=== PATIENT | female | born 1950 | race Caucasian/White ===

== ENCOUNTER → 2021-07-30 | Outpatient (CLI) | payer MEDICARE, SELFPAY ==
[2021-07-30 10:48] LABS: International Normalized Ratio 2.3; Prothrombin Time (Protime)PT. 24.9 SECONDS (11.7-14.9)
== END | disposition home or self-care (01) ==
LOC: LABSPEC 10:16
PROVIDERS: PCP Family Medicine; Referring Provider Family Medicine; Visit Provider Family Medicine
DX: I48.0 Paroxysmal atrial fibrillation (principal); Z79.01 Long term (current) use of anticoagulants; Z86.73 Personal history of transient ischemic attack (TIA), and cerebral infarction without residual deficits
CPT/HCPCS: 85610

== ENCOUNTER 2022-02-28 09:38 | Inpatient (IN) | payer MEDICARE, SELFPAY ==
[2022-02-28] VITALS (17 sets, daily range): BP systolic 92–132; BP diastolic 41–81; PULSE 84–108; RESP 13–20; TEMP 35.6–37.5; O2SAT 95–100; BMI 30.2; BMI 30.6
--- NOTE | 2022-02-28 09:56 | EDS_ITS ---
HPI History of Present Illness Chief Complaint: Weakness Narrative Narrative: 71-year-old female presenting with generalized weakness. She was sent to the emergency room specifically because her hemoglobin is low. Patient has a history of bleeding internal and external hemorrhoids. She is on Coumadin due to history of A. fib. She states last time she was in the hospital a couple of years ago she had upper and lower endoscopy and notes that she had internal and external hemorrhoids but also states that they could not find a source of bleeding. Patient has been transfused several times. Patient's hemoglobin from 09/27/2021 was 12.5 and this was rechecked again on 02/26/2022 and is now 8.6. The patient does note that she does have dark stool but states its not black. She states she has noted that her external hemorrhoids have not been bleeding and she wears a pad. She feels generally fatigued and does have difficulty walking across the room. At times she feels short of breath. She does note that she is more pale than usual. [facility] Medical History Acute blood loss anemia Aspiration pneumonia Bleeding hemorrhoids Essential (primary) hypertension History of CVA (cerebrovascular accident) (2009) History of idiopathic hypertrophic subaortic stenosis History of lower GI bleeding (10/26/15) Hyperlipidemia Hypertrophic cardiomyopathy Hypotension Iron deficiency anemia Left bundle branch block Nonrheumatic mitral (valve) insufficiency Nonrheumatic tricuspid (valve) insufficiency Paroxysmal atrial fibrillation Secondary pulmonary hypertension Tobacco use Troponin I above reference range Vitamin B 12 deficiency Home Medications pravastatin 40 mg tablet 40 mg PO DAILY 02/03/13 [History Last Taken 02/27/22] polysaccharide iron complex 150 mg iron capsule (Ferrex) 150 mg PO DAILY 10/01/18 [History Last Taken Unknown] metoprolol tartrate 50 mg tablet 50 mg PO BID #180 tabs 11/02/18 [Rx Last Taken 02/27/22] omeprazole 20 mg capsule,delayed release 20 mg PO DAILY GERD 02/28/22 [History Last Taken 02/27/22] warfarin 4 mg tablet 4 mg PO DAILY 02/28/22 [History Last Taken 02/27/22] Allergy/AdvReac Type Severity Reaction Status Date / Time verapamil Allergy Unknown Verified 02/28/22 09:39 Family History Mother Diabetes Heart disease Father Cancer Surgical History History of right and left heart catheterization (04/04/16) 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) Social History Smoking Status: Former smoker quit date: 01/09/17 pack-years: 24 ROS ROS ED Constitutional Constitutional ED: Denies chills or fever(s) Eyes Eyes: Denies change in vision or diplopia ENT ENT ED: Denies rhinorrhea or sore throat Cardiovascular Cardiovascular: Denies chest pain or palpitations Respiratory/Chest Respiratory/Chest: Reports dyspnea on exertion Gastrointestinal Gastrointestinal: Reports melena; Denies abdominal pain, nausea or vomiting Genitourinary Genitourinary ED: Denies dysuria or hematuria Musculoskeletal Musculoskeletal: Denies arthralgias Integumentary Reports other Details: Pallor ; Denies abscess Neurologic Neurologic: Denies headache(s) or paresthesias Psychiatric Psychiatric: Denies anxiety or depression EXAM Physical Exam Const Vital Signs: 02/28/22 09:39 02/28/22 10:45 02/28/22 10:58 Temperature 96.0 F L Temperature Source Temporal Pulse Rate 94 Pulse Rate [Lying] 90 Pulse Rate [Sitting (for 1 minute prior to obtaining)] 100 Pulse Rate [Standing (for 1 minute prior to obtaining)] 108 H Respiratory Rate 17 Respiratory Effort Normal Non-Labored Respiratory Pattern Normal Blood Pressure 125/81 H Blood Pressure [Lying] 113/56 L Blood Pressure [Sitting (for 1 minute prior to obtaining)] 122/72 H Blood Pressure [Standing (for 1 minute prior to obtaining)] 94/41 L Blood Pressure Mean 95 Blood Pressure Mean [Lying] 75 Blood Pressure Mean [Sitting (for 1 minute prior to obtaining)] 88 Blood Pressure Mean [Standing (for 1 minute prior to obtaining)] 58 Blood Pressure Source Blood Pressure Position Blood Pressure Location Pulse Ox 100 Oxygen Delivery Method Room Air 02/28/22 11:31 02/28/22 11:46 02/28/22 11:50 Temperature 98.0 F 98.4 F Temperature Source Oral Oral Pulse Rate 87 88 88 Pulse Rate [Lying] Pulse Rate [Sitting (for 1 minute prior to obtaining)] Pulse Rate [Standing (for 1 minute prior to obtaining)] Respiratory Rate 13 13 20 H Respiratory Effort Respiratory Pattern Blood Pressure 108/67 112/58 L 112/58 L Blood Pressure [Lying] Blood Pressure [Sitting (for 1 minute prior to obtaining)] Blood Pressure [Standing (for 1 minute prior to obtaining)] Blood Pressure Mean 80 76 76 Blood Pressure Mean [Lying] Blood Pressure Mean [Sitting (for 1 minute prior to obtaining)] Blood Pressure Mean [Standing (for 1 minute prior to obtaining)] Blood Pressure Source Monitor Monitor Blood Pressure Position Semi-Fowlers Semi-Fowlers Blood Pressure Location Left Arm Left Arm Pulse Ox 98 98 97 Oxygen Delivery Method Room Air Room Air Room Air 02/28/22 12:27 02/28/22 12:43 02/28/22 13:26 Temperature 98.4 F 98.6 F 97.7 F L Temperature Source Oral Oral Oral Pulse Rate 87 86 85 Pulse Rate [Lying] Pulse Rate [Sitting (for 1 minute prior to obtaining)] Pulse Rate [Standing (for 1 minute prior to obtaining)] Respiratory Rate 14 20 H 16 Respiratory Effort Respiratory Pattern Blood Pressure 106/60 103/56 L 92/71 Blood Pressure [Lying] Blood Pressure [Sitting (for 1 minute prior to obtaining)] Blood Pressure [Standing (for 1 minute prior to obtaining)] Blood Pressure Mean 75 71 78 Blood Pressure Mean [Lying] Blood Pressure Mean [Sitting (for 1 minute prior to obtaining)] Blood Pressure Mean [Standing (for 1 minute prior to obtaining)] Blood Pressure Source Monitor Monitor Blood Pressure Position Semi-Fowlers Semi-Fowlers Blood Pressure Location Left Arm Pulse Ox 97 97 97 Oxygen Delivery Method Room Air Room Air Room Air Positive well nourished General Appearance ED: NAD HEENT Reports moist mucous membranes Eyes PERRL and EOMs intact bilaterally General Eye ED: Yes pale conjunctiva Neck no lymphadenopathy Resp normal respiratory effort and clear to auscultation bilaterally Auscultation: Negative for rales or rhonchi Cardio regular rate and regular rhythm GI normal to inspection, nondistended, normoactive bowel sounds GI Narrative: Multiple external hemorrhoids which appear to be nonthrombosed, nonbleeding, minimally tender Neuro oriented x3 and CN's II-XII intact bilaterally Sensorium / Orientation: alert Motor Exam: general weakness Psych mental status grossly normal MDM MDM MDM Narrative Medical decision making narrative: Patient presenting with anemia and generalized fatigue. She does have a history of anemia. She states she has been transfused about 5 times. Patient's hemoglobin has dropped from 12.5-8.6. Her last hemoglobin was 2 days ago. We will obtain a CBC to assess for worsening anemia. Liver function and electrolytes will also be assessed given her weakness. For this reason a urinalysis will also be obtained. Since likely the source is acute blood loss anemia I will have her typed and screened. CBC shows a white blood cell count of 6.6 which is normal. Hemoglobin is dropped to 6.8. Platelets are normal at 194. Patient was typed, screened, crossmatched for 2 units. Orthostatics were positive. INR is therapeutic at 3.1. Renal function and electrolytes within normal limits. Glucose is elevated at 189 without anion gap. Liver function testing is normal. High-sensitivity troponin is 26. EKG was obtained and this shows normal sinus rhythm at a ventricular rate of 83 bpm with a left bundle branch block. Chest x-ray was a obtained due to dyspnea with exertion and this shows no acute cardiopulmonary process. Urinalysis was obtained due to generalized weakness and this shows positive nitrites, 500 leukocyte esterase, 25-50 white blood cells with 2+ bacteria. There are 5 to 10 seconds epithelial cells but given her weakness I did give her a gram of Rocephin and sent her urine for culture. I spoke with Dr. Blank from GI who recommended holding her Coumadin and giving her a bowel prep and he would perform upper and lower endoscopy tomorrow. This was discussed with the patient as well and she is amenable to this. She would not let me do an occult stool and refused a digital rectal exam. She did let me externally examine her rectum and there are again hemorrhoids here that are not actively bleeding and do not look thrombosed or infected. There is no blood visualized. Patient was discussed with hospitalist for admission. Impression: 1. Generalized weakness 2. Acute blood loss anemia 3. UTI 4. Dyspnea Lab Data Attestation: I reviewed the patient's lab results. Labs: Laboratory Results - last 24 hr 02/28/22 02/28/22 02/28/22 09:55 09:55 09:55 WBC 6.6 RBC 2.19 L Hgb 6.8 L Hct 20.9 L MCV 95.4 MCH 31.1 MCHC 32.5 RDW Std Deviation 47.8 H RDW Coeff of Aubree 16.0 H Plt Count 194 MPV 9.6 Immature Gran % (Auto) 0.600 Neut % (Auto) 61.4 Lymph % (Auto) 28.5 [place] % (Auto) 7.3 Eos % (Auto) 1.4 Baso % (Auto) 0.8 Absolute Neuts (auto) 4.1 Absolute Lymphs (auto) 1.88 Nucleated RBC % 0 PT 31.4 H INR 3.1 Sodium 141 Potassium 3.6 Chloride 110 H Carbon Dioxide 22.0 Anion Gap 9 BUN 17 Creatinine 0.88 Estim Creat Clear Calc 61.16 Est GFR (MDRD) Af Amer 81 Est GFR (MDRD) Non-Af 67 BUN/Creatinine Ratio 19.4 Glucose 189 H Calcium 8.3 L Phosphorus Magnesium Total Bilirubin 0.40 AST 17 ALT 17 Alkaline Phosphatase 58 Troponin I High Sens 26 Total Protein 6.2 L Albumin 3.1 L Globulin 3.1 Albumin/Globulin Ratio 1.0 Urine Color Urine Clarity Urine pH Ur Specific [place] Urine Protein Urine Glucose (UA) Urine Ketones Urine Occult Blood Urine Nitrite Urine Bilirubin Urine Urobilinogen Ur Leukocyte Esterase Urine RBC Urine WBC Ur Squamous Epith Cells Urine Bacteria Urine Mucus Blood Type Antibody Screen Crossmatch 02/28/22 02/28/22 02/28/22 09:55 09:55 09:55 WBC RBC Hgb Hct MCV MCH MCHC RDW Std Deviation RDW Coeff of [place] Plt Count MPV Immature Gran % (Auto) Neut % (Auto) Lymph % (Auto) [place] % (Auto) Eos % (Auto) Baso % (Auto) Absolute Neuts (auto) Absolute Lymphs (auto) Nucleated RBC % PT INR Sodium Potassium Chloride Carbon Dioxide Anion Gap BUN Creatinine Estim Creat Clear Calc Est GFR (MDRD) Af Amer Est GFR (MDRD) Non-Af BUN/Creatinine Ratio Glucose Calcium Phosphorus 2.2 L Magnesium 1.7 Total Bilirubin AST ALT Alkaline Phosphatase Troponin I High Sens Total Protein Albumin Globulin Albumin/Globulin Ratio Urine Color Urine Clarity Urine pH Ur Specific [place] Urine Protein Urine Glucose (UA) Urine Ketones Urine Occult Blood Urine Nitrite Urine Bilirubin Urine Urobilinogen Ur Leukocyte Esterase Urine RBC Urine WBC Ur Squamous Epith Cells Urine Bacteria Urine Mucus Blood Type A POSITIVE Antibody Screen NEGATIVE Crossmatch See Detail 02/28/22 11:15 WBC RBC Hgb Hct MCV MCH MCHC RDW Std Deviation RDW Coeff of [place]ree Plt Count MPV Immature Gran % (Auto) Neut % (Auto) Lymph % (Auto) [place] % (Auto) Eos % (Auto) Baso % (Auto) Absolute Neuts (auto) Absolute Lymphs (auto) Nucleated RBC % PT INR Sodium Potassium Chloride Carbon Dioxide Anion Gap BUN Creatinine Estim Creat Clear Calc Est GFR (MDRD) Af Amer Est GFR (MDRD) Non-Af BUN/Creatinine Ratio Glucose Calcium Phosphorus Magnesium Total Bilirubin AST ALT Alkaline Phosphatase Troponin I High Sens Total Protein Albumin Globulin Albumin/Globulin Ratio Urine Color Yellow Urine Clarity Sl. Cloudy Urine pH 5.0 Ur Specific [place] 1.020 Urine Protein 15 H Urine Glucose (UA) Normal Urine Ketones 5 H Urine Occult Blood 10 H Urine Nitrite Positive H Urine Bilirubin 1 H Urine Urobilinogen 1 H Ur Leukocyte Esterase 500 H Urine RBC 0-5 SEEN Urine WBC 25-50 SEEN Ur Squamous Epith Cells 5-10 SEEN Urine Bacteria 2+ Urine Mucus 0 SEEN Blood Type Antibody Screen Crossmatch Radiography Diagnostic Testing: Clinical Impression(s) from Imaging Studies Chest X-Ray 02/28/22 10:30 IMPRESSION: Minimal increased linear markings in the left midlung suggestive of either linear atelectasis and/or scarring. Hiatal hernia. Electronically Signed: Dany Frye MD at 10:47 EST , Discharge Plan Triage Chief Complaint: Weakness ED Provider: Alphonso Mei Dx/Rx/DC Orders Primary Care Provider: Guille Zarate
[2022-02-28 10:14] LABS: Absolute Lymphocyte Count 1.88 X10^3/uL (0.83-4.51); Absolute Neutrophil Count 4.1 X10^3/uL (2.0-7.7); Basophil# 0.05 X10^3/uL; Basophil% 0.8 % (0-1); Eosinophil# 0.09 X10^3/uL; Eosinophils% 1.4 % (0-5); Hematocrit 20.9 % (37-47); Hemoglobin 6.8 g/dL (12.0-15.0); Lymphocyte # 1.88 X10^3/ul (0.83-4.51); Lymphocyte % 28.5 % (19-41); Mean Corp Hgb Conc 32.5 g/dL (32-36); Mean Corpuscular Hgb 31.1 pg (27.0-32.0); Mean Corpuscular Volume 95.4 fL (81-99); Mean Platelet Vol. 9.6 fl (6.2-12.0); Monocyte# 0.48 X10^3/uL; Monocyte% 7.3 % (0-10); NRBC Flagged by Analyzer 0 % (0-5); Neutrophil # 4.05 X10^3/uL (2.7-7.7); Neutrophil % 61.4 % (47-70); Platelet Count 194 K/mm3 (150-450); RBC Distribution Width SD 47.8 fl (35.1-43.9); Red Blood Count 2.19 M/mm3 (4.2-5.4); White Blood Count 6.6 K/mm3 (4.4-11.0)
[2022-02-28 10:23] LABS: International Normalized Ratio 3.1; Prothrombin Time (Protime)PT. 31.4 SECONDS (11.7-14.9)
--- NOTE | 2022-02-28 10:30 | RAD_ITS ---
STUDY: X-RAY CHEST REASON FOR EXAM: Female, 71 years old. Weakness, dyspnea TECHNIQUE: Single AP portable view of the chest. COMPARISON: None. FINDINGS: EKG electrodes are seen. Hyperinflation. Mild increased linear markings in the left midlung suggestive of either linear atelectasis and/or scarring. There is no demonstrated pleural abnormality. Sternal cerclage wires and vascular clips are present from a prior sternotomy and coronary artery bypass graft procedure (CABG). Normal mediastinum and jennie. Normal visualized pulmonary arteries. There is atherosclerotic calcification of the aortic arch with tortuosity. Normal visualized thoracic spine. Normal visualized ribs, clavicles, and shoulders. Hiatal hernia. RAD/Chest 1 View (Portable) IMPRESSION: Minimal increased linear markings in the left midlung suggestive of either linear atelectasis and/or scarring. Hiatal hernia. Electronically Signed: Dany Frye MD at 10:47 EST ,
[2022-02-28 10:35] LABS: AST(SGOT) 17 U/L (15-37); Alanine Aminotransfer ALT/SGPT 17 U/L (13-56); Albumin, Serum 3.1 g/dL (3.2-5.0); Alkaline Phosphatase 58 U/L (45-117); Anion Gap 9 (5-15); BUN 17 mg/dL (7-18); BUN/Creat Ratio 19.4 RATIO (10-20); Calcium,Total 8.3 mg/dL (8.5-10.1); Chloride 110 mmol/L (98-107); Creatinine, Serum 0.88 mg/dL (0.55-1.02); EST Glomerular Filtration Rate 67 mL/min (>60); Est Glom Filt Rate - Afr Amer 81 mL/min (>60); Estimated Creatinine Clearance 61.16 ml/min; Globulin 3.1 g/dL (2.2-4.2); Glucose 189 mg/dL (74-106); Potassium 3.6 mmol/L (3.5-5.1); Protein, Total 6.2 g/dL (6.4-8.2); Sodium Level 141 mmol/L (136-145); Troponin-I HS 26 pg/mL (3.0-54.0)
[2022-02-28 11:20] LABS: Mucous, Urine 0 SEEN /hpf (<or=2+)
[2022-02-28 11:24] LABS: Color, Urine Yellow (Yellow); Glucose, Dipstick Normal (Normal); Ketone-Dipstick 5 mg/dl (Negative); Leukocyte Esterase-Dipstick 500 /ul (Negative); Nitrite-Dipstick Positive (Negative); Occult Blood-Urine 10 /ul (Negative); Protein-Dipstick 15 mg/dl (Negative); Urine Bilirubin Dipstick 1 mg/dL (Negative); Urine Clarity Sl. Cloudy (Clear); Urine Urobilinogen 1 mg/dl (Normal)
[2022-02-28 11:33] LABS: Red Blood Cells-Urine 0-5 SEEN /hpf (0-5); White Blood Cells 25-50 SEEN /hpf (0-5)
[2022-02-28 11:34] LABS: Bacteria 2+ /hpf (None Seen); Squamous Epithelial Cells - UA 5-10 SEEN /hpf (5-10)
[2022-02-28] MEDS: Ceftriaxone 1 GM/50 ML BAG IV (12:40)
--- NOTE | 2022-02-28 13:26 | EKG12_ITS ---
Test Reason : ADMISSION Blood Pressure : / mmHG Vent. Rate : 083 BPM Atrial Rate : 083 BPM P-R Int : 140 ms QRS Dur : 156 ms QT Int : 440 ms P-R-T Axes : 061 014 164 degrees QTc Int : 517 ms Normal sinus rhythm Left bundle branch block Abnormal ECG Confirmed by MAYRA HARDEN, SHIRA ([id number]), telegraph editor KRIS STEWART ([id number]) on 03/03/2022 11:46:11 AM Referred By: Confirmed By:SHIRA NUNEZ MD
--- NOTE | 2022-02-28 13:37 | PCM.HP.STD ---
HPI - General General Date of Admission: 02/28/22 Date of Service: 02/28/22 Chief Complaint: Intermittent rectal bleed for 3 years HPI Narrative RICHARD ROSA, is a 71 F with multiple comorbidities came to ED for intermittent rectal bleed for last 3 years. She has sometimes increased rectal bleeding with straining, bright red in color which has worsened recently. She had multiple colonoscopies last one about 2 to [address] Raphael and says she has internal and external hemorrhoids. Dr. James also did colonoscopy on her. She denies hematemesis or melena. Denies abdominal pain. She does not have burning micturition increased frequency or urgency but he states he feels sometimes warm sensation. In ED, Her blood pressure normal 125/81 but dropped down to 92/71. Patient is not tachycardic heart rate in 55. No tachypnea or hypoxia. Hemoglobin was found 6.8 g%. Platelet count normal 1 94,000. INR 3.1, patient is on warfarin for idiopathic hypertrophic subaortic stenosis and history of multiple strokes. 1 unit of PRBC transfusion running. UA positive of nitrite, LE 500, WBC 25?50 cells, RBC 0-5 cells and patient started on IV ceftriaxone. [facility] Medical History Acute blood loss anemia Aspiration pneumonia Bleeding hemorrhoids Essential (primary) hypertension History of CVA (cerebrovascular accident) (2009) History of idiopathic hypertrophic subaortic stenosis History of lower GI bleeding (10/26/15) Hyperlipidemia Hypertrophic cardiomyopathy Hypotension Iron deficiency anemia Left bundle branch block Nonrheumatic mitral (valve) insufficiency Nonrheumatic tricuspid (valve) insufficiency Paroxysmal atrial fibrillation Secondary pulmonary hypertension Tobacco use Troponin I above reference range Vitamin B 12 deficiency Home Medications pravastatin 40 mg tablet 40 mg PO DAILY 02/03/13 [History Last Taken 02/27/22] polysaccharide iron complex 150 mg iron capsule (Ferrex) 150 mg PO DAILY 10/01/18 [History Last Taken Unknown] metoprolol tartrate 50 mg tablet 50 mg PO BID #180 tabs 11/02/18 [Rx Last Taken 02/27/22] omeprazole 20 mg capsule,delayed release 20 mg PO DAILY GERD 02/28/22 [History Last Taken 02/27/22] warfarin 4 mg tablet 4 mg PO DAILY 02/28/22 [History Last Taken 02/27/22] Allergy/AdvReac Type Severity Reaction Status Date / Time verapamil Allergy Unknown Verified 02/28/22 09:39 Family History Mother Diabetes Heart disease Father Cancer Surgical History History of right and left heart catheterization (04/04/16) 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) Social History Smoking Status: Former smoker quit date: 01/09/17 pack-years: 24 ROS ROS Narrative Constitutional: Physical debility. Shortness of breath, increased fatigue and weakness even within home. Cannot climb stairs. HEENT: Reports systems reviewed and no addt'l complaints, except as documented Respiratory/Chest: Denies chest pain, shortness of breath at rest. Shortness of breath on exertion. Gastrointestinal: As described in HPI. No abdominal pain Genitourinary: Denies burning urination or new urinary tract symptoms Musculoskeletal: Reports joint pain and limited range of motion. Bilateral knee and hip joints arthritis Neurologic: Denies seizure-like activity. No acute weakness or sensory change.. skin: No ulcer. No rash Endocrinology: Reports systems reviewed and no addt'l complaints, except as documented Hematologic/Lymphatic: Reports systems reviewed and no addt'l complaints, except as documented Rest 14 ROS are negative except as mentioned in HPI Vital Signs Vital Signs Vital Signs: 02/28/22 09:39 02/28/22 10:45 02/28/22 10:58 Temperature 96.0 F L Temperature Source Temporal Pulse Rate 94 Pulse Rate [Lying] 90 Pulse Rate [Sitting (for 1 minute prior to obtaining)] 100 Pulse Rate [Standing (for 1 minute prior to obtaining)] 108 H Respiratory Rate 17 Respiratory Effort Normal Non-Labored Respiratory Pattern Normal Blood Pressure 125/81 H Blood Pressure [Lying] 113/56 L Blood Pressure [Sitting (for 1 minute prior to obtaining)] 122/72 H Blood Pressure [Standing (for 1 minute prior to obtaining)] 94/41 L Blood Pressure Mean 95 Blood Pressure Mean [Lying] 75 Blood Pressure Mean [Sitting (for 1 minute prior to obtaining)] 88 Blood Pressure Mean [Standing (for 1 minute prior to obtaining)] 58 Blood Pressure Source Blood Pressure Position Blood Pressure Location Pulse Ox 100 Oxygen Delivery Method Room Air 02/28/22 11:31 02/28/22 11:46 02/28/22 11:50 Temperature 98.0 F 98.4 F Temperature Source Oral Oral Pulse Rate 87 88 88 Pulse Rate [Lying] Pulse Rate [Sitting (for 1 minute prior to obtaining)] Pulse Rate [Standing (for 1 minute prior to obtaining)] Respiratory Rate 13 13 20 H Respiratory Effort Respiratory Pattern Blood Pressure 108/67 112/58 L 112/58 L Blood Pressure [Lying] Blood Pressure [Sitting (for 1 minute prior to obtaining)] Blood Pressure [Standing (for 1 minute prior to obtaining)] Blood Pressure Mean 80 76 76 Blood Pressure Mean [Lying] Blood Pressure Mean [Sitting (for 1 minute prior to obtaining)] Blood Pressure Mean [Standing (for 1 minute prior to obtaining)] Blood Pressure Source Monitor Monitor Blood Pressure Position Semi-Fowlers Semi-Fowlers Blood Pressure Location Left Arm Left Arm Pulse Ox 98 98 97 Oxygen Delivery Method Room Air Room Air Room Air 02/28/22 12:27 02/28/22 12:43 02/28/22 13:26 Temperature 98.4 F 98.6 F 97.7 F L Temperature Source Oral Oral Oral Pulse Rate 87 86 85 Pulse Rate [Lying] Pulse Rate [Sitting (for 1 minute prior to obtaining)] Pulse Rate [Standing (for 1 minute prior to obtaining)] Respiratory Rate 14 20 H 16 Respiratory Effort Respiratory Pattern Blood Pressure 106/60 103/56 L 92/71 Blood Pressure [Lying] Blood Pressure [Sitting (for 1 minute prior to obtaining)] Blood Pressure [Standing (for 1 minute prior to obtaining)] Blood Pressure Mean 75 71 78 Blood Pressure Mean [Lying] Blood Pressure Mean [Sitting (for 1 minute prior to obtaining)] Blood Pressure Mean [Standing (for 1 minute prior to obtaining)] Blood Pressure Source Monitor Monitor Blood Pressure Position Semi-Fowlers Semi-Fowlers Blood Pressure Location Left Arm Pulse Ox 97 97 97 Oxygen Delivery Method Room Air Room Air Room Air Weight Weight: 150 lb Body Mass Index (BMI) 30.2 Physical Exam Narrative Physical exam General: Alert, Oriented x3, Cooperative, looks fatigued HEENT: Atraumatic, PERRLA, EOMI, Normocephalic Oral: Oral mucosa dry. No Gingival or Mucosal Lesions/ Ulcerations Neck: Supple, No JVD, Negative Carotid Bruits Lungs: Air entry diminished in bilateral lung bases. No crepitation/rhonchi Cardiovascular:Midline sternal cardiac surgical scar. Regular rate, Regular Rhythm, Normal S1, Normal S2, grade 4/6 systolic murmur over LLSB and cardiac apex. Abdomen: Bowel Sounds Present, Soft, Non Tender, Non-Distended : No renal angle tenderness. No suprapubic tenderness. Extremities: Mild bilateral pitting ankle edema, Capillary Refill Less than 3 Seconds Skin: No rashes, No breakdown Musculoskeletal: No Tenderness to Palpation of Joints or Extremities. Bilateral knee and hip joints arthritis. Neurological: Cranial nerves II-XII grossly intact, DTR 2+/4, no focal acute deficit Psych/Mental Status: Flat affect. Results Lab / Micro Data Result Diagrams: 02/28/22 09:55 02/28/22 09:55 Labs: Laboratory Results - last 24 hr 02/28/22 09:55: WBC 6.6, RBC 2.19 L, Hgb 6.8 L, Hct 20.9 L, MCV 95.4, MCH 31.1, MCHC 32.5, RDW Std Deviation 47.8 H, RDW Coeff of Aubree 16.0 H, Plt Count 194, MPV 9.6, Immature Gran % (Auto) 0.600, Neut % (Auto) 61.4, Lymph % (Auto) 28.5, [place] % (Auto) 7.3, Eos % (Auto) 1.4, Baso % (Auto) 0.8, Absolute Neuts (auto) 4.1, Absolute Lymphs (auto) 1.88, Nucleated RBC % 0 02/28/22 09:55: PT 31.4 H, INR 3.1 02/28/22 09:55: Sodium 141, Potassium 3.6, Chloride 110 H, Carbon Dioxide 22.0, Anion Gap 9, BUN 17, Creatinine 0.88, Estim Creat Clear Calc 61.16, Est GFR (MDRD) Af Amer 81, Est GFR (MDRD) Non-Af 67, BUN/Creatinine Ratio 19.4, Glucose 189 H, Calcium 8.3 L, Total Bilirubin 0.40, AST 17, ALT 17, Alkaline Phosphatase 58, Troponin I High Sens 26, Total Protein 6.2 L, Albumin 3.1 L, Globulin 3.1, Albumin/Globulin Ratio 1.0 02/28/22 09:55: Blood Type A POSITIVE, Antibody Screen NEGATIVE 02/28/22 09:55: Crossmatch See Detail 02/28/22 11:15: Urine Color Yellow, Urine Clarity Sl. Cloudy, Urine pH 5.0, Ur Specific [place] 1.020, Urine Protein 15 H, Urine Glucose (UA) Normal, Urine Ketones 5 H, Urine Occult Blood 10 H, Urine Nitrite Positive H, Urine Bilirubin 1 H, Urine Urobilinogen 1 H, Ur Leukocyte Esterase 500 H, Urine RBC 0-5 SEEN, Urine WBC 25-50 SEEN, Ur Squamous Epith Cells 5-10 SEEN, Urine Bacteria 2+, Urine Mucus 0 SEEN Radiology Impression Chest X-Ray 02/28/22 10:30 IMPRESSION: Minimal increased linear markings in the left midlung suggestive of either linear atelectasis and/or scarring. Hiatal hernia. Electronically Signed: Dany Frye MD at 10:47 EST , Assessment & Plan Assessment/Plan (1) Acute lower GI bleeding: PLAN: Plan This is 70-year-old female is being admitted for acute worsening of chronic lower GI bleed for last 3 years along with increase in fatigue, dyspnea on exertion and generalized weakness. 1. Acute on recurrent chronic lower GI bleed: Patient is being admitted in PCU. Most recent BP is low 92/71, heart rate 85. Patient having 1 unit of PRBC transfusion. Ringer lactate 1 L ordered. IV PPI every 12 hourly as patient might have upper GI bleed with rapid transit although less likely. 2. Chronic severe blood loss anemia: Patient last hemoglobin 13.4 g in March 2016. In ED, H&H 6.8/21%. Platelet count normal. Clear liquid diet. Try to keep hemoglobin between 8 to 9 g%. Continue iron when oral is alone along with ascorbic acid. 3. Idiopathic hypertrophic obstructive subaortic stenosis, MR, paroxysmal A. fib and left bundle branch block: Patient used to follow [facility] dress[facility] and one-time Dr. Nava cardiology visit in about 2018. She had history of ventricular septal myomectomy in July 2016. Patient on warfarin, warfarin held. INR 3.0. Twelve-lead EKG ordered. Heart rate is controlled. Home metoprolol 50 mg decreased to 25 mg twice daily. Continue pravastatin. Last echo in our system in May 2018 reported LV size is small with severe LVH, systolic function normal. EF 70%. Moderate 3+ MR related to HOCM with MARIAN, status post myectomy. LVOT gradient at rest 74 mmHg with S.A.M. 4. Asymptomatic bacteriuria with low suspicion of UTI: UA is positive of nitrite and LE 500, WBC 25 200 cells. Empirically on IV ceftriaxone will continue with 4. Other comorbidities include hypertension, dyslipidemia, history of stroke/TIA: Home medication reconciliation done. 5. DVT prophylaxis: Bilateral SCDs. Pharmacological prophylaxis contraindicated. Living will/advanced directive/end of life care: Patient does not have living will or advanced directive. After discussion of benefits/risks procedures involved with full code, DNR CC arrest and DNR CC, the patient and her daughter near the bedside. They opted for DNRCC arrest with no intubation. Patient doesn't want artificial life support including intubation, tube feed, ventilator and/chest compression, central venous catheter, vasopressor and DC shock if needed Total time spent in [id number] encounter in discussion of advanced directive 16 minutes. Charges/Coding Visit Charges Inpatient E&M: 58672 Init Hosp L3 Procedures Hospitalists Procedures: 19293 Advncd Care Plan 30 Min
[2022-02-28 14:14] LABS: Magnesium 1.7 mg/dL (1.6-2.6); Phosphorus 2.2 mg/dL (2.5-4.9)
[2022-02-28] MEDS: Lactated Ringers 1,000 ML 100 ML IV (16:13)
[2022-02-28] MEDS: Ascorbic Acid 500 MG Tablet PO (16:14)
[2022-02-28 18:29] LABS: Hematocrit 27.4 % (37-47); Hemoglobin 8.8 g/dL (12.0-15.0)
--- NOTE | 2022-02-28 19:09 | EX.PCM.CON.G ---
HPI Consult Data Date of Consult: 02/28/22 HPI Narrative Reason for Consultation: Anemia HPI Narrative: RICHARD ROSA, is a 71 F who presents She has an extensive past medical history including previous lower GI bleeding, which was suspected to be hemorrhoidal bleeding, iron deficiency anemia likely secondary to that, chronic tobacco use, hypertension, hyperlipidemia, previous TIA. In the past, the patient has noted bright red blood per rectum. She has had endoscopy performed by Dr. Carrillo James.? Her last endoscopy was, I believe, 2012.? Upper endoscopy demonstrated no abnormalities.? Lower endoscopy could not be completed due to tortuosity.? It was expected at that time that the bleeding site was hemorrhoids or lower GI bleeding.? A barium enema was performed to visualize the colon.? The patient had dense diverticulosis on imaging.? The patient refused hemorrhoidectomy and still would refuse hemorrhoidectomy.? She notes occasional episodes of bright red blood per rectum.? At this time with today's episode of bright red blood per rectum, which she noted and tried to set up, she did feel dizzy and weak.? She nearly passed out and proceeded to the Emergency Department with these complaints.? [facility] Medical History Acute blood loss anemia Aspiration pneumonia Bleeding hemorrhoids Essential (primary) hypertension History of CVA (cerebrovascular accident) (2009) History of idiopathic hypertrophic subaortic stenosis History of lower GI bleeding (10/26/15) Hyperlipidemia Hypertrophic cardiomyopathy Hypotension Iron deficiency anemia Left bundle branch block Nonrheumatic mitral (valve) insufficiency Nonrheumatic tricuspid (valve) insufficiency Paroxysmal atrial fibrillation Secondary pulmonary hypertension Tobacco use Troponin I above reference range Vitamin B 12 deficiency Home Medications pravastatin 40 mg tablet 40 mg PO DAILY 02/03/13 [History Last Taken 02/27/22] polysaccharide iron complex 150 mg iron capsule (Ferrex) 150 mg PO DAILY 10/01/18 [History Last Taken Unknown] metoprolol tartrate 50 mg tablet 50 mg PO BID #180 tabs 11/02/18 [Rx Last Taken 02/27/22] omeprazole 20 mg capsule,delayed release 20 mg PO DAILY GERD 02/28/22 [History Last Taken 02/27/22] warfarin 4 mg tablet 4 mg PO DAILY 02/28/22 [History Last Taken 02/27/22] Allergy/AdvReac Type Severity Reaction Status Date / Time verapamil Allergy Unknown Verified 02/28/22 09:39 Family History Mother Diabetes Heart disease Father Cancer Surgical History History of right and left heart catheterization (04/04/16) 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) Social History Smoking Status: Former smoker quit date: 01/09/17 pack-years: 24 ROS ROS Narrative Constitutional: Physical debility. Shortness of breath, increased fatigue and weakness even within home. Cannot climb stairs. HEENT: Reports systems reviewed and no addt'l complaints, except as documented Respiratory/Chest: Denies chest pain, shortness of breath at rest. Shortness of breath on exertion. Gastrointestinal: As described in HPI. No abdominal pain Genitourinary: Denies burning urination or new urinary tract symptoms Musculoskeletal: Reports joint pain and limited range of motion. Bilateral knee and hip joints arthritis Neurologic: Denies seizure-like activity. No acute weakness or sensory change.. skin: No ulcer. No rash Endocrinology: Reports systems reviewed and no addt'l complaints, except as documented Hematologic/Lymphatic: Reports systems reviewed and no addt'l complaints, except as documented Rest 14 ROS are negative except as mentioned in HPI Physical Exam Narrative Physical exam General: Alert, Oriented x3, Cooperative, looks fatigued HEENT: Atraumatic, PERRLA, EOMI, Normocephalic Oral: Oral mucosa dry. No Gingival or Mucosal Lesions/ Ulcerations Neck: Supple, No JVD, Negative Carotid Bruits Lungs: Air entry diminished in bilateral lung bases. No crepitation/rhonchi Cardiovascular:Midline sternal cardiac surgical scar. Regular rate, Regular Rhythm, Normal S1, Normal S2, grade 4/6 systolic murmur over LLSB and cardiac apex. Abdomen: Bowel Sounds Present, Soft, Non Tender, Non-Distended : No renal angle tenderness. No suprapubic tenderness. Extremities: Mild bilateral pitting ankle edema, Capillary Refill Less than 3 Seconds Skin: No rashes, No breakdown Musculoskeletal: No Tenderness to Palpation of Joints or Extremities. Bilateral knee and hip joints arthritis. Neurological: Cranial nerves II-XII grossly intact, DTR 2+/4, no focal acute deficit Psych/Mental Status: Flat affect. Lab / Micro Data Result Diagrams: 02/28/22 17:40 02/28/22 09:55 Labs: Laboratory Results - last 24 hr 02/28/22 09:55: WBC 6.6, RBC 2.19 L, Hgb 6.8 L, Hct 20.9 L, MCV 95.4, MCH 31.1, MCHC 32.5, RDW Std Deviation 47.8 H, RDW Coeff of Aubree 16.0 H, Plt Count 194, MPV 9.6, Immature Gran % (Auto) 0.600, Neut % (Auto) 61.4, Lymph % (Auto) 28.5, [place] % (Auto) 7.3, Eos % (Auto) 1.4, Baso % (Auto) 0.8, Absolute Neuts (auto) 4.1, Absolute Lymphs (auto) 1.88, Nucleated RBC % 0 02/28/22 09:55: PT 31.4 H, INR 3.1 02/28/22 09:55: Sodium 141, Potassium 3.6, Chloride 110 H, Carbon Dioxide 22.0, Anion Gap 9, BUN 17, Creatinine 0.88, Estim Creat Clear Calc 61.16, Est GFR (MDRD) Af Amer 81, Est GFR (MDRD) Non-Af 67, BUN/Creatinine Ratio 19.4, Glucose 189 H, Calcium 8.3 L, Total Bilirubin 0.40, AST 17, ALT 17, Alkaline Phosphatase 58, Troponin I High Sens 26, Total Protein 6.2 L, Albumin 3.1 L, Globulin 3.1, Albumin/Globulin Ratio 1.0 02/28/22 09:55: Blood Type A POSITIVE, Antibody Screen NEGATIVE 02/28/22 09:55: Crossmatch See Detail 02/28/22 09:55: Phosphorus 2.2 L, Magnesium 1.7 02/28/22 11:15: Urine Color Yellow, Urine Clarity Sl. Cloudy, Urine pH 5.0, Ur Specific [place] 1.020, Urine Protein 15 H, Urine Glucose (UA) Normal, Urine Ketones 5 H, Urine Occult Blood 10 H, Urine Nitrite Positive H, Urine Bilirubin 1 H, Urine Urobilinogen 1 H, Ur Leukocyte Esterase 500 H, Urine RBC 0-5 SEEN, Urine WBC 25-50 SEEN, Ur Squamous Epith Cells 5-10 SEEN, Urine Bacteria 2+, Urine Mucus 0 SEEN 02/28/22 17:40: Hgb 8.8 L, Hct 27.4 L Radiology Impression Chest X-Ray 02/28/22 10:30 IMPRESSION: Minimal increased linear markings in the left midlung suggestive of either linear atelectasis and/or scarring. Hiatal hernia. Electronically Signed: Dany Frye MD at 10:47 EST , Assessment & Plan Assessment/Plan (1) Acute lower GI bleeding: PLAN: The differential diagnosis for lower GI bleeding would be hemorrhoidal, diverticular, angiodysplasia, neoplasm, upper GI bleed with rapid transit. She does agree to undergoing upper endoscopy but not a colonoscopy at this time because she did not want to take the prep. She will undergo an upper endoscopy tomorrow. Recommend n.p.o. past midnight. Charges/Coding Visit Charges Inpatient E&M: 36790 Init Hosp L2
[2022-02-28] MEDS: Metoprolol Tartrate 50 MG Tablet 25 MG PO (20:54)
[2022-03-01] VITALS (11 sets, daily range): BP systolic 91–129; BP diastolic 45–73; PULSE 77–89; RESP 14–16; TEMP 36.1–36.8; O2SAT 93–96
--- NOTE | 2022-03-01 | ESO_PTH ---
PATIENT: RICHARD ROSA LOC: [facility] U#:[id number] AGE/SX: 71/F ROOM: [facility] RE02/28/[address]: Dr. Nicholas Polanco MD : 1950 BED: 1 DIS: 03/01/2022 SPEC #: [id number] RECD: 03/01/22 16:35 STATUS: [place] REQ #: [id number] [place]: 03/01/22 00:[address]: Jorje Blank DEPT: SURGICAL PATHOLOGY RECD BY: Robbie Ervin ENTERED: 03/03/22 11:25 SP TYPE: ESOPH BX OTHR DR: MD Dr. Nicholas Milian MD Tissues: Esophagus, NOS Procedures: Special Stain Group I Surgery Specimen Level IV GMS Stain (control) Comments: @ Specimen number changed from [id number] to [id number] @ on 03/03/22 at 1520 by CinemagramSTEPHEN. @ Ordering doctor for SUIV edited from to @ by COREY at 03/03/22 1521 @ Submitting doctor edited from to @ by COREY at 03/03/22 1521 HEADER OPERATION[place] [place] DIAGNOSIS: Acute lower GI bleeding TISSUE SUBMITTED: Random esophagus MICROSCOPIC DIAGNOSIS Esophagus, random biopsy: Fragments of benign squamous mucosa. Fungal organisms consistent with vero species. See comment. AM:dangelo 03/04/2022 COMMENT GMS stain with matched control was used in the evaluation of this case. MICROSCOPIC DESCRIPTION Slides are reviewed. GROSS DESCRIPTION Received in fixative is one container labeled with the patient's name and designated random esophagus. The specimen consists of multiple irregular fragments of light wong soft tissue that in aggregate measure 1 x 0.2 x 0.1 cm. The specimen is totally submitted in one cassette. / SJ:dangelo 03/03/2022 TC:5 CPT: 42912, 21416
[2022-03-01] MEDS: Potassium Chloride Oral Tablet 20 MEQ 40 MEQ PO (00:19)
--- NOTE | 2022-03-01 08:30 | OP.EGD_ITS ---
Patient Name: Catrina Wang Procedure Date: 03/01/2022 7:29 AM Date of : 1950 Age: 71 Procedure: Upper GI endoscopy Indications: Iron deficiency anemia Providers: Jorje Blank DO Medicines: Monitored Anesthesia Care Patient Profile: This is a 71 year old female. Refer to note in patient chart for documentation of history and physical. Patient has symptoms of chronic chest pain. Complications: No immediate complications. Procedure: Pre-Anesthesia Assessment: - Prior to the procedure, a History and Physical was performed, and patient medications and allergies were reviewed. The risks and benefits of the procedure and the sedation options and risks were discussed with the patient. All questions were answered and informed consent was obtained. Patient identification and proposed procedure were verified by the physician. Mental Status Examination: normal. CV Examination: normal. Prophylactic Antibiotics: The patient does not require prophylactic antibiotics. Prior Anticoagulants: The patient has taken no previous anticoagulant or antiplatelet agents. ASA Grade Assessment: II - A patient with mild systemic disease. After reviewing the risks and benefits, the patient was deemed in satisfactory condition to undergo the procedure. The anesthesia plan was to use monitored anesthesia care (MAC). Immediately prior to administration of medications, the patient was re-assessed for adequacy to receive sedatives. The heart rate, respiratory rate, oxygen saturations, blood pressure, adequacy of pulmonary ventilation, and response to care were monitored throughout the procedure. The physical status of the patient was re-assessed after the procedure. After obtaining informed consent, the endoscope was passed under direct vision. Throughout the procedure, the patient's blood pressure, pulse, and oxygen saturations were monitored continuously. The Endoscope was introduced through the mouth, and advanced to the second part of duodenum. The upper GI endoscopy was accomplished without difficulty. The patient tolerated the procedure well. Scope In: 8:19:14 AM Scope Out: 8:22:44 AM Total Procedure Duration Time 0 hours 3 minutes 30 seconds Findings: Patchy, white plaques were found in the lower third of the esophagus. Biopsies were taken with a cold forceps for histology. Verification of patient identification for the specimen was done. Estimated blood loss was minimal. A large hiatal hernia was present. No other significant abnormalities were identified in a careful examination of the stomach. The second portion of the duodenum was normal. Impression: - Esophageal plaques were found, consistent with candidiasis. Biopsied. - Large hiatal hernia. - Normal second portion of the duodenum. Recommendation: - Return patient to [facility] for ongoing care. - Resume previous diet. - Nystatin suspension 100,000 units PO QID for 5 weeks. - Continue present medications. Procedure Code(s): --- Professional --- 68601, Esophagogastroduodenoscopy, flexible, transoral; with biopsy, single or multiple CPT copyright 2017 [employer]. All rights reserved. The codes documented in this report are preliminary and upon associate brand manager review may be revised to meet current compliance requirements. Jorje Blank DO 03/01/2022 8:28:56 AM This report has been signed electronically. Number of Addenda: 0 Note Initiated On: 03/01/2022 7:29 AM
--- NOTE | 2022-03-01 08:30 | OP.CCLET_ITS ---
03/01/2022 Guille Zarate [address] [place] [address] Re : Upper GI endoscopy procedure for Catrina Wang Dear Dr. Zarate This procedure was performed on Tuesday, March 01, 2022. My impressions and recommendations are as follows: Impressions : - Esophageal plaques were found, consistent with candidiasis. Biopsied. - Large hiatal hernia. - Normal second portion of the duodenum. Recommendations : - Return patient to [facility] for [facility] care. - Resume previous diet. - Nystatin suspension 100,000 units PO QID for 5 weeks. - Continue present medications. My findings are described in the full procedure note, which is enclosed. If I can be of further assistance, please feel free to contact me at . Sincerely, Jorje Blank, 03/01/2022 8:28:56 AM This report has been signed electronically.
--- NOTE | 2022-03-01 10:07 | DCINST_ITS ---
Discharge Instructions Diet Discharge Diet: Light diet - advance as tolerated (Advised soft diet for 5 days and then advance as per tolerated) Activity Discharge Activity: Return to Normal Activity and May Not Drive Weight Bearing Status: Weight bearing as tolerated Dressing / Incision Call your doctor if you observe: Fever of 101 or Higher, Coldness, Increased Pain, Numbness or Tingling, Change in Color, Inability to urinate, Inability to have a bowel movement, Using more than 1 pad per hour, Shortness of breath, Dizziness, Fainting spells, Swelling in the ankles, Chest pain, Prolonged hiccupping, Increased palpitations (irregular heartbeat) and Calf discomfort Follow Up Care When: IN 2 WEEKS Test Results: Test results from this visit will be discussed in further detail at your follow- up appointment, if applicable. Discharge Plan Admission Admit Date/Time: 02/28/22 13:32 Primary Reason for Your Visit: Lower GI bleed. Attending Provider: Nicholas Polanco Primary Care Provider: Guille Zarate Discharge Orders/Prescriptions Prescriptions: New nystatin 100,000 unit/mL Suspension 500,000 unit PO 4X/DAY 35 Days Qty: 700 0RF sennosides-docusate sodium [Stool Softener-Stimulant Laxat] 8.6-50 mg Tablet 2 tab PO BID PRN PRN (Reason: Constipation) Qty: 0 0RF ascorbic acid (vitamin C) 500 mg Tablet 500 mg PO BIDCM 30 Days Qty: 60 0RF ferrous sulfate [FeroSul] 325 mg (65 mg iron) tablet 325 mg PO QODAY Qty: 30 1RF Continued pravastatin 40 MG tablet 40 mg PO DAILY Label Comments: CHOLESTEROL warfarin 4 mg tablet 4 mg PO DAILY Rx Instructions: PT STATES SHE IS TO TAKE 4 MG QD EXCEPT ON FRIDAYS SHE IS TO TAKE 2 MG. metoprolol tartrate 50 mg tablet 50 mg PO BID Qty: 180 3RF Changed omeprazole 20 mg capsule,delayed release(DR/EC) 40 mg PO DAILY Qty: 30 0RF Discontinued polysaccharide iron complex [Ferrex 150] 150 mg iron capsule 150 mg PO DAILY Referrals / Follow Up: Guille Zarate MD [Primary Care Provider] - Within 2 Weeks FriendJorje DO [Med Staff - Active Staff] - Within 1 Month (For hemorrhoids) Disposition Disposition (needs filled in before D/C Order can be placed): Home, Self Care
[2022-03-01] MEDS: Ascorbic Acid 500 MG Tablet PO (10:10)
[2022-03-01] MEDS: Metoprolol Tartrate 50 MG Tablet 25 MG PO (10:10)
[2022-03-01] MEDS: Pravastatin 40 MG Tablet PO (10:11)
--- NOTE | 2022-03-01 11:03 | DS.PCM_ITS ---
Providers Date of Admission: 02/28/22 Date of Discharge: 03/01/22 Primary Care Physician: Dr. Guille Zarate MD Consultations 02/28/22 17:14 Consult: Gastroenterology Routine Consulting Provider: [facility] Reason for Consult: lower GI Bleed EMERGENT Consult: No MD Notified: Yes Date Notified: 02/28/22 Time Notified: 12:45 Method of Notification: ED Physician Initiated Reason For Visit: GI BLEED, UTI, Diagnosis Discharge Diagnosis (1) Acute lower GI bleeding: Status: Acute Code(s): K92.2 - Gastrointestinal hemorrhage, unspecified Plan This is 70-year-old female is being admitted for acute worsening of chronic lower GI bleed for last 3 years along with increase in fatigue, dyspnea on exertion and generalized weakness. 1.? Acute on recurrent chronic lower GI bleed: Patient is being admitted in PCU.? Most recent BP is low 92/71, heart rate 85.? Patient having 1 unit of PRBC transfusion.? Ringer lactate 1 L ordered.? IV PPI every 12 hourly as patient might have upper GI bleed with rapid transit although less likely. 2.? Chronic severe blood loss anemia: Patient last hemoglobin 13.4 g in March 2016.? In ED, H&H 6.8/21%.? Platelet count normal.? Clear liquid diet.? Try to keep hemoglobin between 8 to 9 g%.? Continue iron when oral is alone along with ascorbic acid. 03/01: Patient had 2 units of PRBC transfusion. Posttransfusion hemoglobin 8.8/27.4%. Patient was seen by GI Dr. Blank. Patient had EGD which shows large hiatus hernia, esophageal plaques consistent with candidiasis biopsied. Patient was prescribed nystatin for 5 weeks as per GI recommendation. Continue PPI for 3.? Idiopathic hypertrophic obstructive subaortic stenosis, MR, paroxysmal A. 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 Nava cardiology visit in about 2018.? She had history of ventricular septal myomectomy in July 2016.? Patient on warfarin, warfarin held.? INR 3.0.? Twelve-lead EKG ordered.? Heart rate is controlled.? Home metoprolol 50 mg decreased to 25 mg twice daily.? Continue pravastatin.? Last echo in our system in May 2018 reported LV size is small with severe LVH, systolic function normal.? EF 70%.? 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 LVOT gradient at rest 74 mmHg with S.A.M.? 03/01: INR is 3.1. Advised to hold warfarin today and resume 3 mg on odd days; , , and Thursday. 2 mg on even days, Thursday, and Thursday. Follow- up INR on Wednesday 03/01: Patient had mild hypophosphatemia prescription for Neutra-Phos given. 4.? Partially treated UTI : UA is positive of nitrite and LE 500, WBC 25 200 cells.? Empirically on IV ceftriaxone and continued. 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 Patient prescribed Bactrim DS 1 tablet twice daily for 3 days. Complete urine culture pending. 4.? Other comorbidities include hypertension, dyslipidemia, history of str daniela/TIA: Home medication reconciliation done. 5.? DVT prophylaxis: Bilateral SCDs.? Pharmacological prophylaxis contraindicated. Living will/advanced directive/end of life care: Patient does not have living will or advanced directive.? After discussion of benefits/risks procedures involved with? full code, DNR CC arrest and DNR CC, the patient and her daughter near the bedside.? They opted for DNRCC arrest with no intubation. Patient? doesn't want artificial life support including intubation, tube feed, ventilator and/chest compression, central venous catheter, vasopressor and DC shock if needed ?? Discharge medication reconciliation done. Discharge follow-up instructions completed. Discharge process discussed with the patient and all questions were answered to patient's satisfaction. Total time spent, exact 35 minutes on discharge meds reconciliation, examination, coordination of care with nurses and ancillary staff, review of imaging and blood test and discussion with the patient on follow-up instructions. Medications at Discharge Home Medications pravastatin 40 mg tablet 40 mg PO DAILY 02/03/13 metoprolol tartrate 50 mg tablet 50 mg PO BID #180 tabs 11/02/18 warfarin 4 mg tablet 4 mg PO DAILY 02/28/22 ascorbic acid (vitamin C) 500 mg tablet 500 mg PO BIDCM 30 days #60 tabs 03/01/22 ferrous sulfate 325 mg (65 mg iron) tablet (FeroSul) 325 mg PO QODAY #30 tabs 03/01/22 nystatin 100,000 unit/mL oral suspension 500,000 unit (5 mL) PO 4X/DAY 35 days #700 mL 03/01/22 omeprazole 20 mg capsule,delayed release 40 mg PO DAILY GERD #30 caps 03/01/22 sennosides 8.6 mg-docusate sodium 50 mg tablet (Stool Softener-Stimulant Laxative) 2 tab PO BID PRN PRN Constipation #0 tabs 03/01/22 sulfamethoxazole 800 mg-trimethoprim 160 mg tablet (Bactrim DS) 1 tab PO BID 3 days #6 tabs 03/01/22 Physical Exam Narrative Seen and examined on the day of discharge. Patient does not want to do colon prep therefore colonoscopy could not be done. Patient wants to go home. Discussed the sitz bath and hemorrhoidal cream. Patient has been on hemorrhoidal cream at home. General: Alert, Oriented x3, Cooperative, looks fatigued HEENT: Atraumatic, PERRLA, EOMI, Normocephalic Oral: Oral mucosa dry.? No Gingival or Mucosal Lesions/ Ulcerations Neck: Supple, No JVD, Negative Carotid Bruits Lungs:? Air entry diminished in bilateral lung bases.? No crepitation/rhonchi Cardiovascular:Midline sternal cardiac surgical scar.? Regular rate, Regular Rh ythm, S1-S2 normal, grade 4/6 systolic murmur over LLSB and cardiac apex. Abdomen: Bowel Sounds Present, Soft, Non Tender, Non-Distended no palpable mass : No renal angle tenderness.? No suprapubic tenderness. Extremities: Mild bilateral pitting ankle edema, Capillary Refill Less than 3 Seconds Skin: No rashes, No breakdown Musculoskeletal: No Tenderness to Palpation of Joints or Extremities.? Bilateral knee and hip joints arthritis. Neurological: Cranial nerves II-XII grossly intact, DTR? 2+/4, no focal acute deficit Psych/Mental Status: normal affect Weight / BMI Weight Weight: 154 lb 1.65 oz Body Mass Index (BMI) 30.6 ABG / Lab / Microbiology Data Result Diagrams: 02/28/22 17:40 02/28/22 09:55 Laboratory: Laboratory Results - last 24 hr 02/28/22 09:55: Blood Type A POSITIVE, Antibody Screen NEGATIVE 02/28/22 09:55: Crossmatch See Detail 02/28/22 09:55: Phosphorus 2.2 L, Magnesium 1.7 02/28/22 11:15: Urine Color Yellow, Urine Clarity Sl. Cloudy, Urine pH 5.0, Ur Specific [place] 1.020, Urine Protein 15 H, Urine Glucose (UA) Normal, Urine Ketones 5 H, Urine Occult Blood 10 H, Urine Nitrite Positive H, Urine Bilirubin 1 H, Urine Urobilinogen 1 H, Ur Leukocyte Esterase 500 H, Urine RBC 0-5 SEEN, Urine WBC 25-50 SEEN, Ur Squamous Epith Cells 5-10 SEEN, Urine Bacteria 2+, Urine Mucus 0 SEEN 02/28/22 17:40: Hgb 8.8 L, Hct 27.4 L Microbiology: Microbiology 02/28/22 11:22 Stool Stool Occult Blood (AGGIE) - Final Occult Blood Positive D/C Instructions Discharge Diet: Light diet - advance as tolerated (Advised soft diet for 5 days and then advance as per tolerated) Weight Bearing Status: Weight bearing as tolerated Call your doctor if you observe: Fever of 101 or Higher, Coldness, Increased Pain, Numbness or Tingling, Change in Color, Inability to urinate, Inability to have a bowel movement, Using more than 1 pad per hour, Shortness of breath, Dizziness, Fainting spells, Swelling in the ankles, Chest pain, Prolonged hiccupping, Increased palpitations (irregular heartbeat) and Calf discomfort When: IN 2 WEEKS Meaningful Use Info Meaningful Use Diagnoses (Choose all that apply): None applicable Discharge Plan Admission Admit Date/Time: 02/28/22 13:32 Primary Reason for Your Visit: Lower GI bleed. Attending Provider: Nicholas Polanco Primary Care Provider: Guille Zarate Instructions Additional Instructions / Restrictions: Follow-up INR in 2 days on 03/03/2022 Advised to hold warfarin today and resume 3 mg on odd days; , , and Thursday. 2 mg on even days, Thursday, and Thursday Discharge Orders/Prescriptions Prescriptions: New nystatin 100,000 unit/mL Suspension 500,000 unit PO 4X/DAY 35 Days Qty: 700 0RF sennosides-docusate sodium [Stool Softener-Stimulant Laxat] 8.6-50 mg Tablet 2 tab PO BID PRN PRN (Reason: Constipation) Qty: 0 0RF ascorbic acid (vitamin C) 500 mg Tablet 500 mg PO BIDCM 30 Days Qty: 60 0RF ferrous sulfate [FeroSul] 325 mg (65 mg iron) tablet 325 mg PO QODAY Qty: 30 1RF sulfamethoxazole-trimethoprim [Bactrim DS] 800-160 mg tablet 1 tab PO BID 3 Days Qty: 6 0RF Continued pravastatin 40 MG tablet 40 mg PO DAILY Label Comments: CHOLESTEROL metoprolol tartrate 50 mg tablet 50 mg PO BID Qty: 180 3RF Changed omeprazole 20 mg capsule,delayed release(DR/EC) 40 mg PO DAILY Qty: 30 0RF Held warfarin 4 mg tablet 4 mg PO DAILY Hold Instructions: Hold warfarin today and resume 3 mg on odd days and 2 mg on even days Rx Instructions: PT STATES SHE IS TO TAKE 4 MG QD EXCEPT ON FRIDAYS SHE IS TO TAKE 2 MG. Discontinued polysaccharide iron complex [Ferrex 150] 150 mg iron capsule 150 mg PO DAILY Referrals / Follow Up: Guille Zarate MD [Primary Care Provider] - Within 2 Weeks Jorje Blank DO [Med Staff - Active Staff] - Within 1 Month (For hemorrhoids) Disposition Disposition (needs filled in before D/C Order can be placed): Home, Self Care Charges/Coding Visit Charges Inpatient E&M: 08835 Disch Hosp >30min
[2022-03-01 11:31] LABS: Absolute Lymphocyte Count 1.29 X10^3/uL (0.83-4.51); Absolute Neutrophil Count 1.9 X10^3/uL (2.0-7.7); Basophil# 0.02 X10^3/uL; Basophil% 0.5 % (0-1); Eosinophil# 0.14 X10^3/uL; Eosinophils% 3.8 % (0-5); Hematocrit 25.4 % (37-47); Hemoglobin 8.2 g/dL (12.0-15.0); Lymphocyte # 1.29 X10^3/ul (0.83-4.51); Lymphocyte % 35.4 % (19-41); Mean Corp Hgb Conc 32.3 g/dL (32-36); Mean Corpuscular Hgb 29.2 pg (27.0-32.0); Mean Corpuscular Volume 90.4 fL (81-99); Mean Platelet Vol. 9.6 fl (6.2-12.0); Monocyte# 0.29 X10^3/uL; NRBC Flagged by Analyzer 0 % (0-5); Neutrophil # 1.89 X10^3/uL (2.7-7.7); Platelet Count 158 K/mm3 (150-450); RBC Distribution Width CV 17.9 % (11.6-14.6); RBC Distribution Width SD 54.6 fl (35.1-43.9); Red Blood Count 2.81 M/mm3 (4.2-5.4); White Blood Count 3.6 K/mm3 (4.4-11.0)
[2022-03-01 11:48] LABS: Prothrombin Time (Protime)PT. 30.8 SECONDS (11.7-14.9)
[2022-03-01 11:55] LABS: Anion Gap 2 (5-15); BUN 11 mg/dL (7-18); BUN/Creat Ratio 18.6 RATIO (10-20); Calcium,Total 8.2 mg/dL (8.5-10.1); Chloride 112 mmol/L (98-107); Creatinine, Serum 0.59 mg/dL (0.55-1.02); EST Glomerular Filtration Rate 106 mL/min (>60); Est Glom Filt Rate - Afr Amer 128 mL/min (>60); Estimated Creatinine Clearance 55.29 ml/min; Glucose 104 mg/dL (74-106); Potassium 4.2 mmol/L (3.5-5.1); Sodium Level 142 mmol/L (136-145)
== END 2022-03-01 12:23 | disposition home or self-care (01) | DRG 378 ==
LOC: ED 10:54 → PCU 14:25
PROVIDERS: Internal Medicine Gastroenterology; Admitting Provider Internal Medicine; Emergency Provider Student in an Organized Health Care Education/Training Program; PCP Family Medicine; Visit Provider Internal Medicine
PROC: 0DJ08ZZ Inspection of Upper Intestinal Tract, Via Natural or Artificial Opening Endoscopic (ICD-10-PCS; CPT 43235; principal; 2022-03-01 08:00)
DX: K62.5 Hemorrhage of anus and rectum (principal); N39.0 Urinary tract infection, site not specified; B37.81 Candidal esophagitis; I42.1 Obstructive hypertrophic cardiomyopathy; D62 Acute posthemorrhagic anemia; I48.0 Paroxysmal atrial fibrillation; E83.39 Other disorders of phosphorus metabolism; E78.5 Hyperlipidemia, unspecified; K44.9 Diaphragmatic hernia without obstruction or gangrene; I10 Essential (primary) hypertension; I44.7 Left bundle-branch block, unspecified; B96.1 Klebsiella pneumoniae [K. pneumoniae] as the cause of diseases classified elsewhere; Z66 Do not resuscitate; Z79.01 Long term (current) use of anticoagulants; Z79.899 Other long term (current) drug therapy; Z86.73 Personal history of transient ischemic attack (TIA), and cerebral infarction without residual deficits; Z87.891 Personal history of nicotine dependence
CPT/HCPCS: 36415; 71045; 80048; 80053; 81001; 82274; 83735; 84100; 84484; 85014; 85018; 85025; 85610; 86850; 86900; 86901; 86920; 86922; 87077; 87086; 87088; 87186; 88305; 88312; 93005; 99252; 99285; J7040; J7050; J7120; P9016; A4216; G0463

== ENCOUNTER 2023-10-23 19:33 | Emergency (ER) | payer MEDICARE, SELFPAY ==
[2023-10-23 19:34] VITALS: BP 134/85; PULSE 97; RESP 18; TEMP 36.3; O2SAT 95; BMI 29.7
--- NOTE | 2023-10-23 20:20 | EKG12_ITS ---
Test Reason : SOB Blood Pressure : / mmHG Vent. Rate : 081 BPM Atrial Rate : 081 BPM P-R Int : 130 ms QRS Dur : 152 ms QT Int : 438 ms P-R-T Axes : 057 009 169 degrees QTc Int : 508 ms Normal sinus rhythm Possible Left atrial enlargement Left bundle branch block Abnormal ECG Confirmed by MAYRA HARDEN, SHIRA ([id number]), graphic editor SIMA PALM ([id number]) on 10/26/2023 6:49:47 AM Referred By: Confirmed By:SHIRA NUNEZ MD
--- NOTE | 2023-10-23 20:21 | EDS_ITS ---
HPI History of Present Illness Chief Complaint: Shortness of Breath Narrative Narrative: 73-year-old female past medical history of hyperlipidemia, atrial fibrillation, presents with shortness of breath for the last 2 weeks. She relates history that she was diagnosed with COVID at the urgent care 2 weeks ago. She is no longer having fever or cough but states she her chest feels tight and it is hard for her to breathe. She also has dyspnea on exertion. She denies any leg swelling. No history of COPD or CHF but she was told that she is being watched for that by her primary care provider. She is a non-smoker. She presents because she has continued shortness of breath even after COVID infection. [facility] Medical History History of CVA (cerebrovascular accident) (2009) Essential (primary) hypertension Left bundle branch block Nonrheumatic tricuspid (valve) insufficiency Secondary pulmonary hypertension History of idiopathic hypertrophic subaortic stenosis History of lower GI bleeding (10/26/15) Paroxysmal atrial fibrillation Nonrheumatic mitral (valve) insufficiency Hypertrophic cardiomyopathy Acute blood loss anemia Troponin I above reference range Aspiration pneumonia Hypotension Bleeding hemorrhoids Hyperlipidemia Tobacco use Vitamin B 12 deficiency Iron deficiency anemia Home Medications ?Medication ?Instructions ?Recorded ?Last Taken ?Type pravastatin 40 mg tablet 40 mg PO DAILY cholesterol 02/03/13 02/27/22 History metoprolol tartrate 50 mg tablet 50 mg PO BID #180 tabs 11/02/18 02/27/22 Rx warfarin 4 mg tablet 4 mg PO DAILY blood thinner 02/28/22 02/27/22 History ascorbic acid (vitamin C) 500 mg 500 mg PO BIDCM 30 days #60 tabs 03/01/22 Unknown Rx tablet ferrous sulfate 325 mg (65 mg 325 mg PO QODAY #30 tabs 03/01/22 Unknown Rx iron) tablet (FeroSul) nystatin 100,000 unit/mL oral 500,000 unit (5 mL) PO 4X/DAY 35 03/01/22 Unknown Rx suspension days #700 mL omeprazole 20 mg capsule,delayed 40 mg (2 x 20 mg) PO DAILY GERD 03/01/22 02/27/22 Rx release #30 caps sennosides 8.6 mg-docusate sodium 2 tab PO BID PRN PRN Constipation 03/01/22 Unknown Rx 50 mg tablet (Stool #0 tabs Softener-Stimulant Laxative) sulfamethoxazole 800 1 tab PO BID 3 days #6 tabs 03/01/22 Unknown Rx mg-trimethoprim 160 mg tablet (Bactrim DS) Allergy/AdvReac Type Severity Reaction Status Date / Time verapamil Allergy Unknown Verified 10/23/23 19:34 Family History Mother Diabetes Heart disease Father Cancer Surgical History History of right and left heart catheterization (04/04/16) 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) Social History Smoking Status: Former smoker quit date: 01/09/17 pack-years: 24 ROS ROS ED ROS Narrative Constitutional: No fever, no chills. HEENT: No sore throat. No neck pain. No loss of vision. No rhinorrhea. Cardiovascular: No chest pain. No palpitations. No pedal edema. Respiratory: No cough, positive dyspnea on exertion and shortness of breath. Mild chest tightness. Abdominal: No abdominal pain. No nausea. No vomiting. Genitourinary: No dysuria. No hematuria. Musculoskeletal: No myalgias. No arthralgias. Neurologic: No headaches. No dizziness. No lightheadedness. Skin: No rash. No change in color. EXAM Physical Exam Narrative Exam Narrative: Afebrile. Vital signs noted. HEENT: Normocephalic. Atraumatic. PERRL, EOMI. Neck soft and supple. No point tenderness or step off. Cardiovascular: Regular rate and rhythm. No murmurs, rubs, or gallops appreciated. Respiratory: No tachypnea. Lungs clear to auscultation bilaterally. Moving a good amount of air. Perhaps slightly prolonged expiratory phase. Speaking in full sentences. Gastrointestinal: Abdomen soft, nontender, with normoactive bowel sounds. No rebound or guarding. Neurological: Awake. Alert. Nonfocal, nonlateralizing. Skin: No rash. Normal color. No pallor. Musculoskeletal: No pedal edema. Full range of motion extremities. Const Vital Signs: 10/23/23 19:34 10/23/23 20:35 Temperature 97.3 F L Temperature Source Temporal Pulse Rate 97 100 Respiratory Rate 18 18 Blood Pressure 134/85 H Blood Pressure Mean 101 Pulse Ox 95 Oxygen Delivery Method Room Air MDM MDM MDM Narrative Medical decision making narrative: Differential diagnosis includes but not limited to COPD versus CHF versus long COVID versus pneumonia versus pneumothorax. I have low suspicion for pneumothorax based on her history and physical examination as she has equal breath sounds. I have low suspicion for pulmonary embolism because not tachycardic or hypoxic. I reviewed her laboratory work and she has normal white count 5.3, hemoglobin stable at 10.4, I do not feel she requires transfusion I do not feel anemia is the cause of her shortness of breath. Platelet count normal at 250. INR is therapeutic at 3.0, hence I doubt pulmonary embolism and do not feel that CTA is indicated. High-sensitivity troponin is 40. EKG obtained interpreted by myself independently as normal sinus rhythm at 81 bpm with left bundle branch block but no acute ST changes. No significant change from EKG dated February 2022. No STEMI. Her BNP is slightly elevated at 636. She was given a dose of Lasix 40 mg here in the emergency department. Chest x-ray in 1 view interpreted by myself shows no evidence of consolidation. I do not feel antibiotics are indicated. No pneumothorax. I reviewed the radiology report which confirms my independent interpretation. She will be ambulated as long as she is not hypoxic I feel she can be discharged to follow-up with her primary care provider. Return instructions to the emergency department were reviewed. Disposition is discharged home in stable condition. History & Record Review Discussion w/independent historian: Patient Lab Data Attestation: I reviewed the patient's lab results. Labs: Laboratory Results - last 24 hr 10/23/23 20:49 WBC 5.3 RBC 3.53 L Hgb 10.4 L Hct 31.9 L MCV 90.4 MCH 29.5 MCHC 32.6 RDW Std Deviation 40.7 RDW Coeff of Aubree 12.6 Plt Count 250 MPV 9.7 Immature Gran % (Auto) 0.400 Neut % (Auto) 53.6 Lymph % (Auto) 31.7 [place] % (Auto) 11.8 H Eos % (Auto) 1.9 Baso % (Auto) 0.6 Absolute Neuts (auto) 2.8 Absolute Lymphs (auto) 1.67 Nucleated RBC % 0 PT 31.0 H INR 3.0 Sodium 144 Potassium 3.4 L Chloride 112 H Carbon Dioxide 27.0 Anion Gap 5 BUN 7 Creatinine 0.71 Estim Creat Clear Calc 52.24 Est GFR (MDRD) Af Amer 104 Est GFR (MDRD) Non-Af 86 BUN/Creatinine Ratio 9.9 L Glucose 117 H Calcium 9.0 Troponin I High Sens 40 B-Natriuretic Peptide 636.4 H Radiography Diagnostic Testing: Clinical Impression(s) from Imaging Studies Chest X-Ray 10/23/23 21:30 IMPRESSION: No acute radiographic abnormalities. Electronically Signed: Marshal Jones MD at 21:54 EDT , Discharge Plan Triage Chief Complaint: Shortness of Breath ED Provider: Pablito Salinas Dx/Rx/DC Orders Clinical Impression: SOB (shortness of breath), Dyspnea, Elevated brain natriuretic peptide (BNP) level Instructions: ED Heart Failure, Congestive (CHF), ED Dyspnea Prescriptions: No Action pravastatin 40 MG tablet 40 mg PO DAILY Patient Comments: CHOLESTEROL warfarin 4 mg tablet 4 mg PO DAILY Rx Instructions: PT STATES SHE IS TO TAKE 4 MG QD EXCEPT ON FRIDAYS SHE IS TO TAKE 2 MG. nystatin 100,000 unit/mL Suspension 500,000 unit PO 4X/DAY 35 Days Qty: 700 0RF sennosides-docusate sodium [Stool Softener-Stimulant Laxat] 8.6-50 mg Tablet 2 tab PO BID PRN PRN (Reason: Constipation) Qty: 0 0RF ascorbic acid (vitamin C) 500 mg Tablet 500 mg PO BIDCM 30 Days Qty: 60 0RF ferrous sulfate [FeroSul] 325 mg (65 mg iron) tablet 325 mg PO QODAY Qty: 30 1RF omeprazole 20 mg capsule,delayed release(DR/EC) 40 mg PO DAILY Qty: 30 0RF sulfamethoxazole-trimethoprim [Bactrim DS] 800-160 mg tablet 1 tab PO BID 3 Days Qty: 6 0RF metoprolol tartrate 50 mg tablet 50 mg PO BID Qty: 180 3RF Primary Care Provider: Guille Zarate Referrals: Guille Zarate MD [Primary Care Provider] - 3-5 Days if not improving Print Language: Algerian Disposition Disposition: Home, Self Care
[2023-10-23] MEDS: Albuterol 2.5 MG/3 ML VIAL.NEB. INHALATION (20:27)
[2023-10-23 20:35] VITALS: PULSE 100; RESP 18
[2023-10-23 21:00] LABS: Absolute Lymphocyte Count 1.67 X10^3/uL (0.83-4.51); Absolute Neutrophil Count 2.8 X10^3/uL (2.0-7.7); Basophil# 0.03 X10^3/uL; Basophil% 0.6 % (0-1); Eosinophils% 1.9 % (0-5); Hematocrit 31.9 % (37-47); Hemoglobin 10.4 g/dL (12.0-15.0); Lymphocyte # 1.67 X10^3/ul (0.83-4.51); Lymphocyte % 31.7 % (19-41); Mean Corp Hgb Conc 32.6 g/dL (32-36); Mean Corpuscular Hgb 29.5 pg (27.0-32.0); Mean Corpuscular Volume 90.4 fL (81-99); Mean Platelet Vol. 9.7 fl (6.2-12.0); Monocyte# 0.62 X10^3/uL; Monocyte% 11.8 % (0-10); NRBC Flagged by Analyzer 0 % (0-5); Neutrophil # 2.83 X10^3/uL (2.7-7.7); Neutrophil % 53.6 % (47-70); Platelet Count 250 K/mm3 (150-450); RBC Distribution Width CV 12.6 % (11.6-14.6); RBC Distribution Width SD 40.7 fl (35.1-43.9); Red Blood Count 3.53 M/mm3 (4.2-5.4); White Blood Count 5.3 K/mm3 (4.4-11.0)
[2023-10-23 21:15] LABS: BNP,B-Type NATRIURETIC PEPTIDE 636.4 pg/mL (0-100)
[2023-10-23 21:18] LABS: Anion Gap 5 (5-15); BUN 7 mg/dL (7-18); BUN/Creat Ratio 9.9 RATIO (10-20); Chloride 112 mmol/L (98-107); Creatinine, Serum 0.71 mg/dL (0.55-1.02); EST Glomerular Filtration Rate 86 mL/min (>60); Est Glom Filt Rate - Afr Amer 104 mL/min (>60); Estimated Creatinine Clearance 52.24 ml/min; Glucose 117 mg/dL (74-106); Potassium 3.4 mmol/L (3.5-5.1); Sodium Level 144 mmol/L (136-145); Troponin-I HS 40 pg/mL (3.0-54.0)
--- NOTE | 2023-10-23 21:30 | RAD_ITS ---
INDICATION: shortness of breath EXAMINATION/TECHNIQUE: X-RAY - XR Chest 1 View COMPARISON: 02/28/2022. FINDINGS: Chronic lung changes. No definite acute lung findings. Sternal cerclage wires and vascular clips are present from a prior sternotomy and coronary artery bypass graft procedure (CABG). The heart is borderline enlarged. Tortuous and calcified thoracic aorta. No pleural effusion or pneumothorax. Degenerative changes of the thoracic spine and shoulders. RAD/Chest 1 View (Portable) IMPRESSION: No acute radiographic abnormalities. Electronically Signed: Marshal Jones MD at 21:54 EDT ,
[2023-10-23 21:34] VITALS: PULSE 79; RESP 20; O2SAT 95
[2023-10-23 21:36] VITALS: O2SAT 100
[2023-10-23 22:00] VITALS: BP 127/63; PULSE 76; RESP 20; TEMP 36.3; O2SAT 95
[2023-10-23] MEDS: Furosemide 40 MG/4 ML Vial IV (22:11)
== END 2023-10-23 22:19 | disposition home or self-care (01) ==
PROVIDERS: Emergency Provider Emergency Medicine; PCP Family Medicine; Visit Provider Emergency Medicine
DX: R06.02 Shortness of breath (principal); I48.0 Paroxysmal atrial fibrillation; R79.0 Abnormal level of blood mineral; I10 Essential (primary) hypertension; E78.5 Hyperlipidemia, unspecified; Z79.01 Long term (current) use of anticoagulants; Z79.899 Other long term (current) drug therapy; Z87.891 Personal history of nicotine dependence
CPT/HCPCS: 71045; 80048; 83880; 84484; 85025; 85610; 93005; 94640; 96374; 99283; J1940

== ENCOUNTER 2023-11-10 14:20 | Inpatient (IN) | payer MEDICARE, SELFPAY ==
[2023-11-10] VITALS (11 sets, daily range): BP systolic 102–137; BP diastolic 39–74; PULSE 76–91; RESP 14–18; TEMP 36.2–37; O2SAT 95–100; BMI 29.2; BMI 29.7
--- NOTE | 2023-11-10 14:31 | EKG12_ITS ---
Test Reason : ABD PAIN Blood Pressure : / mmHG Vent. Rate : 075 BPM Atrial Rate : 075 BPM P-R Int : 144 ms QRS Dur : 160 ms QT Int : 464 ms P-R-T Axes : 052 005 166 degrees QTc Int : 518 ms Normal sinus rhythm Possible Left atrial enlargement Left bundle branch block Abnormal ECG Confirmed by Hua Gilbert ([id number]), food editor KRIS STEWART ([id number]) on 11/11/2023 10:30:08 AM Referred By: Confirmed By:Hua Gilbert
--- NOTE | 2023-11-10 14:32 | CT_ITS ---
STUDY: CT ABDOMEN AND PELVIS WITH CONTRAST REASON FOR EXAM: Female, 73 years old. lower abd pain RADIATION DOSAGE (If Supplied By Facility): CTDIvol = ( 17.48 ) mGy, DLP = ( 739.35 ) mGycm TECHNIQUE: Transaxial images were obtained from the dome of the diaphragm to the symphysis pubis without oral contrast. IV 100mL Isovue-[id number] was administered. Sagittal and coronal images were reconstructed. Individualized dose optimization techniques were used for this CT. COMPARISON: None. FINDINGS: The visualized lung bases are unremarkable. The visualized portions of the heart are within normal limits. Normal liver. Cholelithiasis. Mild prominence of the extrahepatic biliary system. Normal spleen. Normal pancreas. Normal bilateral adrenal glands. Bilateral renal cysts. 4 mm right renal stone. Hiatal hernia. Duodenal diverticulum. Mild diverticulosis of the colon. Wall thickening of the sigmoid colon The appendix is visualized and appears normal. Calcified abdominal aorta. Mild distal aortic dilatation measuring 2.2 cm diameter. Normal inferior vena cava. Normal retroperitoneum. Normal urinary bladder. This is a supportive device in the pelvis. 2.3 x 1.5 cm subcutaneous nodular density at the left labia. Normal abdominal wall. Normal osseous structures. CT/Abdomen/Pelvis W IV Cont ONLY IMPRESSION: Cholelithiasis. Mild prominence of the common bile duct. Bilateral renal cysts. 4 mm nonobstructive right renal stone. Hiatal hernia. Duodenal diverticulum. Mild diverticulosis of the colon. Wall thickening of the sigmoid colon. This may be related to regional form of colitis or diverticulitis. Electronically Signed: Varinder Urias DO at 16:33 EDT ,
--- NOTE | 2023-11-10 14:32 | EDS_ITS ---
HPI History of Present Illness Chief Complaint: Abd Pain Informant: patient and friend Narrative Narrative: Here with multiple complaints. Patient diagnosed with COVID over a month ago September 26, was not hospitalized. Since then noting lower abdominal pain. Ivan tidelmar coyle was in the ER couple weeks ago for heart failure she was given Lasix in the ED per patient. She was told to follow-up with her PCP she followed up and was put on Lasix 3 times a week. She never had leg swelling. History of paroxysmal A-fib on warfarin. Denies chest pains. Denies urinary symptoms. States stool has been darker in color and not black. Nonbloody. States has fever and chills. Has had diverticulitis in the past. [facility] Medical History History of CVA (cerebrovascular accident) (2009) Essential (primary) hypertension Left bundle branch block Nonrheumatic tricuspid (valve) insufficiency Secondary pulmonary hypertension History of idiopathic hypertrophic subaortic stenosis History of lower GI bleeding (10/26/15) Paroxysmal atrial fibrillation Nonrheumatic mitral (valve) insufficiency Hypertrophic cardiomyopathy Acute blood loss anemia Troponin I above reference range Aspiration pneumonia Hypotension Bleeding hemorrhoids Hyperlipidemia Tobacco use Vitamin B 12 deficiency Iron deficiency anemia Home Medications ?Medication ?Instructions ?Recorded ?Last Taken ?Type pravastatin 40 mg tablet 40 mg PO DAILY cholesterol 02/03/13 11/09/23 History metoprolol tartrate 50 mg tablet 50 mg PO BID #180 tabs 11/02/18 11/10/23 Rx warfarin 4 mg tablet 4 mg PO SUTUTH blood thinner 02/28/22 11/08/23 History ferrous sulfate 325 mg (65 mg 325 mg PO QODAY #30 tabs 03/01/22 11/10/23 Rx iron) tablet (FeroSul) furosemide 20 mg tablet 20 mg PO DAILY 11/10/23 11/08/23 History warfarin 3 mg tablet 3 mg PO MOWEFRSA 11/10/23 11/09/23 History Allergy/AdvReac Type Severity Reaction Status Date / Time verapamil Allergy Unknown Verified 11/10/23 14:21 Family History Mother Diabetes Heart disease Father Cancer Surgical History History of right and left heart catheterization (04/04/16) 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) Social History (Updated 11/10/23 @ 18:56 by Shantelle Jacques) housing: house Smoking Status: Former smoker quit date: 01/09/17 pack-years: 24 ROS ROS ED Constitutional Constitutional ED: Reports chills and fever(s); Denies sweats Eyes Eyes: Denies change in vision ENT ENT ED: Denies dysphagia or sore throat Cardiovascular Cardiovascular: Denies chest pain, leg edema, palpitations or racing heartbeat Respiratory/Chest Respiratory/Chest: Reports dyspnea; Denies cough or dyspnea on exertion Gastrointestinal Gastrointestinal: Reports abdominal pain; Denies diarrhea, nausea or vomiting Genitourinary Genitourinary ED: Denies dysuria, hematuria or urinary frequency Musculoskeletal Musculoskeletal: Denies back pain, extremity pain or neck pain Integumentary Denies rash or wounds Neurologic Neurologic: Denies headache(s), paresthesias or weakness EXAM Physical Exam Const Vital Signs: 11/10/23 14:21 11/10/23 16:20 11/10/23 17:17 Temperature 97.9 F 98.6 F Temperature Source Oral Pulse Rate 80 78 76 Respiratory Rate 18 16 15 Blood Pressure 123/53 H 134/74 H 137/66 H Blood Pressure Mean 76 94 89 Pulse Ox 100 97 95 Oxygen Delivery Method Room Air Room Air 11/10/23 17:21 Temperature 98.6 F Temperature Source Oral Pulse Rate 76 Respiratory Rate 15 Blood Pressure 129/58 H Blood Pressure Mean 81 Pulse Ox 95 Oxygen Delivery Method Room Air Positive well nourished and well developed General Appearance ED: well developed and NAD HEENT Reports moist mucous membranes normocephalic and atraumatic Eyes EOMs intact bilaterally and conjunctivae normal General Eye ED: Yes normal appearance of both eyes Neck no lymphadenopathy and supple General: Negative for tenderness Chest Wall Chest: Negative for tenderness Resp normal respiratory effort and normal air movement Effort and Inspection: symmetric chest movement; Negative for respiratory distress Cardio regular rate, regular rhythm and no murmurs Peripheral Pulses: pulses 2+ throughout GI normal to inspection, nondistended, normoactive bowel sounds GI Narrative: Lower abdominal tenderness suprapubic region, no guarding or rebound. Palpation: Negative for guarding or rebound tenderness present Back/Spine no CVA tenderness and no thoracic nor lumbar tenderness Extremity normal to inspection General Extremety ED: Negative for edema or tenderness General Extremity: Negative for edema Neuro oriented x3 and no sensory deficits noted Sensorium / Orientation: awake and alert Skin no rashes or lesions noted and no wounds MDM MDM MDM Narrative Medical decision making narrative: Interventions / MDM: Differential diagnosis: Diagnosis considered but do not suspect: N/A My EKG interpretation: Sinus rate of 75, no ST changes T wave inversion lateral leads with left bundle branch block similar to earlier this month on the 6. Imaging independently reviewed and interpreted by myself: 2 view chest x-ray: No acute process. CT abdomen pelvis IV contrast: Sigmoid wall thickening, cholelithiasis External documents reviewed: N/A Test considered but not ordered:N/A ED course: Patient multiple complaints reports continued dyspnea with CHF history. Reports lower abdominal pain for over a month. EKG chronic left bundle branch block and T wave version. Chest x-ray ordered along with CT scan abdomen for further evaluation. Labs and urine ordered. 1605: Hemoglobin 8.2 down from 10.4 little over 2 weeks ago. Prior that ranges are in the 8. I went back discussed patient for rectal exam for Hemoccult however she declines. She states she will try to give stool sample. Her two- view chest x-ray negative. Urine notes leukocytes and bacteria along with squamous cells. She was denying any urinary symptoms urine culture sent. BNP 373. Troponin 25 normal range. INR therapeutic at 2.7. CT scan with sigmoid wall thickening. Pain in the region. Concerning for diverticulitis. Discussed findings with the patient. She is covered with Flagyl and Rocephin IV. She is on warfarin with drop in hemoglobin. Discussed with hospitalist Dr. Philippe for admission. Of note she evaluate the patient in the ED during evaluation she noted nonsustained V. tach. Patient placed in PCU observations. Re-evaluation: stable Disposition discussed with patient/family/significant other: Patient and family Case discussed with consulting clinician: Hospitalist This note was generated with [employer] dictation software. It may contain incorrect words, spelling, and punctuation that were not noted in checking the note before signing. Lab Data Attestation: I reviewed the patient's lab results. Labs: Laboratory Results - last 24 hr 11/10/23 11/10/23 14:52 15:16 WBC 6.0 RBC 2.87 L Hgb 8.2 L Hct 26.5 L MCV 92.3 MCH 28.6 MCHC 30.9 L RDW Std Deviation 46.4 H RDW Coeff of Aubree 13.9 Plt Count 278 MPV 9.7 Immature Gran % (Auto) 0.500 Neut % (Auto) 73.5 H Lymph % (Auto) 21.1 [place] % (Auto) 3.8 Eos % (Auto) 0.3 Baso % (Auto) 0.8 Absolute Neuts (auto) 4.4 Absolute Lymphs (auto) 1.26 Nucleated RBC % 0 PT 28.2 H INR 2.7 APTT 32.3 Sodium 139 Potassium 4.5 Chloride 107 Carbon Dioxide 25.0 Anion Gap 7 BUN 26 H Creatinine 1.12 H Estim Creat Clear Calc 36.73 Est GFR (MDRD) Af Amer 61 Est GFR (MDRD) Non-Af 50 L BUN/Creatinine Ratio 23.2 H Glucose 162 H Calcium 9.2 Phosphorus 3.2 Magnesium 2.0 Iron 45 L TIBC 421 Iron Saturation 10.7 L Ferritin 59 Troponin I High Sens 25 B-Natriuretic Peptide 373.9 H TSH 1.920 Urine Color Yellow Urine Clarity Cloudy Urine pH 6.0 Ur Specific [place] 1.025 Urine Protein 30 H Urine Glucose (UA) Normal Urine Ketones 5 H Urine Occult Blood 50 H Urine Nitrite Negative Urine Bilirubin 1 H Urine Urobilinogen 1 H Ur Leukocyte Esterase 500 H Urine RBC 0-5 SEEN Urine WBC 10-25 SEEN Ur Squamous Epith Cells 10-25 SEEN Ur Renal Epithelial Cell 0-5 SEEN Urine Bacteria 3+ Hyaline Casts 0-5 SEEN Urine Mucus 0 SEEN Radiography Diagnostic Testing: Clinical Impression(s) from Imaging Studies Abdomen/Pelvis CT 11/10/23 14:32 IMPRESSION: Cholelithiasis. Mild prominence of the common bile duct. Bilateral renal cysts. 4 mm nonobstructive right renal stone. Hiatal hernia. Duodenal diverticulum. Mild diverticulosis of the colon. Wall thickening of the sigmoid colon. This may be related to regional form of colitis or diverticulitis. Electronically Signed: Varinder Urias DO at 16:33 EDT Reading Location ID and State: [facility] / [place] Tel [phone], Service support , Chest X-Ray 11/10/23 15:45 IMPRESSION: No radiographic evidence of acute cardiopulmonary disease. Electronically Signed: Varinder Urias DO at 16:48 EDT Reading Location ID and State: [facility] / [place] Tel [phone], Service support , Discharge Plan Dx/Rx/DC Orders Clinical Impression: retirement current use of anticoagulant, Paroxysmal atrial fibrillation, Diverticulitis of sigmoid colon, Anemia, Cholelithiasis Disposition Disposition: Acute Care Hospital [facility] Discharge Date/Time: 11/10/23 18:42
[2023-11-10] MEDS: 0.9% Normal Saline (500mL Bag) 500 ML 1000 ML IV (14:50)
[2023-11-10 14:58] LABS: Absolute Lymphocyte Count 1.26 X10^3/uL (0.83-4.51); Absolute Neutrophil Count 4.4 X10^3/uL (2.0-7.7); Basophil# 0.05 X10^3/uL; Basophil% 0.8 % (0-1); Eosinophil# 0.02 X10^3/uL; Eosinophils% 0.3 % (0-5); Hematocrit 26.5 % (37-47); Hemoglobin 8.2 g/dL (12.0-15.0); Lymphocyte # 1.26 X10^3/ul (0.83-4.51); Lymphocyte % 21.1 % (19-41); Mean Corp Hgb Conc 30.9 g/dL (32-36); Mean Corpuscular Hgb 28.6 pg (27.0-32.0); Mean Corpuscular Volume 92.3 fL (81-99); Mean Platelet Vol. 9.7 fl (6.2-12.0); Monocyte# 0.23 X10^3/uL; Monocyte% 3.8 % (0-10); NRBC Flagged by Analyzer 0 % (0-5); Neutrophil # 4.39 X10^3/uL (2.7-7.7); Neutrophil % 73.5 % (47-70); Platelet Count 278 K/mm3 (150-450); RBC Distribution Width CV 13.9 % (11.6-14.6); RBC Distribution Width SD 46.4 fl (35.1-43.9); Red Blood Count 2.87 M/mm3 (4.2-5.4)
[2023-11-10 15:11] LABS: International Normalized Ratio 2.7; Prothrombin Time (Protime)PT. 28.2 SECONDS (11.7-14.9)
[2023-11-10 15:12] LABS: Partial Thromboplast Time 32.3 Seconds (24.1-36.2)
[2023-11-10 15:22] LABS: Anion Gap 7 (5-15); BUN 26 mg/dL (7-18); BUN/Creat Ratio 23.2 RATIO (10-20); Calcium,Total 9.2 mg/dL (8.5-10.1); Chloride 107 mmol/L (98-107); Creatinine, Serum 1.12 mg/dL (0.55-1.02); EST Glomerular Filtration Rate 50 mL/min (>60); Est Glom Filt Rate - Afr Amer 61 mL/min (>60); Estimated Creatinine Clearance 36.73 ml/min; Glucose 162 mg/dL (74-106); Potassium 4.5 mmol/L (3.5-5.1); Sodium Level 139 mmol/L (136-145); Troponin-I HS 25 pg/mL (3.0-54.0)
[2023-11-10 15:25] LABS: Mucous, Urine 0 SEEN /hpf (<or=2+)
[2023-11-10 15:30] LABS: Color, Urine Yellow (Yellow); Glucose, Dipstick Normal (Normal); Ketone-Dipstick 5 mg/dl (Negative); Leukocyte Esterase-Dipstick 500 /ul (Negative); Nitrite-Dipstick Negative (Negative); Occult Blood-Urine 50 /ul (Negative); Protein-Dipstick 30 mg/dl (Negative); Specific Gravity, Urine 1.025 (1.002-1.030); Urine Clarity Cloudy (Clear); Urine Urobilinogen 1 mg/dl (Normal)
[2023-11-10 15:30] LABS: BNP,B-Type NATRIURETIC PEPTIDE 373.9 pg/mL (0-100)
[2023-11-10 15:31] LABS: Urine Bilirubin Dipstick 1 mg/dL (Negative)
--- NOTE | 2023-11-10 15:45 | RAD_ITS ---
INDICATION: sob EXAMINATION/TECHNIQUE: X-RAY - XR Chest 2 Views COMPARISON: October 23, 2023 FINDINGS: LINES/DEVICES: Stable sternotomy wires. LUNGS: No consolidation, edema or effusion. No pneumothorax. MEDIASTINUM AND CARDIOVASCULAR STRUCTURES: Cardiac silhouette not enlarged. Central airways and mediastinal contour are unremarkable. BONES AND SOFT TISSUES: Unremarkable. RAD/Chest PA and Lateral IMPRESSION: No radiographic evidence of acute cardiopulmonary disease. Electronically Signed: Varinder Urias DO at 16:48 EDT ,
[2023-11-10 15:52] LABS: Bacteria 3+ /hpf (None Seen); Red Blood Cells-Urine 0-5 SEEN /hpf (0-5); Renal Epithelial Cells 0-5 SEEN /hpf (0-5); Squamous Epithelial Cells - UA 10-25 SEEN /hpf (5-10); White Blood Cells 10-25 SEEN /hpf (0-5)
[2023-11-10 15:53] LABS: Hyaline Cast 0-5 SEEN /lpf (0-5)
[2023-11-10] MEDS: Ceftriaxone 1 GM/50 ML BAG IV (17:17)
[2023-11-10] MEDS: metroNIDAZOLE 500 MG/100 ML BAG 100 MG IV ×2 (17:45→23:41)
--- NOTE | 2023-11-10 17:57 | HP.PCM.HOS_ITS ---
HPI - General General Date of Admission: 11/10/23 Date of Service: 11/10/23 Chief Complaint: Lightheaded, dizziness, intermittent abx pain HPI Narrative RICHARD ROSA, is a 73-year-old female history of paroxysmal atrial fibrillation on Coumadin, GERD, CVA who presented to [facility] ED 11/06/2023 with various complaints. Her main complaints are intermittent lower abdominal pain and cramping for the past couple of months as well as weakness and fatigue. In the ED CT concerning for diverticulitis and hemoglobin 8.2 and earlier this month was 10.4. Patient refused rectal exam in ED so was on clear if stool occult positive, was agreeable to give stool sample once able. Hospitalist contacted for admission due to patient's low hemoglobin given she is on Coumadin and is therapeutic on warfarin. Hospitalist evaluated bedside. Patient endorses that she has been feeling generally unwell for the past couple of months especially since she had COVID and has been having a lot of weakness and dizzy/lightheaded spells that are sometimes associated with standing or sometimes with bending and sometimes she does not have a noted trigger. She also complains of some lower abdominal pain that has been coming and going over the past couple of months as well without diarrhea, little bit of nausea earlier today but no significant nausea before or since. Has been having dark stools for a few weeks and reports she chronically will get some blood in stool due to hemorrhoids so she tries to make sure she does not stay constipated. Was started on iron but was unsure if dark stools started before that or not. No chest pain, has some chronic shortness of breath which is not necessarily changed. Discussed with patient about admission versus discharge home with PCP follow-up and given patient's lightheadedness and weakness she was concerned about going home. She then had 14 beats of V. tach during her evaluation, was not symptomatic at the time but also feel it is reasonable to work this up given her lightheaded and dizziness. [facility] Medical History History of CVA (cerebrovascular accident) (2009) Essential (primary) hypertension Left bundle branch block Nonrheumatic tricuspid (valve) insufficiency Secondary pulmonary hypertension History of idiopathic hypertrophic subaortic stenosis History of lower GI bleeding (10/26/15) Paroxysmal atrial fibrillation Nonrheumatic mitral (valve) insufficiency Hypertrophic cardiomyopathy Acute blood loss anemia Troponin I above reference range Aspiration pneumonia Hypotension Bleeding hemorrhoids Hyperlipidemia Tobacco use Vitamin B 12 deficiency Iron deficiency anemia Home Medications ?Medication ?Instructions ?Recorded ?Last Taken ?Type pravastatin 40 mg tablet 40 mg PO DAILY cholesterol 02/03/13 11/09/23 History metoprolol tartrate 50 mg tablet 50 mg PO BID #180 tabs 11/02/18 11/10/23 Rx warfarin 4 mg tablet 4 mg PO SUTUTH blood thinner 02/28/22 11/08/23 History ferrous sulfate 325 mg (65 mg 325 mg PO QODAY #30 tabs 03/01/22 11/10/23 Rx iron) tablet (FeroSul) furosemide 20 mg tablet 20 mg PO DAILY 11/10/23 11/08/23 History warfarin 3 mg tablet 3 mg PO MOWEFRSA 11/10/23 11/09/23 History Allergy/AdvReac Type Severity Reaction Status Date / Time verapamil Allergy Unknown Verified 11/10/23 14:21 Family History Mother Diabetes Heart disease Father Cancer Surgical History History of right and left heart catheterization (04/04/16) 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) Social History (Updated 11/10/23 @ 18:56 by Shantelle Jacques) housing: [place] Smoking Status: Former smoker quit date: 01/09/17 pack-years: 24 ROS ROS Narrative General: Sometimes will feel cold sometimes sweaty but has not had measured temperature HENT: Gets a little bit of headache intermittently EYES: Denies changes in vision Resp: Has had some chronic shortness of breath Cardiac: Denies chest pain GI: Some nausea earlier today but overall not a significant concern for her, lower abdominal pain intermittently, has had some dark stools but not diarrhea : Denies changes in urination Extremity: Denies swelling MSK: Generalized weakness Neuro: Feels she has some chronic numbness and tingling in feet Heme: Easy bruising Skin: Denies rashes Psychiatric: Frustrated that she has been feeling unwell for so long Vital Signs Vital Signs Vital Signs: 11/10/23 14:21 11/10/23 16:20 11/10/23 17:17 Temperature 97.9 F 98.6 F Temperature Source Oral Pulse Rate 80 78 76 Respiratory Rate 18 16 15 Blood Pressure 123/53 H 134/74 H 137/66 H Blood Pressure Mean 76 94 89 Pulse Ox 100 97 95 Oxygen Delivery Method Room Air Room Air 11/10/23 17:21 Temperature 98.6 F Temperature Source Oral Pulse Rate 76 Respiratory Rate 15 Blood Pressure 129/58 H Blood Pressure Mean 81 Pulse Ox 95 Oxygen Delivery Method Room Air Weight Weight: 65.771 kg Body Mass Index (BMI) 29.2 Physical Exam Narrative General: Alert, oriented, no apparent distress HEENT: Atraumatic, normocephalic Eyes: Anicteric, normal conjunctiva, extraocular movements grossly intact Neck: Supple Respiratory: Somewhat diminished at the bases, normal respiratory effort Cardiovascular: Regular rate and rhythm, had systolic ejection murmur GI: Soft, not significantly tender, nondistended, no rebound, guarding, rigidity Extremities: No edema Musculoskeletal: Moving all extremities Neuro: No overt focal neurological deficits Skin: No rashes appreciated Psych: Cooperative Results Lab / Micro Data 11/10/23 14:52 11/10/23 14:52 Labs: Laboratory Results - last 24 hr 11/10/23 14:52: WBC 6.0, RBC 2.87 L, Hgb 8.2 L, Hct 26.5 L, MCV 92.3, MCH 28.6, MCHC 30.9 L, RDW Std Deviation 46.4 H, RDW Coeff of Aubree 13.9, Plt Count 278, MPV 9.7, Immature Gran % (Auto) 0.500, Neut % (Auto) 73.5 H, Lymph % (Auto) 21.1, [place] % (Auto) 3.8, Eos % (Auto) 0.3, Baso % (Auto) 0.8, Absolute Neuts (auto) 4.4, Absolute Lymphs (auto) 1.26, Nucleated RBC % 0, PT 28.2 H, INR 2.7, APTT 32.3, Sodium 139, Potassium 4.5, Chloride 107, Carbon Dioxide 25.0, Anion Gap 7, BUN 26 H, Creatinine 1.12 H, Estim Creat Clear Calc 36.73, Est GFR (MDRD) Af Amer 61, Est GFR (MDRD) Non-Af 50 L, BUN/Creatinine Ratio 23.2 H, Glucose 162 H, Calcium 9.2, Troponin I High Sens 25, B-Natriuretic Peptide 373.9 H 11/10/23 15:16: Urine Color Yellow, Urine Clarity Cloudy, Urine pH 6.0, Ur Specific [place] 1.025, Urine Protein 30 H, Urine Glucose (UA) Normal, Urine Ketones 5 H, Urine Occult Blood 50 H, Urine Nitrite Negative, Urine Bilirubin 1 H, Urine Urobilinogen 1 H, Ur Leukocyte Esterase 500 H, Urine RBC 0-5 SEEN, Urine WBC 10-25 SEEN, Ur Squamous Epith Cells 10-25 SEEN, Ur Renal Epithelial Cell 0-5 SEEN, Urine Bacteria 3+, Hyaline Casts 0-5 SEEN, Urine Mucus 0 SEEN Imaging Radiology Impression Abdomen/Pelvis CT 11/10/23 14:32 IMPRESSION: Cholelithiasis. Mild prominence of the common bile duct. Bilateral renal cysts. 4 mm nonobstructive right renal stone. Hiatal hernia. Duodenal diverticulum. Mild diverticulosis of the colon. Wall thickening of the sigmoid colon. This may be related to regional form of colitis or diverticulitis. Electronically Signed: Varinder Urias DO at 16:33 EDT , Chest X-Ray 11/10/23 15:45 IMPRESSION: No radiographic evidence of acute cardiopulmonary disease. Electronically Signed: Varinder Urias DO at 16:48 EDT , Assessment & Plan Assessment/Plan (1) Light headedness: PLAN: Plan #Episodes of light headed and dizziness -Have been present over the past couple of months and often times her with standing up or bending over but sometimes unclear trigger -Orthostats were negative however blood pressure when standing was 102/71 and patient did have what sounded to be an aortic stenosis murmur on auscultation of chest -If BP on the low end of normal and patient has valvular abnormality this is potentially the cause but cannot say definitively -Will obtain echocardiogram -Hold Lasix and decrease metoprolol, patient received gentle IV fluids in the ED -Monitoring on telemetry as cannot rule out arrhythmia especially given nonsustained V. tach in ED #FRANCES -Patient with creatinine of 1.12 and BUN of 26 -Creatinine 0.71 earlier this month and is up from baseline -Received gentle IV fluids -Repeat in the a.m. -Hold Lasix #Anemia -Hemoglobin 8.2, was 10.4 earlier this month and previously has been variable usually in the 8 range -Patient does note darker stools with unclear correlation with iron -Had upper endoscopy with Dr. Blank 03/01/2022 with esophageal plaques and hiatal hernia and she reports she has previously had colonoscopies with Dr. James which has seen diverticular disease and hemorrhoids -Given patient's have an lightheadedness and fatigue cannot rule out that this is not symptomatic anemia -No brisk or overt bleeding so will hold Coumadin today but do not think it needs reversed -Fecal occult ordered and pending -Recheck hemoglobin in the a.m., if stable can likely have further outpatient workup versus inpatient evaluation #NSVT -1 episode in ED of 14 beats and patient was asymptomatic at the time -Continue metoprolol but at lower dose as above -Monitoring on telemetry -Patient's mag, Phos, potassium within normal limits -Will check echo in the a.m. #Generalized weakness -Anemia versus dehydration versus cardiac other etiology -Workup as above -PT #pafib -Continue BB -Holding coumadin today while awaiting fobt and AM cbc -Do not feel patient needs this reversed urgently as no brisk bleeding noted #Diverticulitis -Mild diverticulitis seen on CT scan -Continue Cipro and Flagyl -Not nauseous or having significant pain so feel it is reasonable for patient to eat -Gentle IV fluids as above #DVT ppx: Therapeutic on Coumadin Chani Philippe MD Time spent in the patient's overall evaluation,decision-making process, review of diagnostic data, adjustment of management, discussion with other providers, nursing nursing and ancillary staff involved in patient's care documentation, 59 Minutes Charges/Coding Visit Charges Inpatient E&M: 70496 Init Hosp L2
--- NOTE | 2023-11-10 18:05 | ECHOLC_ITS ---
Version 2 Reason For Study: DYSPNEA Procedure This was a limited 2D transthoracic echocardiogram. The study was technically difficult. Contrast injection was performed. Exam performed portable in patient room. Left Ventricle Normal LV size. Severe eccentric left ventricular hypertrophy. Left ventricular systolic function is normal. The left ventricular ejection fraction is 65 %. Mid cavitary dynamic gradient 144 mm/Hg. LVOT dynamic gradient 156 m/sec. [place]cer : Hypokinetic. Right Ventricle Normal RV size. Normal systolic function. Atria Normal left atrium. Normal right atrium. Mitral Valve Normal mitral valve. Systolic anterior motion of the mitral valve. Mild-Moderate (1-2+) eccentric mitral valve insufficiency. Tricuspid Valve Normal tricuspid valve. Mild tricuspid valve insufficiency. Aortic Valve Trisinus/trileaflet aortic valve. Pulmonic Valve Normal pulmonic valve. Great Vessels Normal aortic root. The pulmonary artery is normal size. Inferior vena cava collapse with respiration. Pericardium/Pleural No pericardial effusion. Medication Diluted definity 2ml given slow IV push to enhance endocardial definition. MMode/2D Measurements & Calculations LVIDd: 4.1 cm IVSd: 2.8 cm LAV(MOD-bp): 62.8 ml LVIDs: 2.1 cm LVPWd: 1.4 cm RVDd: 3.0 cm FS: 49.9 % LAV(MOD-bp) Indexed: 39.0 ml/m2 LAV(MOD-sp2): 60.0 ml LAV(MOD-sp4): 58.6 ml SV(MOD-sp4): 82.5 ml LVAd ap4: 37.6 cm2 LVAd ap2: 32.8 cm2 LVLd ap4: 8.3 cm LVLd ap2: 9.0 cm EDV(MOD-sp4): 133.5 ml EDV(MOD-sp2): 96.6 ml EDV(sp4-el): 144.0 ml EDV(sp2-el): 101.8 ml LVAs ap4: 21.5 cm2 LVAs ap2: 19.9 cm2 LVLs ap4: 7.4 cm LVLs ap2: 8.0 cm ESV(MOD-sp4): 50.9 ml ESV(MOD-sp2): 41.6 ml ESV(sp4-el): 53.2 ml ESV(sp2-el): 42.2 ml EF(MOD-sp4): 61.8 % EF(MOD-sp2): 56.9 % EF(sp4-el): 63.0 % SV(MOD-sp2): 55.0 ml SV(sp4-el): 90.8 ml Ao sinus diam: 3.0 cm LA A4 area: 20.9 cm2 LA dimension(2D): 4.6 cm RA A4 area: 13.2 cm2 Doppler Measurements & Calculations Ao V2 max: 226.2 cm/sec TR max cesar: 194.9 cm/sec Ao max P.5 mmHg TR max P.2 mmHg Ao V2 mean: 151.8 cm/sec Ao mean P.6 mmHg Ao V2 VTI: 37.7 cm ECHO/Echo Limited w/Contrast Interpretation Summary Normal LV size. Left ventricular systolic function is normal. The left ventricular ejection fraction is 65 %. Severe eccentric left ventricular hypertrophy. Mid cavitary dynamic gradient 144 mm/Hg. Systolic anterior motion of the mitral valve. LVOT dynamic gradient 156 m/sec. Apical hypokinesis Contrast injection was performed. Ordering Physician: Chani Philippe Referring Physician: MD Elliot Guille Performed By: Edith Lynn RDCS
--- NOTE | 2023-11-10 19:00 | NURSING ---
Emergency documentation in effect 11/10/2023, @[id number]
[2023-11-10 20:30] LABS: Ferritin 59 ng/mL (8-252); Iron 45 ug/dL (50-170); Iron Binding Capacity,Total 421 ug/dL (250-450); PERCENT IRON SATURATION 10.7 % (15.0-55.0); Phosphorus 3.2 mg/dL (2.5-4.9)
[2023-11-10 20:52] LABS: Vitamin B12 334 pg/mL (211-911)
[2023-11-10] MEDS: 0.9% Normal Saline (1000mL) 1,000 ML 50 ML IV (22:09)
[2023-11-10] MEDS: 0.9% Saline Lock 10 ML Syringe IV (22:11)
[2023-11-10] MEDS: Ciprofloxacin 400 MG/200 ML BAG 200 MG IV (22:25)
[2023-11-10] MEDS: Pravastatin 40 MG Tablet PO (22:27)
[2023-11-10] MEDS: Metoprolol Tartrate 25 MG Tablet 12.5 MG PO (22:27)
[2023-11-10] MEDS: Calcium Carbonate 500 MG Tablet 1000 MG PO (22:56)
[2023-11-11] VITALS (16 sets, daily range): BP systolic 95–154; BP diastolic 55–105; PULSE 74–97; RESP 16–19; TEMP 36–37.1; O2SAT 95–100
[2023-11-11] MEDS: metroNIDAZOLE 500 MG/100 ML BAG 100 MG IV ×3 (05:48→22:06)
[2023-11-11 07:35] LABS: ALB/GLOB Ratio 0.9 RATIO (0.9-2.4); AST(SGOT) 21 U/L (15-37); Alanine Aminotransfer ALT/SGPT 16 U/L (13-56); Albumin, Serum 2.7 g/dL (3.2-5.0); Alkaline Phosphatase 42 U/L (45-117); Anion Gap 4 (5-15); BUN 18 mg/dL (7-18); BUN/Creat Ratio 26.3 RATIO (10-20); Calcium,Total 8.6 mg/dL (8.5-10.1); Chloride 113 mmol/L (98-107); Creatinine, Serum 0.68 mg/dL (0.55-1.02); EST Glomerular Filtration Rate 89 mL/min (>60); Est Glom Filt Rate - Afr Amer 107 mL/min (>60); Estimated Creatinine Clearance 51.85 ml/min; Glucose 119 mg/dL (74-106); Potassium 3.6 mmol/L (3.5-5.1); Protein, Total 5.7 g/dL (6.4-8.2); Sodium Level 141 mmol/L (136-145)
[2023-11-11 07:40] LABS: International Normalized Ratio 2.8
[2023-11-11 08:19] LABS: Absolute Lymphocyte Count 1.91 X10^3/uL (0.83-4.51); Absolute Neutrophil Count 2.3 X10^3/uL (2.0-7.7); Basophil# 0.04 X10^3/uL; Basophil% 0.8 % (0-1); Eosinophil# 0.17 X10^3/uL; Eosinophils% 3.5 % (0-5); Hematocrit 21.5 % (37-47); Hemoglobin 6.5 g/dL (12.0-15.0); Lymphocyte # 1.91 X10^3/ul (0.83-4.51); Lymphocyte % 38.8 % (19-41); Mean Corp Hgb Conc 30.2 g/dL (32-36); Mean Corpuscular Hgb 28.6 pg (27.0-32.0); Mean Corpuscular Volume 94.7 fL (81-99); Mean Platelet Vol. 10.4 fl (6.2-12.0); Monocyte# 0.49 X10^3/uL; NRBC Flagged by Analyzer 0 % (0-5); Neutrophil # 2.29 X10^3/uL (2.7-7.7); Neutrophil % 46.5 % (47-70); Platelet Count 214 K/mm3 (150-450); RBC Distribution Width CV 14.2 % (11.6-14.6); RBC Distribution Width SD 48.1 fl (35.1-43.9); Red Blood Count 2.27 M/mm3 (4.2-5.4); White Blood Count 4.9 K/mm3 (4.4-11.0)
--- NOTE | 2023-11-11 08:34 | CON.PCM.CA_ITS ---
Assessment & Plan Assessment/Plan (1) Hypertrophic cardiomyopathy: PLAN: Patient carries a history of hypertrophic obstructive cardiomyopathy status post myectomy in 2017. This was done at hospital. In 2018 and 2018 she had repeat echocardiograms that were very similar showing a persistent left ventricular outflow tract gradient of 74 mmHg 3+ mitral regurgitation related to systolic anterior motion of mitral valve. 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 She is also noting some near syncope with activities as well as occasionally at rest. The patient is not aware when she is in atrial fibrillation or having arrhythmias other than the potential of that is causing this lightheadedness. Currently the patient is severely anemic with a hemoglobin of 6.5 on today's assessment. Medications will be adjusted as noted below. 2D echocardiogram is pending at this time I expect the gradients to be elevated given her anemia. We will adjust her medications and transfuse to at least a hemoglobin of 8.0. (2) History of ventricular septal myectomy: PLAN: Dr. Graves at performed the procedure in 2017. (3) Paroxysmal atrial fibrillation: PLAN: Patient has a history of short runs of paroxysmal atrial fibrillation on an 30-day event recorder back in 2018. As best I can ascertain she has been on warfarin since that point in time. Warfarin will have to be discontinued and held for the time being given her blood loss. She did have a history of a GI bleed in February 2023 this would be a second bleed. She has not been taking her iron replacement due to constipation. (4) Left bundle branch block: PLAN: Patient has a chronic left bundle branch block related to her hypertrophic obstructive cardiomyopathy. She did have a right and left heart catheterization back in 2016 the patient had minimal coronary artery disease at that point in time and normal pulmonary artery pressures. (5) Essential (primary) hypertension: PLAN: Blood pressure is well-controlled on her beta-heriberto therapy. (6) Iron deficiency anemia: QUALIFIERS: Iron deficiency anemia type: chronic blood loss Q ualified Code(s): D50.0 - Iron deficiency anemia secondary to blood loss (chronic) PLAN: Patient is hemoglobin is down down to 6.5. She is being evaluated by the primary service and will be transfused with hemoglobin of at least 8. PLAN: Plan 1. DC warfarin and furosemide. 2. Would like to add Calan to her medical regiment for negative inotropic effect, however the patient is an intolerance to verapamil in the past. Therefore we will increase metoprolol to 25 mg 3 times daily with hold parameters. 3. Perform 2D echocardiogram. Would prefer to wait until after transfused when hemoglobin above 8. 4. The patient adamantly refuses any future surgical interventions. 5. After the patient's medications are titrated to blood pressure and heart rate response would recommend 30-day event recorder to be repeated to correlate her lightheaded spells with any significant ectopy. 6. The patient should probably be considered for EP evaluation at some point in time if there is a correlation of her ectopy with her symptoms and her hemoglobin is replaced. HPI Consult Data Date of Consult: 11/11/23 HPI Narrative Reason for Consultation: 14 beat run of V. tach. HPI Narrative: RICHARD ROSA, is a 73 F who presents history of hypertrophic obstructive cardiomyopathy. She is status post myomectomy around 2017 at [facility]. She had an echocardiogram done at the [facility] in 2019 the patient's left-ventricular ejection fraction was 70% at that time. She is status post myectomy noted on the echo. The patient left-ventricular outflow tract obstruction measured 74 mmHg with systolic anterior motion of the mitral valve and 3+ mitral regurgitation. This was documented to be no different than her previous echo in 2018. The patient now comes in complaining of progressive shortness of breath. She does have a history of the GI bleed in February 2023 where hemoglobin was 8.2. Her initial hemoglobin on admission here was 8.2 again at this time this morning however is down to 6.5. The patient will be scheduled to receive 2 units of packed cells. Her INR is also elevated warfarin will be discontinued. In the emergency department there was a telemetry strip captured which appears to be a 14 beat run of ventricular tachycardia. There is a slight irregularity to the beats but there is definitely an alternative QRS complex compared to the resting left bundle branch block complex on the rhythm strip. This appears to be more consistent with VT then aberrancy. 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 She also intermittently about once a week maybe once every 2 weeks will have a lightheaded spell just sitting doing nothing. The patient has had Holter monitors in the past when she had had similar episodes this 24-hour Holter did not show any significant ectopy. However a 30- day event recorder did show short runs of both nonsustained VT and atrial fibrillation. This was in 2018. Currently the patient is resting flat in the bed without any significant complaints. She did report that she was short of breath just trying to walk to the bathroom and back this morning. She denies any lower extremity edema. [facility] Medical History History of CVA (cerebrovascular accident) (2009) Essential (primary) hypertension Left bundle branch block Nonrheumatic tricuspid (valve) insufficiency Secondary pulmonary hypertension History of idiopathic hypertrophic subaortic stenosis History of lower GI bleeding (10/26/15) Paroxysmal atrial fibrillation Nonrheumatic mitral (valve) insufficiency Hypertrophic cardiomyopathy Acute blood loss anemia Troponin I above reference range Aspiration pneumonia Hypotension Bleeding hemorrhoids Hyperlipidemia Tobacco use Vitamin B 12 deficiency Iron deficiency anemia Home Medications ?Medication ?Instructions ?Recorded ?Last Taken ?Type pravastatin 40 mg tablet 40 mg PO DAILY cholesterol 02/03/13 11/09/23 History metoprolol tartrate 50 mg tablet 50 mg PO BID #180 tabs 11/02/18 11/10/23 Rx warfarin 4 mg tablet 4 mg PO SUTUTH blood thinner 02/28/22 11/08/23 History ferrous sulfate 325 mg (65 mg 325 mg PO QODAY #30 tabs 03/01/22 11/10/23 Rx iron) tablet (FeroSul) furosemide 20 mg tablet 20 mg PO DAILY 11/10/23 11/08/23 History warfarin 3 mg tablet 3 mg PO MOWEFRSA 11/10/23 11/09/23 History Allergy/AdvReac Type Severity Reaction Status Date / Time verapamil Allergy Unknown Verified 11/10/23 14:21 Family History Mother Diabetes Heart disease Father Cancer Surgical History History of right and left heart catheterization (04/04/16) 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) Social History housing: house Smoking Status: Former smoker quit date: 01/09/17 pack-years: 24 ROS Constitutional Constitutional: Reports as per HPI Eyes Eyes: Reports systems reviewed and no addt'l complaints, except as documented ENT HEENT: Reports systems reviewed and no addt'l complaints, except as documented Cardiovascular Cardiovascular: Reports as per HPI Respiratory/Chest Respiratory/Chest: Reports as per HPI Gastrointestinal Gastrointestinal: Reports as per HPI Genitourinary Genitourinary: Reports systems reviewed and no addt'l complaints, except as documented Musculoskeletal Musculoskeletal: Reports systems reviewed and no addt'l complaints, except as documented Integumentary Integumentary: Reports systems reviewed and no addt'l complaints, except as documented Neurologic Neurologic: Reports as per HPI Psychiatric Psychiatric: Reports systems reviewed and no addt'l complaints, except as documented Endocrine Endocrinology: Reports systems reviewed and no addt'l complaints, except as documented Hematologic/Lymphatic Hematologic/Lymphatic: Reports as per HPI Allergic/Immunologic Allergic/Immunologic: Reports systems reviewed and no addt'l complaints, except as documented Physical Exam Const alert and oriented x3 HEENT normocephalic Eyes EOMs intact bilaterally Neck no JVD and no carotid bruits Chest inspection of chest normal Resp normal respiratory effort and clear to auscultation bilaterally Cardio Rate: regular rate Rhythm: regular rhythm Heart Sounds: S1 normal, S2 normal and murmur systolic IV/ harsh holo LVOT to the neck; Negative for click or gallop GI normal to inspection, nondistended, normoactive bowel sounds Extremity no pedal edema Skin no rashes or lesions noted Neuro Neuro Narrative: Alert and oriented x 3 Psych mental status grossly normal Risk Stratification Risk Stratification Applicable: No Charges/Coding Visit Charges Inpatient E&M: 41076 Init Hosp L3 Objective Data Vital Signs: Vital Signs Temp Pulse Resp BP Pulse Ox O2 Del Method 97.8 F 81 18 112/63 95 Room Air 11/11/23 04:00 11/11/23 04:00 11/11/23 04:00 11/11/23 04:00 11/11/23 04:00 11/11/23 04:00 Oxygen Delivery Method Room Air Weight: 147 lb 7.828 oz Body Mass Index (BMI) 29.7 Intake & Output: Intake and Output for Last 24 Hours 11/09/23 11/10/23 11/11/23 23:59 23:59 23:59 Intake Total 996.66 / 996.66 572.5 / 572.5 Balance 996.66 / 996.66 572.5 / 572.5 Lab / Micro Data 11/11/23 05:18 11/11/23 05:18 Labs: Laboratory Results - last 24 hr 11/10/23 14:52: WBC 6.0, RBC 2.87 L, Hgb 8.2 L, Hct 26.5 L, MCV 92.3, MCH 28.6, MCHC 30.9 L, RDW Std Deviation 46.4 H, RDW Coeff of Aubree 13.9, Plt Count 278, MPV 9.7, Immature Gran % (Auto) 0.500, Neut % (Auto) 73.5 H, Lymph % (Auto) 21.1, Kenedy % (Auto) 3.8, Eos % (Auto) 0.3, Baso % (Auto) 0.8, Absolute Neuts (auto) 4.4, Absolute Lymphs (auto) 1.26, Nucleated RBC % 0, PT 28.2 H, INR 2.7, APTT 32.3, Sodium 139, Potassium 4.5, Chloride 107, Carbon Dioxide 25.0, Anion Gap 7, BUN 26 H, Creatinine 1.12 H, Estim Creat Clear Calc 36.73, Est GFR (MDRD) Af Amer 61, Est GFR (MDRD) Non-Af 50 L, BUN/Creatinine Ratio 23.2 H, Glucose 162 H, Calcium 9.2, Phosphorus 3.2, Magnesium 2.0, Iron 45 L, TIBC 421, Iron Saturation 10.7 L, Ferritin 59, Troponin I High Sens 25, B-Natriuretic Peptide 373.9 H, TSH 1.920 11/10/23 15:16: Urine Color Yellow, Urine Clarity Cloudy, Urine pH 6.0, Ur Specific [employer] 1.025, Urine Protein 30 H, Urine Glucose (UA) Normal, Urine Ketones 5 H, Urine Occult Blood 50 H, Urine Nitrite Negative, Urine Bilirubin 1 H, Urine Urobilinogen 1 H, Ur Leukocyte Esterase 500 H, Urine RBC 0-5 SEEN, Urine WBC 10-25 SEEN, Ur Squamous Epith Cells 10-25 SEEN, Ur Renal Epithelial Cell 0-5 SEEN, Urine Bacteria 3+, Hyaline Casts 0-5 SEEN, Urine Mucus 0 SEEN 11/10/23 20:04: Vitamin B12 334 11/11/23 05:18: WBC 4.9, RBC 2.27 L, Hgb 6.5 L, Hct 21.5 L, MCV 94.7, MCH 28.6, MCHC 30.2 L, RDW Std Deviation 48.1 H, RDW Coeff of Aubree 14.2, Plt Count 214, MPV 10.4, Immature Gran % (Auto) 0.400, Neut % (Auto) 46.5 L, Lymph % (Auto) 38.8, Kenedy % (Auto) 10.0, Eos % (Auto) 3.5, Baso % (Auto) 0.8, Absolute Neuts (auto) 2.3, Absolute Lymphs (auto) 1.91, Nucleated RBC % 0, PT 29.0 H, INR 2.8, Sodium 141, Potassium 3.6, Chloride 113 H, Carbon Dioxide 24.0, Anion Gap 4 L, BUN 18, Creatinine 0.68, Estim Creat Clear Calc 51.85, Est GFR (MDRD) Af Amer 107, Est GFR (MDRD) Non-Af 89, BUN/Creatinine Ratio 26.3 H, Glucose 119 H, Calcium 8.6, Total Bilirubin 0.20, AST 21, ALT 16, Alkaline Phosphatase 42 L, Total Protein 5.7 L, Albumin 2.7 L, Globulin 3.0, Albumin/Globulin Ratio 0.9 Rhythm Strip Rate: 80 Ectopy: PVC(s) Cardiology Labs/Tests 11/10/23 14:52: WBC 6.0, RBC 2.87 L, Hgb 8.2 L, Hct 26.5 L, MCV 92.3, MCH 28.6, MCHC 30.9 L, Plt Count 278, MPV 9.7, Immature Gran % (Auto) 0.500, Neut % (Auto) 73.5 H, Lymph % (Auto) 21.1, Kenedy % (Auto) 3.8, Eos % (Auto) 0.3, Baso % (Auto) 0.8, Absolute Neuts (auto) 4.4, Nucleated RBC % 0, PT 28.2 H, INR 2.7, APTT 32.3, Sodium 139, Potassium 4.5, Chloride 107, Carbon Dioxide 25.0, Anion Gap 7, BUN 26 H, Creatinine 1.12 H, Est GFR (MDRD) Af Amer 61, Est GFR (MDRD) Non-Af 50 L, BUN/Creatinine Ratio 23.2 H, Glucose 162 H, Calcium 9.2, Phosphorus 3.2, Magnesium 2.0, Iron 45 L, TIBC 421, Iron Saturation 10.7 L, Ferritin 59, B- Natriuretic Peptide 373.9 H 11/10/23 15:16: Urine Color Yellow, Urine Clarity Cloudy, Urine pH 6.0, Ur Specific [employer] 1.025, Urine Protein 30 H, Urine Glucose (UA) Normal, Urine Ketones 5 H, Urine Occult Blood 50 H, Urine Nitrite Negative, Urine Bilirubin 1 H, Urine Urobilinogen 1 H, Ur Leukocyte Esterase 500 H, Urine RBC 0-5 SEEN, Urine WBC 10-25 SEEN 11/11/23 05:18: WBC 4.9, RBC 2.27 L, Hgb 6.5 L, Hct 21.5 L, MCV 94.7, MCH 28.6, MCHC 30.2 L, Plt Count 214, MPV 10.4, Immature Gran % (Auto) 0.400, Neut % (Auto) 46.5 L, Lymph % (Auto) 38.8, Kenedy % (Auto) 10.0, Eos % (Auto) 3.5, Baso % (Auto) 0.8, Absolute Neuts (auto) 2.3, Nucleated RBC % 0, PT 29.0 H, INR 2.8, Sodium 141, Potassium 3.6, Chloride 113 H, Carbon Dioxide 24.0, Anion Gap 4 L, BUN 18, Creatinine 0.68, Est GFR (MDRD) Af Amer 107, Est GFR (MDRD) Non-Af 89, B UN/Creatinine Ratio 26.3 H, Glucose 119 H, Calcium 8.6, Total Bilirubin 0.20 Rhythm: EKG: ECHO: Stress Test: Cardiac Cath: PCI: CT Surgery: Holter monitor: EPS: PPM: CXR: Chest CT Scan: Radiography Diagnostic Testing: Radiology Impression Abdomen/Pelvis CT 11/10/23 14:32 IMPRESSION: Cholelithiasis. Mild prominence of the common bile duct. Bilateral renal cysts. 4 mm nonobstructive right renal stone. Hiatal hernia. Duodenal diverticulum. Mild diverticulosis of the colon. Wall thickening of the sigmoid colon. This may be related to regional form of colitis or diverticulitis. Electronically Signed: Varinder Urias DO at 16:33 EDT , Chest X-Ray 11/10/23 15:45 IMPRESSION: No radiographic evidence of acute cardiopulmonary disease. Electronically Signed: Varinder Urias DO at 16:48 EDT , EKG Initial EKG: Attestation: I personally reviewed and interpreted this EKG as follows: (EKG showed normal sinus rhythm at 82 bpm with a left bundle branch block. The left bundle branch block is chronic.)
--- NOTE | 2023-11-11 08:44 | PN.HOSP_ITS ---
Reason for Visit Reason for Visit: Lightheadedness/dizziness/intermittent abdominal pain Subjective Subjective Mrs. Wang is a 73-year-old white female who presented to the emergency department at [facility] on 11/11/2023 with multiple complaints including and predominantly lightheadedness, dizziness, and intermittent abdominal pain. Patient reported that she has been feeling generally unwell for the last several months and having a lot of weakness and dizziness along with lightheaded spells that are occasionally noted with standing or bending but sometimes a trigger is not noted. She also complained of lower abdominal pain and that has been going on for the past several months without diarrhea. She had a little bit of nausea earlier in the day prior to presentation but no emesis. She reports having dark stools for a few weeks but is on iron so she was unclear of the significance. She did have an admission here in February for which an EGD was performed but no source of bleeding was found at that time. No follow-up colonoscopy was pursued. She does have a history of atrial fibrillation and is on chronic Coumadin. Upon review of records this morning, I did find an echo from 2019 that was done which was done for history of hypertrophic cardiomyopathy status post myomectomy. Her LV was noted to be small and there was severe LVH with an EF of 70 to 75%, the RV was normal, the left atrial cavity was mildly dilated and there was moderate mitral valve regurgitation likely related to her hokum with MARIAN she was noted to be status post myomectomy with an LVOT gradient at rest of 74 mmHg and MARIAN with 3+ MR and no change with Valsalva. This was compared to an echocardiogram that was done in 2018 and showed no significant change. She evidently has not seen a landscape technician since 2019. Orthostatic vitals were negative and presentation, temperature was 97.9, heart rate 80, respiratory rate was 18, blood pressure was 123/53 and pulse ox was 100% on room air. While the hospitalist was admitting her a 17 beat run of wide-complex tachycardia was noted. Her CBC showed a normal white count however she did have a hemoglobin of 8.2. Earlier in October on 10/23/2023 her hemoglobin was 7.4. Patient refused rectal exam to assess for Hemoccult. Coags were elevated with an INR of 2.7 as she is on Coumadin at baseline. Her chemistry panel was overall underwhelming other than some mild dehydration with a BUN of 27 and serum creatinine of 1.12 with a baseline serum creatinine of 0.6-0.8. Glucose was 162. Liver functions were unremarkable. Iron studies were obtained and are consistent with iron deficiency. Her BNP was elevated at 373.9 and likely related to the above hold on. TSH was normal. A UA was obtained and she did appear to be dehydrated with a specific gravity of 0.25. She did have some occult blood, leuk esterase, white cells and 3+ bacteria so urine culture was sent and she was started on ceftriaxone. Repeat hemoglobin on 11/11/2023 noted a precipitous drop in her hemoglobin from 8.2-6.5 and she was given 3 units of packed red blood cells. Cardiology was consulted to assist with her previous hypertrophic cardiomyopathy. Patient is anxious to go home. She states she is quite fatigued and her symptoms have been ongoing for a long time. Initially not interested in colonoscopy however we did discuss the need for it based on her anemia and she did states she would comply with this. Indicates she had a recent echocardiogram however unknown hemoglobin at that time so we will repeat after transfusion. Objective Data Objective Data Vital Signs: Vital Signs Temp Pulse Resp BP Pulse Ox O2 Del Method 97.8 F 81 18 112/63 95 Room Air 11/11/23 04:00 11/11/23 04:00 11/11/23 04:00 11/11/23 04:00 11/11/23 04:00 11/11/23 04:00 Oxygen Delivery Method Room Air Weight: 66.9 kg Body Mass Index (BMI) 29.7 Intake & Output: Intake and Output for Last 24 Hours 11/09/23 11/10/23 11/11/23 23:59 23:59 23:59 Intake Total 996.66 / 996.66 572.5 / 572.5 Balance 996.66 / 996.66 572.5 / 572.5 Lab / Micro Data 11/11/23 09:49 11/11/23 05:18 Labs: Laboratory Results - last 24 hr 11/10/23 14:52: WBC 6.0, RBC 2.87 L, Hgb 8.2 L, Hct 26.5 L, MCV 92.3, MCH 28.6, MCHC 30.9 L, RDW Std Deviation 46.4 H, RDW Coeff of Aubree 13.9, Plt Count 278, MPV 9.7, Immature Gran % (Auto) 0.500, Neut % (Auto) 73.5 H, Lymph % (Auto) 21.1, Flagler % (Auto) 3.8, Eos % (Auto) 0.3, Baso % (Auto) 0.8, Absolute Neuts (auto) 4.4, Absolute Lymphs (auto) 1.26, Nucleated RBC % 0, PT 28.2 H, INR 2.7, APTT 32.3, Sodium 139, Potassium 4.5, Chloride 107, Carbon Dioxide 25.0, Anion Gap 7, BUN 26 H, Creatinine 1.12 H, Estim Creat Clear Calc 36.73, Est GFR (MDRD) Af Amer 61, Est GFR (MDRD) Non-Af 50 L, BUN/Creatinine Ratio 23.2 H, Glucose 162 H, Calcium 9.2, Phosphorus 3.2, Magnesium 2.0, Iron 45 L, TIBC 421, Iron Saturation 10.7 L, Ferritin 59, Troponin I High Sens 25, B-Natriuretic Peptide 373.9 H, TSH 1.920 11/10/23 15:16: Urine Color Yellow, Urine Clarity Cloudy, Urine pH 6.0, Ur Specific [place] 1.025, Urine Protein 30 H, Urine Glucose (UA) Normal, Urine Ketones 5 H, Urine Occult Blood 50 H, Urine Nitrite Negative, Urine Bilirubin 1 H, Urine Urobilinogen 1 H, Ur Leukocyte Esterase 500 H, Urine RBC 0-5 SEEN, Urine WBC 10-25 SEEN, Ur Squamous Epith Cells 10-25 SEEN, Ur Renal Epithelial Cell 0-5 SEEN, Urine Bacteria 3+, Hyaline Casts 0-5 SEEN, Urine Mucus 0 SEEN 11/10/23 20:04: Vitamin B12 334 11/11/23 05:18: WBC 4.9, RBC 2.27 L, Hgb 6.5 L, Hct 21.5 L, MCV 94.7, MCH 28.6, MCHC 30.2 L, RDW Std Deviation 48.1 H, RDW Coeff of Aubree 14.2, Plt Count 214, MPV 10.4, Immature Gran % (Auto) 0.400, Neut % (Auto) 46.5 L, Lymph % (Auto) 38.8, Flagler % (Auto) 10.0, Eos % (Auto) 3.5, Baso % (Auto) 0.8, Absolute Neuts (auto) 2.3, Absolute Lymphs (auto) 1.91, Nucleated RBC % 0, PT 29.0 H, INR 2.8, Sodium 141, Potassium 3.6, Chloride 113 H, Carbon Dioxide 24.0, Anion Gap 4 L, BUN 18, Creatinine 0.68, Estim Creat Clear Calc 51.85, Est GFR (MDRD) Af Amer 107, Est GFR (MDRD) Non-Af 89, BUN/Creatinine Ratio 26.3 H, Glucose 119 H, Calcium 8.6, Total Bilirubin 0.20, AST 21, ALT 16, Alkaline Phosphatase 42 L, Total Protein 5.7 L, Albumin 2.7 L, Globulin 3.0, Albumin/Globulin Ratio 0.9 Radiography Diagnostic Testing: Radiology Impression Abdomen/Pelvis CT 11/10/23 14:32 IMPRESSION: Cholelithiasis. Mild prominence of the common bile duct. Bilateral renal cysts. 4 mm nonobstructive right renal stone. Hiatal hernia. Duodenal diverticulum. Mild diverticulosis of the colon. Wall thickening of the sigmoid colon. This may be related to regional form of colitis or diverticulitis. Electronically Signed: Varinder Urias DO at 16:33 EDT , Chest X-Ray 11/10/23 15:45 IMPRESSION: No radiographic evidence of acute cardiopulmonary disease. Electronically Signed: Varinder Urias DO at 16:48 EDT , Physical Exam Const alert, oriented x3, no apparent distress and well nourished; Negative for average body habitus or healthy appearing Constitutional Narrative: Overweight, elderly, white female, sitting up in bed, family at bedside, nursing staff at bedside, does not appear toxic or uncomfortable HEENT head/scalp atraumatic and moist oral mucous membranes HEENT Narrative: Mallampati is 2, no thrush Head and Scalp: normocephalic Eyes EOMs intact bilaterally Eyes Narrative: Conjunctiva are markedly pale bilaterally, no scleral icterus Neck no lymphadenopathy and supple Neck Narrative: Trachea midline, no thyroid enlargement Resp normal respiratory effort, no retractions, no use of accessory muscles and clear to auscultation bilaterally Auscultation: Negative for rales, rhonchi or wheezes Cardio regular rate, regular rhythm, S1 normal heart sound, S2 normal heart sound, no rub, no gallops and no clicks; Negative for no murmurs Cardio Narrative: 4 out of 6 systolic murmur that enhances with Valsalva GI normal to inspection, nondistended, normoactive bowel sounds, soft to palpation and non-tender Extremity no clubbing, cyanosis or edema Extremity Narrative: Radial and pedal pulses are 2+ Skin Skin Narrative: Skin is pale, no wounds noted Neuro oriented x3, moves all extremities and no focal motor deficits Speech: speech normal Psych Psych Narrative: Affect is slightly flattened mood seems somewhat depressed however patient makes good eye contact Assessment & Plan Assessment/Plan (1) Light headedness: (2) Hypertrophic cardiomyopathy: (3) Acute on chronic anemia: (4) Abnormal urinalysis: (5) Dehydration: PLAN: Plan Lightheadedness/presyncope -Suspect related to volume depletion with dehydration/acute anemia/and HOCM with severe MR -Echocardiogram is pending -Monitor on telemetry -Transfuse 3 units packed red blood cells -hopefully will feel better once transfused as she is very preload dependent -Event monitor at discharge for 30 days Suspected GI bleed -Guaiac is pending however iron studies are consistent with iron deficiency and hemoglobin is down almost 2 g from yesterday -Continue to hold Coumadin -Will give vitamin K 10 mg IV x 1 dose for reversal since suspected active bleeding -Cycle hemoglobin every 6 hours after transfusion -Start Protonix 40 mg IV push twice daily -Had EGD in February 2023 which demonstrated esophageal plaques consistent with candidiasis, large hiatal hernia and normal duodenum to the second portion -Biopsies were consistent with candidiasis and patient was treated with nystatin -Clear liquid diet for now -N.p.o. after midnight for hopeful scopes tomorrow -Will start prep for colonoscopy if okay with Dr. Blank due to diverticulitis noted on CT -Patient was instructed to follow-up with gastroenterology at hospital visit in February but it does not appear that he follow-up occurred -GI consult placed and Dr. Balnk notified via text Acute on chronic anemia -Patient appears to have a long history of anemia -8.2 on presentation but down to 6.5 this morning -Will give 3 units packed red blood cells -Patient will not tolerate anemia well due to her history of hypertrophic cardiomyopathy with MARIAN -Suspect related to GI bleed as iron studies are consistent with iron deficiency -Treatment and workup as above -Restart home iron supplementation--> patient had not been compliant due to constipation H/O HCOM with MARIAN/3+MR -Previous myomectomy--> [address] Graves at -Cardiology is following to assist with management -Echocardiogram is pending -Metoprolol 25 mg p.o. 3 times daily added to regimen -Patient does not desire any further surgical procedures -Will obtain echocardiogram after transfusion Chronic LBBB -Likely related to her hypertrophic cardiomyopathy -Previous catheterization in 2016 with minimal coronary disease noted at that time and normal right pulmonary pressures Paroxysmal atrial fibrillation -Highly suspect 17 beat run of wide-complex tachycardia noted on admission was A-fib with aberrancy -Continue to monitor on telemetry -Beta-heriberto as noted above -Coumadin on hold for now Abnormal UA -Suspicious for infection -Cultures pending -Continue ciprofloxacin Generalized weakness -Likely related to anemia in the setting of hypertrophic cardiomyopathy with MARIAN and 3+ mitral regurgitation -Echocardiogram is pending after transfusion -PT/OT eval -Case management/social work eval Diverticulitis -Mild diverticulitis noted on CT -Continue Cipro and Flagyl -Will likely transition to Augmentin at discharge depending on urine sensitivities if positive -GI is consulted for GI bleed--> depending on symptoms and GI preference may need to hold off on colonoscopy due to this Essential HTN/HPL -Continue on pravastatin -Continue metoprolol -Hold Lasix DVT prophylaxis -Reversing INR with Coumadin on hold -SCDs CODE STATUS -Full code as verified on admission Charges/Coding Visit Charges Inpatient E&M: 66677 [facility] L3
[2023-11-11] MEDS: Ciprofloxacin 400 MG/200 ML BAG 200 MG IV ×2 (09:32→23:13)
[2023-11-11 10:02] LABS: Hemoglobin 6.2 g/dL (12.0-15.0)
[2023-11-11] MEDS: Phytonadione (Vit K) 10 MG in 0.9% Normal Saline (50mL Bag) 50 ML 150 MG IV (11:29)
[2023-11-11] MEDS: Pantoprazole Sodium 40 MG in 0.9% Normal Saline (100mL MB+) 100 ML 330 MG IV ×2 (12:31→22:04)
--- NOTE | 2023-11-11 14:30 | CASEMGMT ---
OLGA ASTUDILLO Assessment: Face to Face with pt for initial transition planning/care coordination assessment. RN WILDA introduced self and role at [facility], pt voices understanding and consents to assessment. Pt is A&O x4 and answers all questions appropriately at this time. Pt lying in bed in no distress. Care providers, pharmacy, and demographics verified/updated. Strata: 2 Admitting Dx: Weakness, Light Headedness, Anemia. PCP: Elliot Specialists: Denies Hx of. Preferred Pharmacy: [facility] Insurance: [employer]. Prescription Benefit: yes LNOK: Michael, . Living Arrangements: Pt lives with in a 2 story home with 3 steps to enter. ADLs: Pt reports I with ADLs and IADLs. Transportation: Pt drives self and denies concerns with transportation. DME: Denies DME at home. HHC/SNF: Denies Hx of. Pt states no concerns with going home at time of dc. Pt states no further concerns/needs. CM to follow. Advised pt to ask CM if any further question/concerns/needs arise, voices understanding. Pt Goal: Home. Plan: Home, Follow plan of care. Gal ESPINOZA CM
[2023-11-11] MEDS: Metoprolol Tartrate 25 MG Tablet PO ×2 (15:05→22:04)
--- NOTE | 2023-11-11 15:33 | CASEMGMT ---
Social Work SW met with pt to discuss advance directives.? Pt confirms she has completed a living will and health care POA naming her Michael Wang.? Pt notified that documents are not on file at [facility] and SW requested they be brought in for scanning into the EMR.? ADELAIDE Valles
[2023-11-11] MEDS: Electrolyte Solution/Peg's 4000 ML PO (16:16)
[2023-11-11 21:24] LABS: Hemoglobin 10.7 g/dL (12.0-15.0)
[2023-11-11] MEDS: 0.9% Saline Lock 10 ML Syringe IV (21:57)
[2023-11-11] MEDS: Pravastatin 40 MG Tablet PO (22:05)
[2023-11-12] VITALS (17 sets, daily range): BP systolic 104–141; BP diastolic 45–73; PULSE 68–86; RESP 14–18; TEMP 35.7–36.8; O2SAT 93–98; BMI 29.7; BMI 31.1
--- NOTE | 2023-11-12 | COLBX_PTH ---
PATIENT: RICHARD ROSA LOC: [facility] U#:[id number] AGE/SX: 73/F ROOM: [facility] RE11/11/[address]: Dr. Latosha Mathew DO : 1950 BED: 1 DIS: 11/13/2023 SPEC #: [id number] RECD: 11/12/23 17:39 STATUS: RAVEN REQ #: [id number] LINCOLN: 11/12/23 00:[address]: Jorje Blank DEPT: SURGICAL PATHOLOGY RECD BY: Robbie Ervin ENTERED: 11/13/23 11:44 SP TYPE: COLON BX OTHR DR: DO Dr. Guille Tompkins MD Dr. Michael Hughes, MD Dr. Paige Pierce, MD Tissues: A - Duodenum, NOS B - Cecum, NOS Procedures: Surgery Specimen Level IV Comments: @ Ordering doctor for SUIV edited from to @ raven LORENZANA at 11/13/23 1158 @ Submitting doctor edited from to @ raven LORENZANA at 11/13/23 1158 HEADER OPERATION: Colonoscopy with polypectomy and cautery using gold probe PRE-OP DIAGNOSIS: Anemia, cecal polyp TISSUE SUBMITTED: A- Duodenum biopsy, B- Cecal polyps MICROSCOPIC DIAGNOSIS A. Duodenum, biopsy: Fragments of duodenal mucosa, no pathologic diagnosis. B. Cecal polyps, polypectomy: Fragments of tubular adenoma. Fragments of fecal material. 11/16/2023 MICROSCOPIC DESCRIPTION Slides are reviewed. GROSS DESCRIPTION A. Received in fixative is one container labeled with the patient's name and designated Duodenum biopsy. The specimen consists of two irregular fragments of light wong soft tissue that in aggregate measure 0.5 x 0.5 x 0.1 cm. The specimen is totally submitted in one cassette. B. Received in fixative is one container labeled with the patient's name and designated Cecal polyps. The specimen consists of multiple irregular fragments of light wong soft tissue that in aggregate measure 2.5 x 1.5 x 0.3 cm. The specimen is totally submitted in one cassette. 11/13/2023 TC:1 CPT:84747j7
[2023-11-12 03:44] LABS: Hematocrit 29.9 % (37-47); Mean Corp Hgb Conc 33.4 g/dL (32-36); Mean Corpuscular Hgb 29.5 pg (27.0-32.0); Mean Corpuscular Volume 88.2 fL (81-99); Mean Platelet Vol. 9.4 fl (6.2-12.0); Platelet Count 194 K/mm3 (150-450); RBC Distribution Width CV 15.3 % (11.6-14.6); RBC Distribution Width SD 48.4 fl (35.1-43.9); Red Blood Count 3.39 M/mm3 (4.2-5.4); White Blood Count 7.7 K/mm3 (4.4-11.0)
[2023-11-12 03:53] LABS: International Normalized Ratio 1.4; Prothrombin Time (Protime)PT. 17.2 SECONDS (11.7-14.9)
[2023-11-12 03:54] LABS: Partial Thromboplast Time 26.8 Seconds (24.1-36.2)
[2023-11-12 04:30] LABS: AST(SGOT) 23 U/L (15-37); Alanine Aminotransfer ALT/SGPT 18 U/L (13-56); Albumin, Serum 2.8 g/dL (3.2-5.0); Alkaline Phosphatase 48 U/L (45-117); Anion Gap 4 (5-15); BUN 9 mg/dL (7-18); BUN/Creat Ratio 16.3 RATIO (10-20); Calcium,Total 8.1 mg/dL (8.5-10.1); Chloride 112 mmol/L (98-107); Creatinine, Serum 0.55 mg/dL (0.55-1.02); EST Glomerular Filtration Rate 114 mL/min (>60); Est Glom Filt Rate - Afr Amer 138 mL/min (>60); Estimated Creatinine Clearance 51.85 ml/min; Globulin 2.8 g/dL (2.2-4.2); Glucose 110 mg/dL (74-106); Magnesium 1.6 mg/dL (1.6-2.6); Phosphorus 1.7 mg/dL (2.5-4.9); Potassium 3.5 mmol/L (3.5-5.1); Protein, Total 5.6 g/dL (6.4-8.2); Sodium Level 141 mmol/L (136-145)
[2023-11-12] MEDS: Potassium Phosphate 30 MM in 0.9% Normal Saline (250mL Bag) 250 ML 42 MM IV (05:03)
[2023-11-12] MEDS: Magnesium Sulfate 1 GM in Dextrose 5%-Water (100mL Bag) 100 ML IV (05:13)
[2023-11-12] MEDS: metroNIDAZOLE 500 MG/100 ML BAG 100 MG IV ×3 (05:18→22:15)
[2023-11-12] MEDS: 0.9% Saline Lock 10 ML Syringe IV ×3 (05:19→23:30)
[2023-11-12] MEDS: Metoprolol Tartrate 25 MG Tablet PO (05:26)
--- NOTE | 2023-11-12 05:55 | EKG12_ITS ---
Test Reason : PRE OP Blood Pressure : / mmHG Vent. Rate : 082 BPM Atrial Rate : 082 BPM P-R Int : 140 ms QRS Dur : 158 ms QT Int : 462 ms P-R-T Axes : 063 018 182 degrees QTc Int : 539 ms Normal sinus rhythm Possible Left atrial enlargement Left bundle branch block Abnormal ECG When compared with ECG of 10-NOV-2023 14:36, T wave inversion more evident in Inferior leads Confirmed by MAYRA HARDEN, SHIRA ([id number]), publication editor KRIS STEWART ([id number]) on 12/10/2023 2:15:35 PM Referred By: Confirmed By:SHIRA NUNEZ MD
--- NOTE | 2023-11-12 09:39 | PN.CARD_ITS ---
Subjective Subjective Patient reports that she is feeling much better after transfusion of 3 units of blood. Hemoglobin is up to 10. She is able to walk to the bathroom and around the room without dyspnea. The patient had an echocardiogram done at the [facility] last week with an unknown hemoglobin. At that time her resting outflow tract gradient was 20 and with Valsalva increased to 40. Prior to this and a previous echo in 2018 it had been documented that her LVOT obstruction gradient was 70. We will plan to repeat her echo limited echo to check her LVOT gradient and LV function with mitral regurgitation evaluation today. She has tolerated the lower dose of metoprolol 25 mg 3 times daily. Objective Data Vital Signs: Vital Signs Temp Pulse Resp BP Pulse Ox O2 Del Method 97.5 F L 82 18 141/73 H 94 Room Air 11/12/23 09:28 11/12/23 09:28 11/12/23 09:28 11/12/23 09:28 11/12/23 09:28 11/12/23 09:28 Oxygen Delivery Method Room Air Weight: 153 lb 14.122 oz Body Mass Index (BMI) 31.1 Intake & Output: Intake and Output for Last 24 Hours 11/10/23 11/11/23 11/12/23 23:59 23:59 23:59 Intake Total 996.66 / 996.66 2547.33 / 2547.33 402.0 / 402.0 Balance 996.66 / 996.66 2547.33 / 2547.33 402.0 / 402.0 Lab / Micro Data 11/12/23 03:25 11/12/23 03:25 Labs: Laboratory Results - last 24 hr 11/11/23 08:52: Blood Type A POSITIVE, Antibody Screen NEGATIVE, Crossmatch See Detail 11/11/23 09:49: Hgb 6.2 L 11/11/23 21:14: Hgb 10.7 L 11/12/23 03:25: WBC 7.7, RBC 3.39 L, Hgb 10.0 L, Hct 29.9 L, MCV 88.2 D, MCH 29.5, MCHC 33.4 D, RDW Std Deviation 48.4 H, RDW Coeff of Aubree 15.3 H, Plt Count 194, MPV 9.4, PT 17.2 H, INR 1.4, APTT 26.8, Sodium 141, Potassium 3.5, Chloride 112 H, Carbon Dioxide 25.0, Anion Gap 4 L, BUN 9, Creatinine 0.55, Estim Creat Clear Calc 51.85, Est GFR (MDRD) Af Amer 138, Est GFR (MDRD) Non-Af 114, BUN/Creatinine Ratio 16.3, Glucose 110 H, Calcium 8.1 L, Phosphorus 1.7 L, Magnesium 1.6, Total Bilirubin 1.80 H, AST 23, ALT 18, Alkaline Phosphatase 48, Total Protein 5.6 L, Albumin 2.8 L, Globulin 2.8, Albumin/Globulin Ratio 1.0, TSH 2.000 Micro: Microbiology 11/11/23 21:35 Stool Stool Occult Blood (AGGIE) - Final Occult Blood Positive 11/10/23 15:16 Urine, Clean Catch Urine Culture - Preliminary GNR lactose grey washer Rhythm Strip Rhythm Strip: Sinus Rhythm Rate: 70 Ectopy: PVC(s) and - (Multiple episodes of 69 beats of VT. These were all asymptomatic) Cardiology Labs/Tests 11/11/23 09:49: Hgb 6.2 L 11/11/23 21:14: Hgb 10.7 L 11/12/23 03:25: WBC 7.7, RBC 3.39 L, Hgb 10.0 L, Hct 29.9 L, MCV 88.2 D, MCH 29.5, MCHC 33.4 D, Plt Count 194, MPV 9.4, PT 17.2 H, INR 1.4, APTT 26.8, Sodium 141, Potassium 3.5, Chloride 112 H, Carbon Dioxide 25.0, Anion Gap 4 L, BUN 9, Creatinine 0.55, Est GFR (MDRD) Af Amer 138, Est GFR (MDRD) Non-Af 114, BUN/Creatinine Ratio 16.3, Glucose 110 H, Calcium 8.1 L, Phosphorus 1.7 L, Magnesium 1.6, Total Bilirubin 1.80 H Rhythm: EKG: ECHO: Stress Test: Cardiac Cath: PCI: CT Surgery: Holter monitor: EPS: PPM: CXR: Chest CT Scan: Physical Exam Const alert and oriented x3 HEENT normocephalic Eyes EOMs intact bilaterally Neck no JVD Resp normal respiratory effort and clear to auscultation bilaterally Cardio Rate: regular rate Rhythm: regular rhythm Heart Sounds: S1 normal, S2 normal and murmur systolic III/ harsh; Negative for click or gallop Extremity no pedal edema Neuro Neuro Narrative: Alert and oriented x 3 Psych mental status grossly normal Assessment & Plan Assessment/Plan (1) Acute on chronic anemia: PLAN: Patient's hemoglobin up to 3:10 units of blood transfused yesterday. Coumadin remains on hold INR is 1.7 today. Further evaluation of the anemia and bleeding per the primary service. (2) Hypertrophic cardiomyopathy: PLAN: Patient's echo last week at the [facility] showed left-ventricular outflow tract obstruction of 40 mmHg with Valsalva. This was markedly less than the resting gradient of 74 documented in 2018 after her myectomy. The patient reports status posttransfusion that her dyspnea on exertion has markedly improved she feels much better and is essentially back to baseline. The patient does continue to have short runs of nonsustained ventricular tachycardia but they are much less prominent than prior to her transfusion. (3) Nonrheumatic mitral (valve) insufficiency: PLAN: Patient has 2-3+ mitral regurgitation related to systolic anterior motion of the mitral valve due to her dynamic left ventricular outflow tract obstruction. (4) Paroxysmal atrial fibrillation: PLAN: The patient is in sinus rhythm on telemetry we have not documented atrial fibrillation since this admission. The patient's Coumadin is on hold due to her second bleeding episode since February 2023. Given the patient's significant deterioration from a hemodynamic standpoint with anemia I would recommend that we refrain from anticoagulating her at this time. The patient should be considered for a Watchman device at some point in time in the future if this is felt to be appropriate. She should follow-up with the electrophysiology department at the [facility]. If the patient continues to have nonsustained VT in the face of hypertrophic obstructive cardiomyopathy consideration for a defibrillator would be indicated. I discussed this with the patient today and would recommend that she be evaluated by [facility] EP for their opinion. (5) Left bundle branch block: PLAN: The patient has a chronic left bundle branch block related to her LV hypertrophy and obstructive cardiomyopathy. (6) Essential (primary) hypertension: PLAN: Blood pressures been better controlled would recommend that we increase her metoprolol back to her home dose of 50 mg twice daily of metoprolol tartrate. The patient should avoid diuretic therapy to maintain adequate volume. PLAN: Plan 1. Will increase metoprolol to tartrate to 50 mg twice daily. 2. Continue to monitor telemetry. 3. Continue evaluation and treatment for presumed GI bleed. 4. Would hold warfarin and discontinue it for the time being given her second bleeding episode in the last 6 months. 5. Would recommend she be evaluated by [facility] EP for evaluation for possible Watchman device and implantable defibrillator given her VT in the face of hypertrophic obstructive cardiomyopathy. 6. I will continue to follow along with you please call if further assistance is needed. 7. If the patient's VT resolves with adequate hemoglobin and back on her routine medical therapy then would defer EP evaluation to outpatient status. If she continues to have ventricular tachycardia would recommend that she be transferred for EP evaluation as an inpatient given her hypertrophic obstructive cardiomyopathy. Charges/Coding Visit Charges Inpatient E&M: 66460 [facility] L3
[2023-11-12] MEDS: Pantoprazole Sodium 40 MG in 0.9% Normal Saline (100mL MB+) 100 ML 330 MG IV ×2 (09:45→23:29)
[2023-11-12] MEDS: Metoprolol Tartrate 50 MG Tablet PO ×2 (09:48→22:07)
[2023-11-12] MEDS: Ciprofloxacin 400 MG/200 ML BAG 200 MG IV ×2 (10:26→22:16)
[2023-11-12] MEDS: 0.9% Normal Saline (1000mL) 1,000 ML 15 ML IV (12:03)
--- NOTE | 2023-11-12 12:03 | PRE.ANES_ITS ---
ASA Classification* ASA Classification ASA Classification: 3 Assessment & Plan Anesthesia* Anesthesia Assessment Anesthesia Assessment: Discussed sedation and/or anesthesia options, risks, benefits, and alternatives with patient/parents/legal guardian/POA. Questions invited. The patient/parents/legal guardian/POA seems to understand and agrees to proceed with anesthesia plan. Reviewed the physical assessment, medical history, allergy history and patient home medications list prior to surgery/procedure/anesthetic and documented any changes. Performed airway and anesthesia risk assessments. Anesthesia Type Anesthesia Type: MAC History Source History Obtained from:: Patient and Chart Anesthesia Focused Assessment* Temperature: 97.5 F Pulse Rate: 82 Blood Pressure: 141/73 Respiratory Rate: 18 Pulse Ox: 94 Oxygen Delivery Method: Room Air Airway Assessment Mouth opens: >3 cm Mallampati Score: III Teeth Condition: Full (Full upper plate is out.) and Missing (Patient missing molars both sides on the lower jaw) Neck Range of motion (ROM): Limited ROM (slight decrease in extension) Focused Labs Anesthesia Preop lab: CBC WBC 7.7 K/mm3 (4.4-11.0) 11/12/23 03:25 RBC 3.39 M/mm3 (4.2-5.4) L 11/12/23 03:25 Hgb 10.0 g/dL (12.0-15.0) L 11/12/23 03:25 Hct 29.9 % (37-47) L 11/12/23 03:25 Plt Count 194 K/mm3 (150-450) 11/12/23 03:25 CHEMISTRY Potassium 3.5 mmol/L (3.5-5.1) 11/12/23 03:25 Sodium 141 mmol/L (136-145) 11/12/23 03:25 Magnesium 1.6 mg/dL (1.6-2.6) 11/12/23 03:25 Phosphorus 1.7 mg/dL (2.5-4.9) L 11/12/23 03:25 BUN 9 mg/dL (7-18) 11/12/23 03:25 Creatinine 0.55 mg/dL (0.55-1.02) 11/12/23 03:25 Glucose 110 mg/dL (74-106) H 11/12/23 03:25 TSH 2.000 uIU/mL (0.358-3.740) 11/12/23 03:25 COAG PT 17.2 SECONDS (11.7-14.9) H 11/12/23 03:25 Pre-Assessment Diagnosis/Proposed Procedure Planned Operative Procedure(s): Esophagogastroduodenoscopy and colonoscopy Anesthesia History 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 When Was Last Pacemaker Check QUESTION #4 FULL TEXT: You/Your Family Experience fever (hyperthermia) with Anesthesia Last Oral Intake Last Oral intake: Last Oral Intake NPO since 00:00 11/12/23 09:28 Meds taken in AM with sips of water? Meds patient instructed to take am of surgery Any additional information?: Yes NPO since: 02:00 (Patient finished prep at 2 AM.) Meds taken in AM with sips of water?: Yes PONV PONV - electronic equipment set up operator: PONV - electronic equipment set up operator Female HX of Motion Sickness HX of N/V After Surgery Non-Smoker Duration of Surgery greater than 60 minutes Number of Risk Factors PONV Score Height & Weight Height & Weight: Anesthesia: Height & Weight Height 4 ft 11 in 11/12/23 09:28 Weight: 69.8 kg 11/12/23 09:28 Body Mass Index (BMI) 31.1 11/12/23 09:28 Respiratory Assessment Respiratory Assessment - electronic equipment set up operator: Respiratory Tract Infection Hx - electronic equipment set up operator Hx Respiratory Tract Infection No 11/12/23 00:34 STOP Sleep Apnea STOP Sleep Apnea - electronic equipment set up operator: STOP Sleep Apnea - electronic equipment set up operator Hx Hypertension Yes 11/11/23 15:50 Hx Sleep Apnea No 11/10/23 18:53 CPAP No 11/10/23 18:53 BIPAP No 11/10/23 18:53 Do you snore loudly (louder Yes 11/10/23 18:53 than talking or can be heard Do you often feel tired/ Yes 11/10/23 18:53 fatigued/ sleepy during daytime? Has anyone observed you stop No 11/10/23 18:53 breathing during sleep? STOP Results Positive 11/10/23 18:53 QUESTION #5 FULL TEXT : Do you snore loudly (louder than talking or can be heard through closed doors)? Tobacco Use History Tobacco Use History - electronic equipment set up operator: Tobacco Use History - electronic equipment set up operator Tobacco Use Smoking Status Former smoker 11/10/23 18:53 Hx Tobacco Use No 11/10/23 18:53 Years Smoking Packs Smoked per Day Smoking Cessation Date was Yes - quit smoking within 15 11/10/23 18:53 within the last 15 years years Hx Smoking Cessation Date Hx Smoking Cessation No 11/10/23 18:53 Counseling Hematologic Medial History Hematologic Hx - electronic equipment set up operator: Hematologic Medical Hx - shrinker Hx of Blood Transfusion Yes 11/10/23 18:53 Hx of Transfusion in last 3 No 11/10/23 18:53 Months Date of Last Transfusion (if within last 3 months) Ever experience any problems No 11/10/23 18:53 with transfusion(s)? Specify any problems Hx of Preganancy in last 3 N/A 11/10/23 18:53 Months Nurse Filling Out Transfusion DSLOAN 11/10/23 18:53 & Questions: Date: 11/10/23 11/10/23 18:53 Time: 18:54 11/10/23 18:53 Patient unable to answer at this time (ie. confused, unrespo /Reproduction History /Reproductive History - electronic equipment set up operator: /Reproductive Hx- electronic equipment set up operator Hx Now No 11/12/23 00:34 Gestational Age (in weeks): EDC: Hx Hx Para Hx Section SAB No 11/12/23 00:34 Active Medications Active Medications: Current Medications Generic Name Dose Route Start Last Admin Trade Name Freq PRN Reason Stop Dose Admin Acetaminophen 650 mg 11/10/23 18:48 Acetaminophen 325 Mg Tablet PO Q6H PRN PRN Pain 1-10 Or Fever >100.7 Albuterol Sulfate 2.5 mg 11/10/23 18:48 Albuterol 2.5 Mg/3 Ml Vial.Neb. INHALATION Q2H PRN PRN SOB &/OR WHEEZING Calcium Carbonate 1,000 mg 11/10/23 22:18 11/10/23 22:56 Calcium Carbonate 500 Mg Tablet PO 1,000 mg Q6H PRN PRN Administration DYSPEPSIA Ferrous Sulfate 325 mg 11/12/23 12:00 Ferrous Sulfate 325 Mg Tablet PO QODAY@1200 MARY Metronidazole 500 mg in 100 mls @ 100 mls/hr 11/10/23 23:00 11/12/23 06:25 Flagyl IV Infused Q8 MARY Infusion Ciprofloxacin 400 mg in 200 mls @ 200 mls/hr 11/10/23 22:00 11/12/23 10:26 Cipro IV 200 mls/hr Q12 MARY Administration Sodium Chloride 250 mls @ 15 mls/hr 11/10/23 18:51 IV .[id number] PRN Additional IVPB Infusion Sodium Chloride 250 mls @ 15 mls/hr 11/10/23 18:51 IV .[id number] PRN Saline Flush Pantoprazole Sodium 40 mg/ 110 mls @ 330 mls/hr 11/11/23 10:00 11/12/23 10:27 Sodium Chloride IV Infused Q12 MARY Infusion Sodium Chloride 1,000 mls @ 15 mls/hr 11/12/23 12:00 IV .Q48H MARY Influenza Virus Vaccine 180 mcg 11/13/23 10:00 Flu Vaccine High Dose Tv 24-25 180 Mcg/0.5 Ml Syringe IM 11/13/23 10:01 .ONCE ONE Melatonin 3 mg 11/10/23 18:48 Melatonin 3 Mg Tablet PO QHS PRN PRN INSOMNIA Metoprolol Tartrate 50 mg 11/12/23 10:00 11/12/23 09:48 Metoprolol Tartrate 50 Mg Tablet PO 50 mg BID MARY Administration Protocol Pravastatin Sodium 40 mg 11/10/23 22:00 11/11/23 22:05 Pravastatin 40 Mg Tablet PO 40 mg QHS MARY Administration Senna/Docusate Sodium 2 tablet 11/10/23 18:48 Senna/Docusate Sodium 1 Tablet PO BID PRN PRN Constipation Sodium Chloride 10 - 40 ml 11/10/23 18:51 11/12/23 05:19 0.9% Saline Lock 10 Ml Syringe IV 10 ml UD PRN Administration SALINE FLUSH Warfarin Sodium 3 mg 11/11/23 17:00 Warfarin (Bkc) 3 Mg Tablet PO [facility] Medical History (Updated 11/12/23 @ 12:[address] Mauro Olivarez MD) History of CVA (cerebrovascular accident) (2009) Essential (primary) hypertension Left bundle branch block Nonrheumatic tricuspid (valve) insufficiency Secondary pulmonary hypertension History of idiopathic hypertrophic subaortic stenosis History of lower GI bleeding (10/26/15) Paroxysmal atrial fibrillation Nonrheumatic mitral (valve) insufficiency Hypertrophic cardiomyopathy Acute blood loss anemia Troponin I above reference range Aspiration pneumonia Hypotension Bleeding hemorrhoids Hyperlipidemia Tobacco use Vitamin B 12 deficiency Iron deficiency anemia Home Medications ?Medication ?Instructions ?Recorded ?Last Taken ?Type pravastatin 40 mg tablet 40 mg PO DAILY cholesterol 02/03/13 11/09/23 History metoprolol tartrate 50 mg tablet 50 mg PO BID #180 tabs 11/02/18 11/12/23 Rx warfarin 4 mg tablet 4 mg PO SUTUTH blood thinner 02/28/22 11/08/23 History ferrous sulfate 325 mg (65 mg 325 mg PO QODAY #30 tabs 03/01/22 11/10/23 Rx iron) tablet (FeroSul) furosemide 20 mg tablet 20 mg PO DAILY 11/10/23 11/08/23 History warfarin 3 mg tablet 3 mg PO MOWEFRSA 11/10/23 11/09/23 History Allergy/AdvReac Type Severity Reaction Status Date / Time verapamil Allergy Unknown Verified 11/12/23 11:50 Family History Mother Diabetes Heart disease Father Cancer Surgical History History of right and left heart catheterization (04/04/16) 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) Social History housing: house Smoking Status: Former smoker quit date: 01/09/17 pack-years: 24 Review of Systems (Anesthesia) ROS Narrative System reviewed and no additional complaints, except as documented.
--- NOTE | 2023-11-12 14:46 | PCM.POST.ANE ---
Anesthesia: Postop Eval I Current Vital Signs Temperature: 97 F Pulse Rate: 69 Blood Pressure: 106/46 Respiratory Rate: 14 Pulse Ox: 98 Oxygen Delivery Method: Room Air Assessment Airway patent: Yes Spontaneous unlabored respirations: Yes Mental status: Asleep nausea: No Vomiting: No Anesthesia Complication: No Fluid Hydration Crystalloid volume administer (ml): 800 Total IV fluid infused: 800 Progress Note Anesthesia document: Postop Eval 1 completed: Yes
--- NOTE | 2023-11-12 15:13 | PCM.POSTANE2 ---
Anesthesia Postop Eval I Sum Postop Eval Completion status Anesthesia document: Postop Eval 1 completed: Yes Anesthesia Postop Eval I Summary Anesthesia Postop Eval I Summary: Anesthesia Postop Eval I: Assessment Summary Airway patent Yes 11/12/23 14:47 [email or web address] Spontaneous unlabored Yes 11/12/23 14:47 [email or web address] respirations Mental status Asleep 11/12/23 14:47 [email or web address] nausea No 11/12/23 14:47 [email or web address] Vomiting No 11/12/23 14:47 [email or web address] Anesthesia Postop Eval I: Fluid Summary Crystalloid volume administer 800 11/12/23 14:47 [email or web address] (ml) Colloids volume administered ( ml) Blood Product volume administered (ml) Total IV fluid infused 800 11/12/23 14:47 [email or web address] Anesthesia Postop Eval I: Summary Notes Anesthesia Complication No 11/12/23 14:47 [email or web address] Anesthesia Complication Comment: Post-operative progress note Anesthesia: Postop Eval II Evaluation Mental status: Awake and Calm Pain Level: 0 nausea: No Vomiting: No Complications Anesthesia Complication: No
[2023-11-12 16:18] LABS: Hemoglobin 10.6 g/dL (12.0-15.0)
--- NOTE | 2023-11-12 16:26 | PCM.PN.HOSP ---
Reason for Visit Reason for Visit: Fatigue/lightheadedness/dizziness Subjective Subjective Abdominal pain is completely resolved. Patient states she feels much better since she has gotten blood. Waiting for colonoscopy and EGD today Objective Data Objective Data Vital Signs: Vital Signs Temp Pulse Resp BP Pulse Ox O2 Del Method 97.1 F L 79 16 128/68 H 95 Room Air 11/12/23 16:00 11/12/23 16:00 11/12/23 16:00 11/12/23 16:00 11/12/23 16:00 11/12/23 16:00 Oxygen Delivery Method Room Air Weight: 69.8 kg Body Mass Index (BMI) 31.1 Intake & Output: Intake and Output for Last 24 Hours 11/10/23 11/11/23 11/12/23 23:59 23:59 23:59 Intake Total 996.66 / 996.66 2547.33 / 2547.33 972.0 / 972.0 Balance 996.66 / 996.66 2547.33 / 2547.33 972.0 / 972.0 Lab / Micro Data 11/12/23 15:58 11/12/23 03:25 Labs: Laboratory Results - last 24 hr 11/11/23 08:52: Blood Type A POSITIVE, Antibody Screen NEGATIVE, Crossmatch See Detail 11/11/23 21:14: Hgb 10.7 L 11/12/23 03:25: WBC 7.7, RBC 3.39 L, Hgb 10.0 L, Hct 29.9 L, MCV 88.2 D, MCH 29.5, MCHC 33.4 D, RDW Std Deviation 48.4 H, RDW Coeff of Aubree 15.3 H, Plt Count 194, MPV 9.4, PT 17.2 H, INR 1.4, APTT 26.8, Sodium 141, Potassium 3.5, Chloride 112 H, Carbon Dioxide 25.0, Anion Gap 4 L, BUN 9, Creatinine 0.55, Estim Creat Clear Calc 51.85, Est GFR (MDRD) Af Amer 138, Est GFR (MDRD) Non-Af 114, BUN/Creatinine Ratio 16.3, Glucose 110 H, Calcium 8.1 L, Phosphorus 1.7 L, Magnesium 1.6, Total Bilirubin 1.80 H, AST 23, ALT 18, Alkaline Phosphatase 48, Total Protein 5.6 L, Albumin 2.8 L, Globulin 2.8, Albumin/Globulin Ratio 1.0, TSH 2.000 11/12/23 15:58: Hgb 10.6 L Micro: Microbiology 11/10/23 15:16 Urine, Clean Catch Urine Culture - Preliminary Klebsiella aerogenes 11/11/23 21:35 Stool Stool Occult Blood (AGGIE) - Final Occult Blood Positive Rhythm Strip Rhythm Strip: Sinus Rhythm Rate: 70 Ectopy: PVC(s) and - (Multiple episodes of 69 beats of VT. These were all asymptomatic) Physical Exam Const alert, oriented x3, no apparent distress and well nourished; Negative for average body habitus or healthy appearing Constitutional Narrative: Overweight, elderly, white female, sitting up in bed, appears much better than yesterday, does not appear toxic or uncomfortable HEENT head/scalp atraumatic and moist oral mucous membranes Head and Scalp: normocephalic Resp normal respiratory effort, no retractions, no use of accessory muscles and clear to auscultation bilaterally Auscultation: Negative for rales, rhonchi or wheezes Cardio regular rate, regular rhythm, S1 normal heart sound, S2 normal heart sound, no rub, no gallops and no clicks; Negative for no murmurs Cardio Narrative: 4 out of 6 systolic murmur GI normal to inspection, nondistended, normoactive bowel sounds, soft to palpation and non-tender Extremity no clubbing, cyanosis or edema Extremity Narrative: Radial and pedal pulses are 2+ Neuro oriented x3, moves all extremities and no focal motor deficits Speech: speech normal Psych affect normal Psych Narrative: Affect is no longer flat-suspect it was related to her feeling poorly Assessment & Plan Assessment/Plan (1) Light headedness: (2) Hypertrophic cardiomyopathy: (3) Acute on chronic anemia: (4) Abnormal urinalysis: (5) Dehydration: PLAN: Plan Lightheadedness/presyncope -Suspect related to volume depletion with dehydration/acute anemia/and HOCM with severe MR -Echocardiogram is pending--> and will be done tomorrow morning now that she is back missed doing it today due to endoscopic procedures -Monitor on telemetry -Transfused 3 units packed red blood cells on 11/11/2023 -hopefully will feel better once transfused as she is very preload dependent -Event monitor at discharge for 30 days Suspected GI bleed -Continue to hold Coumadin -Hemoglobin up to 10.6 and patient feeling much better -Continue Protonix until results of EGD are reported -Had EGD in February 2023 which demonstrated esophageal plaques consistent with candidiasis, large hiatal hernia and normal duodenum to the second portion -Biopsies were consistent with candidiasis and patient was treated with nystatin -N.p.o. in preparation for scopes -N.p.o. after midnight for hopeful scopes tomorrow -EGD and colonoscopy today -GI following-appreciate input Acute on chronic anemia -Patient appears to have a long history of anemia -8.2 on presentation but down to 6.5 on a.m. of 08/11/2023--> up to 10.6 after 3 units -Transfused 3 units on 11/11/2023 -Patient is much less symptomatic after transfusion -Suspect related to GI bleed as iron studies are consistent with iron deficiency -Treatment and workup as above -Continue home iron supplementation--> patient had not been compliant due to constipation -Repeat CBC in a.m. Hypophosphatemia -K-Phos bolus given -Repeat in a.m. H/O HCOM with MARIAN/3+MR -Previous myomectomy--> [address] Graves at -Cardiology is following to assist with management -Echocardiogram is pending and will be done tomorrow morning -Metoprolol 25 mg p.o. 3 times daily added to regimen -Patient does not desire any further surgical procedures -Will obtain echocardiogram after transfusion Chronic LBBB -Likely related to her hypertrophic cardiomyopathy -Previous catheterization in 2017 with minimal coronary disease noted at that time and normal right pulmonary pressures Paroxysmal atrial fibrillation -Highly suspect 17 beat run of wide-complex tachycardia noted on admission was A-fib with aberrancy -Continue to monitor on telemetry -Beta-heriberto as noted above -Coumadin on hold for now Abnormal UA -UA was suggestive of infection and urine culture was obtained however only showing 11,000-25,000 of Klebsiella -Patient was asymptomatic -Does not need treated for UTI however will remain on Cipro and Flagyl for diverticulitis Generalized weakness -Likely related to anemia in the setting of hypertrophic cardiomyopathy with MARIAN and 3+ mitral regurgitation -Echocardiogram is pending after transfusion -PT/OT eval -Case management/social work eval Diverticulitis -Mild diverticulitis noted on CT -Continue Cipro and Flagyl -Transition to Augmentin at discharge Essential HTN/HPL -Continue on pravastatin -Continue metoprolol -Hold Lasix DVT prophylaxis -Hold Coumadin until GI states we can restart -SCDs for now and could consider subcu Lovenox tomorrow depending on status after EGD and colonoscopy CODE STATUS -Full code as verified on admission Charges/Coding Visit Charges Inpatient E&M: 24072 Subs Hosp L2
[2023-11-12] MEDS: Ferrous Sulfate 325 MG Tablet PO (17:12)
[2023-11-12] MEDS: Pravastatin 40 MG Tablet PO (22:07)
[2023-11-13 03:26] VITALS: BMI 31.0
[2023-11-13 03:45] VITALS: BP 108/59; PULSE 75; RESP 16; TEMP 36.1; O2SAT 93
[2023-11-13] MEDS: metroNIDAZOLE 500 MG/100 ML BAG 100 MG IV (06:00)
[2023-11-13 07:29] LABS: Hematocrit 29.4 % (37-47); Hemoglobin 9.3 g/dL (12.0-15.0); Mean Corp Hgb Conc 31.6 g/dL (32-36); Mean Corpuscular Hgb 28.6 pg (27.0-32.0); Mean Corpuscular Volume 90.5 fL (81-99); Mean Platelet Vol. 9.5 fl (6.2-12.0); Platelet Count 183 K/mm3 (150-450); RBC Distribution Width CV 15.7 % (11.6-14.6); RBC Distribution Width SD 51.4 fl (35.1-43.9); Red Blood Count 3.25 M/mm3 (4.2-5.4); White Blood Count 5.9 K/mm3 (4.4-11.0)
[2023-11-13 08:07] LABS: Anion Gap 4 (5-15); BUN 7 mg/dL (7-18); BUN/Creat Ratio 11.3 RATIO (10-20); Calcium,Total 8.5 mg/dL (8.5-10.1); Chloride 114 mmol/L (98-107); Creatinine, Serum 0.62 mg/dL (0.55-1.02); EST Glomerular Filtration Rate 99 mL/min (>60); Est Glom Filt Rate - Afr Amer 120 mL/min (>60); Estimated Creatinine Clearance 52.93 ml/min; Glucose 114 mg/dL (74-106); Potassium 3.9 mmol/L (3.5-5.1); Sodium Level 142 mmol/L (136-145)
--- NOTE | 2023-11-13 09:12 | OP.EGD_ITS ---
Patient Name: Catrina Wang Procedure Date: 11/12/2023 2:38 PM Date of : 1950 Age: 73 Procedure: Upper GI endoscopy Indications: Functional Dyspepsia, Suspected esophageal reflux Providers: Jorje Blank DO Medicines: Monitored Anesthesia Care Patient Profile: This is a 73 year old female. Refer to note in patient chart for documentation of history and physical. Patient has symptoms. Complications: No immediate complications. Procedure: Pre-Anesthesia Assessment: - Prior to the procedure, a History and Physical was performed, and patient medications and allergies were reviewed. The patient is competent. The risks and benefits of the procedure and the sedation options and risks were discussed with the patient. All questions were answered and informed consent was obtained. Patient identification and proposed procedure were verified by the physician in the pre-procedure area. Mental Status Examination: alert and oriented. Airway Examination: normal oropharyngeal airway and neck mobility. Respiratory Examination: clear to auscultation. CV Examination: normal. Prophylactic Antibiotics: The patient does not require prophylactic antibiotics. Prior Anticoagulants: The patient has taken no anticoagulant or antiplatelet agents. ASA Grade Assessment: III - A patient with severe systemic disease. After reviewing the risks and benefits, the patient was deemed in satisfactory condition to undergo the procedure. The anesthesia plan was to use monitored anesthesia care (MAC). Immediately prior to administration of medications, the patient was re-assessed for adequacy to receive sedatives. The heart rate, respiratory rate, oxygen saturations, blood pressure, adequacy of pulmonary ventilation, and response to care were monitored throughout the procedure. The physical status of the patient was re-assessed after the procedure. After obtaining informed consent, the endoscope was passed under direct vision. Throughout the procedure, the patient's blood pressure, pulse, and oxygen saturations were monitored continuously. The Colonoscope was introduced through the mouth, and advanced to the second part of duodenum. The upper GI endoscopy was accomplished without difficulty. The patient tolerated the procedure well. Scope In: 2:08:50 PM Scope Out: 2:12:10 PM Total Procedure Duration Time 0 hours 3 minutes 20 seconds Findings: The examined esophagus was normal. Patchy mildly erythematous mucosa without bleeding was found in the gastric body. Biopsies were taken with a cold forceps for histology. Verification of patient identification for the specimen was done. Estimated blood loss was minimal. No gross lesions were noted in the duodenal bulb. Biopsies were taken with a cold forceps for histology. Verification of patient identification for the specimen was done. Estimated blood loss was minimal. Impression: - Normal esophagus. - Erythematous mucosa in the gastric body. Biopsied. - No gross lesions in the duodenal bulb. Biopsied. Recommendation: - Discharge patient to home. - Resume previous diet. - Continue present medications. - Await pathology results. Procedure Code(s): --- Professional --- 31985, Esophagogastroduodenoscopy, flexible, transoral; with biopsy, single or multiple CPT copyright 2021 [employer]. All rights reserved. The codes documented in this report are preliminary and upon ceo and founder review may be revised to meet current compliance requirements. Jorje Blank DO 11/13/2023 9:12:32 AM This report has been signed electronically. Number of Addenda: 0 Note Initiated On: 11/12/2023 2:38 PM
--- NOTE | 2023-11-13 09:13 | OP.CCLET_ITS ---
11/13/2023 Guille Zarate [address] [place] [address] Re : Upper GI endoscopy procedure for Catrina Wang Dear Dr. Zarate This procedure was performed on October. My impressions and recommendations are as follows: Impressions : - Normal esophagus. - Erythematous mucosa in the gastric body. Biopsied. - No gross lesions in the duodenal bulb. Biopsied. Recommendations : - Discharge patient to home. - Resume previous diet. - Continue present medications. - Await pathology results. My findings are described in the full procedure note, which is enclosed. If I can be of further assistance, please feel free to contact me at . Sincerely, Jorje Blank, 11/13/2023 9:12:32 AM This report has been signed electronically.
--- NOTE | 2023-11-13 09:21 | OP.COLON_ITS ---
Patient Name: Catrina Wang Procedure Date: 11/12/2023 1:54 PM Date of : 1950 Age: 73 Procedure: Colonoscopy Indications: Screening for colorectal malignant neoplasm Providers: Jorje Blank DO Medicines: Monitored Anesthesia Care Patient Profile: This is a 73 year old female. Refer to note in patient chart for documentation of history and physical. Last Colonoscopy: date unknown. Unable to locate last colonoscopy report. Complications: No immediate complications. Procedure: Pre-Anesthesia Assessment: - Prior to the procedure, a History and Physical was performed, and patient medications and allergies were reviewed. The patient is competent. The risks and benefits of the procedure and the sedation options and risks were discussed with the patient. All questions were answered and informed consent was obtained. Patient identification and proposed procedure were verified by the physician in the pre-procedure area. Mental Status Examination: alert and oriented. Airway Examination: normal oropharyngeal airway and neck mobility. Respiratory Examination: clear to auscultation. CV Examination: normal. Prophylactic Antibiotics: The patient does not require prophylactic antibiotics. Prior Anticoagulants: The patient has taken no anticoagulant or antiplatelet agents. ASA Grade Assessment: II - A patient with mild systemic disease. After reviewing the risks and benefits, the patient was deemed in satisfactory condition to undergo the procedure. The anesthesia plan was to use monitored anesthesia care (MAC). Immediately prior to administration of medications, the patient was re-assessed for adequacy to receive sedatives. The heart rate, respiratory rate, oxygen saturations, blood pressure, adequacy of pulmonary ventilation, and response to care were monitored throughout the procedure. The physical status of the patient was re-assessed after the procedure. After I obtained informed consent, the scope was passed under direct vision. Throughout the procedure, the patient's blood pressure, pulse, and oxygen saturations were monitored continuously. The Colonoscope was introduced through the anus and advanced to the terminal ileum. The colonoscopy was performed without difficulty. The patient tolerated the procedure well. The quality of the bowel preparation was adequate. The ileocecal valve, appendiceal orifice, and rectum were photographed. Scope In: 2:14:58 PM Scope Withdrawal Time 0 hours 17 minutes 17 seconds Scope Out: 2:37:31 PM Total Procedure Duration Time 0 hours 22 minutes 33 seconds Findings: The perianal and digital rectal examinations were normal. Multiple small and large-mouthed diverticula were found in the recto-sigmoid colon and sigmoid colon. Three sessile polyps were found in the cecum. The polyps were 10 mm in size. These polyps were removed with a hot snare. Resection and retrieval were complete. Verification of patient identification for the specimen was done. Estimated blood loss was minimal. These polyps were removed with a hot snare. Resection and retrieval were complete. A single (solitary) ten mm ulcer was found in the ascending colon. Oozing was present. Stigmata of recent bleeding were present. Coagulation for hemostasis using heater probe was successful. Estimated blood loss was minimal. The terminal ileum appeared normal. This was biopsied with a hot large-capacity forceps for histology. This was biopsied with a cold forceps for histology. Verification of patient identification for the specimen was done [Identifiers]. Impression: - Diverticulosis in the recto-sigmoid colon and in the sigmoid colon. - No specimens collected. Recommendation: - No recommendation at this time regarding repeat colonoscopy due to age. - Continue present medications. Procedure Code(s): --- Professional --- 17232, 59, Colonoscopy, flexible; with control of bleeding, any method 47786, Colonoscopy, flexible; with removal of tumor(s), polyp(s), or other lesion(s) by snare technique 77761, 59, Colonoscopy, flexible; with removal of tumor(s), polyp(s), or other lesion(s) by hot biopsy forceps CPT copyright 2021 [employer]. All rights reserved. The codes documented in this report are preliminary and upon carpet floor layer apprentice review may be revised to meet current compliance requirements. Jorje Blank DO 11/13/2023 9:20:48 AM This report has been signed electronically. Number of Addenda: 0 Note Initiated On: 11/12/2023 1:54 PM
--- NOTE | 2023-11-13 09:21 | OP.CCLET_ITS ---
11/13/2023 Guille Zarate [address] [place] [address] Re : Colonoscopy procedure for Catrina Wang Dear Dr. Zarate This procedure was performed on October. My impressions and recommendations are as follows: Impressions : - Diverticulosis in the recto-sigmoid colon and in the sigmoid colon. - No specimens collected. Recommendations : - No recommendation at this time regarding repeat colonoscopy due to age. - Continue present medications. My findings are described in the full procedure note, which is enclosed. If I can be of further assistance, please feel free to contact me at . Sincerely, Jorje Blank, 11/13/2023 9:20:48 AM This report has been signed electronically.
[2023-11-13 09:45] VITALS: BP 142/72; PULSE 85; RESP 16; TEMP 36.7; O2SAT 94
[2023-11-13 10:08] VITALS: BP 142/72; PULSE 85
[2023-11-13] MEDS: Metoprolol Tartrate 50 MG Tablet PO (10:08)
[2023-11-13] MEDS: Ciprofloxacin 400 MG/200 ML BAG 200 MG IV (10:10)
[2023-11-13] MEDS: Pantoprazole Sodium 40 MG in 0.9% Normal Saline (100mL MB+) 100 ML 330 MG IV (11:06)
--- NOTE | 2023-11-13 13:02 | DS.PCM_ITS ---
Providers Date of Admission: 11/11/23 Date of Discharge: 11/13/23 Primary Care Physician: Dr. Guille Zarate MD Consultations 11/11/23 07:52 Consult: Cardiology Routine Consulting Provider: Hua Gilbert Reason for Consult: wide complex tachycardia with associated presyncope and HOCM EMERGENT Consult: No Notified: Yes Date Notified: 11/11/23 Time Notified: 07:52 Method of Notification: Verbal 11/11/23 08:40 Consult: Gastroenterology Routine Consulting Provider: [facility] Reason for Consult: Acute GIB EMERGENT Consult: No Notified: Yes Date Notified: 11/11/23 Time Notified: 08:41 Method of Notification: Text Reason For Visit: WEAKNESS, LIGHT HEADEDNESS, ANEMIA Diagnosis Discharge Diagnosis (1) Light headedness: Status: Acute Code(s): R42 - Dizziness and giddiness (2) Hypertrophic cardiomyopathy: Status: Chronic Code(s): I42.2 - Other hypertrophic cardiomyopathy (3) Acute on chronic anemia: Status: Chronic Code(s): D64.9 - Anemia, unspecified (4) Abnormal urinalysis: Status: Acute Code(s): R82.90 - Unspecified abnormal findings in urine (5) Dehydration: Status: Acute Code(s): E86.0 - Dehydration Plan Medications at Discharge Home Medications pravastatin 40 mg tablet 40 mg PO DAILY cholesterol 02/03/13 metoprolol tartrate 50 mg tablet 50 mg PO BID #180 tabs 11/02/18 warfarin 4 mg tablet 4 mg PO SUTUTH blood thinner 02/28/22 ferrous sulfate 325 mg (65 mg iron) tablet (FeroSul) 325 mg PO QODAY #30 tabs 03/01/22 warfarin 3 mg tablet 3 mg PO MOWEFRSA 11/10/23 ciprofloxacin HCl 500 mg tablet (Cipro) 500 mg PO BID #7 tabs 11/13/23 metronidazole 500 mg tablet 500 mg PO Q8H #21 tabs 11/13/23 Hospital Course Operations None Procedures 2-D Echocardiogram, Blood transfusion, Colonoscopy, EGD and EKG Summary of Care Provided Minutes Spent on Discharge: 39 Hospital Course: Mrs. Wang is a 73-year-old white female who presented to the emergency department at [facility] on 11/11/2023 with multiple complaints including and predominantly lightheadedness, dizziness, and intermittent abdominal pain. Patient reported that she has been feeling generally unwell for the last several months and having a lot of weakness and dizziness along with lightheaded spells that are occasionally noted with standing or bending but sometimes a trigger is not noted. She also complained of lower abdominal pain and that has been going on for the past several months without diarrhea. She had a little bit of nausea earlier in the day prior to presentation but no emesis. She reports having dark stools for a few weeks but is on iron so she was unclear of the significance. She did have an admission here in February for which an EGD was performed but no source of bleeding was found at that time. No follow-up colonoscopy was pursued. She does have a history of atrial fibrillation and is on chronic Coumadin. Upon review of records this morning, I did find an echo from 2019 that was done which was done for history of hypertrophic cardiomyopathy status post myomectomy. Her LV was noted to be small and there was severe LVH with an EF of 70 to 75%, the RV was normal, the left atrial cavity was mildly dilated and there was moderate mitral valve regurgitation likely related to her hokum with MARIAN she was noted to be status post myomectomy with an LVOT gradient at rest of 74 mmHg and MARIAN with 3+ MR and no change with Valsalva. This was compared to an echocardiogram that was done in 2018 and showed no significant change. She evidently has not seen a cardiology consultant since 2019. Orthostatic vitals were negative and presentation, temperature was 97.9, heart rate 80, respiratory rate was 18, blood pressure was 123/53 and pulse ox was 100% on room air. While the hospitalist was admitting her a 17 beat run of wide-complex tachycardia was noted. Her CBC showed a normal white count however she did have a hemoglobin of 8.2. Earlier in October on 10/23/2023 her hemoglobin was 7.4. Patient refused rectal exam to assess for Hemoccult. Coags were elevated with an INR of 2.7 as she is on Coumadin at baseline. Her chemistry panel was overall underwhelming other than some mild dehydration with a BUN of 27 and serum creatinine of 1.12 with a baseline serum creatinine of 0.6-0.8. Glucose was 162. Liver functions were unremarkable. Iron studies were obtained and are consistent with iron deficiency. Her BNP was elevated at 373.9 and likely related to the above hold on. TSH was normal. A UA was obtained and she did appear to be dehydrated with a specific gravity of 0.25. She did have some occult blood, leuk esterase, white cells and 3+ bacteria so urine culture was sent and she was started on ceftriaxone. Repeat hemoglobin on 11/11/2023 noted a precipitous drop in her hemoglobin from 8.2-6.5 and she was given 3 units of packed red blood cells. We repeated that hemoglobin and her hemoglobin dropped below 7.0 so 3 units of packed red blood cells were ordered and transfused. GI was consulted as well as cardiology. Ultimately, we suspect her symptoms are a combination of her severe hypertrophic cardiomyopathy with left ventricular outflow obstruction in combination with her severe anemia. She did feel better after we treated her anemia and GI took her for both colonoscopy and EGD. EGD demonstrated normal esophagus with some erythematous mucosa changes in the gastric body that were biopsied and no gross lesions in the duodenal bulb. Colonoscopy demonstrated diverticulosis in the rectosigmoid colon and a single solitary 10 mm ulcer in the ascending colon that was oozing. It was treated via coagulation for hemostasis using heater probe and on reevaluation after treatment bleeding had ceased. Per discussion with cardiology will go ahead and hold her Coumadin at the time of discharge. We did discuss that holding her Coumadin increases her risk of stroke however at this time risk is greater than benefit. Her hemoglobin ultimately should stay between 9 and 10 to optimize her hemodynamics with her severe HOCM and MARIAN. She had some intermittent ventricular tachycardia which improved when we corrected her hemoglobin. We will discontinue her diuretics and this should be avoided at this time because she is very preload dependent with her severe LVTO. She will need to follow-up with outpatient gastroenterology and has been advised to do so for capsule endoscopy. We will hold her Coumadin until she is otherwise instructed by cardiology and GI. I have asked that she obtain a repeat CBC in the next 5 to 7 days to reassess her hemoglobin. If her hemoglobin does not fact drop below 9 she probably should be transfused with a goal hemoglobin for her between 9 and 10. I will have her continue her home iron. Her UA was abnormal however cultures were unremarkable with no growth suggestive of infection. Patient was asymptomatic with out urinary symptoms. She was also found to have mild diverticulitis on the CT on admission so we will continue Cipro and Flagyl at the time of discharge for another 7 days of treatment. She will follow-up with cardiology here and I have also discussed with her primary care physician's office that she will need an outpatient EP follow-up at [facility]. The patient states she does have an upcoming appointment with [facility] cardiology however she is unclear if it is EP or not but this appointment is not until April 2024. She will need to be evaluated for possible placement of ICD given her intermittent short runs of VT during her hospitalization. Patient was discharged home in stable condition on 11/13/2023. Discharge diagnoses: Lightheadedness/presyncope-resolved GI bleed secondary to colon ulceration-resolved Acute on chronic anemia status post 3 units packed red blood cells Hypophosphatemia-resolved History of hokum with MARIAN/3+ MR Chronic LBBB Paroxysmal atrial fibrillation Generalized weakness Acute diverticulitis Essential hypertension Hyperlipidemia Physical Exam Const alert, oriented x3, no apparent distress, no limitations and well nourished; Negative for average body habitus or healthy appearing Constitutional Narrative: Overweight, elderly, white female, sitting up in bed, appears well today, nontoxic, appears comfortable General Appearance: cooperative, comfortable, well kempt and well developed Orientation / Consciousness: awake, oriented to person, oriented to place and oriented to time Exam Limitations: no limitations Nutritional Appearance: obese HEENT normocephalic, head/scalp atraumatic, hearing grossly normal bilaterally and moist oral mucous membranes HEENT Narrative: Mallampati 3, no thrush Eyes PERRL and EOMs intact bilaterally Eyes Narrative: Decreased conjunctiva pallor, no scleral icterus Neck no lymphadenopathy and supple Neck Narrative: Trachea midline, no thyroid enlargement Resp normal respiratory effort, no retractions, no use of accessory muscles and clear to auscultation bilaterally Auscultation: Negative for rales, rhonchi or wheezes Cardio regular rate, regular rhythm, S1 normal heart sound, S2 normal heart sound, no rub, no gallops and no clicks; Negative for no murmurs Cardio Narrative: 4 out of 6 systolic murmur, murmur increase with Valsalva GI normal to inspection, nondistended, normoactive bowel sounds, soft to palpation and non-tender Extremity no clubbing, cyanosis or edema Extremity Narrative: Radial and pedal pulses are 2+ Skin no rashes or lesions noted, no wounds, skin turgor normal and no jaundice Skin Narrative: Color is improved with transfusion Neuro oriented x3, moves all extremities and no focal motor deficits Speech: speech normal Psych affect normal Psych Narrative: Very pleasant, interacts appropriately Weight / BMI Weight Weight: 69.7 kg Body Mass Index (BMI) 31.0 ABG / Lab / Microbiology Data 11/13/23 06:56 11/13/23 06:56 Laboratory: Laboratory Results - last 24 hr 11/12/23 15:58: Hgb 10.6 L 11/13/23 06:56: WBC 5.9, RBC 3.25 L, Hgb 9.3 L, Hct 29.4 L, MCV 90.5, MCH 28.6, MCHC 31.6 L D, RDW Std Deviation 51.4 H, RDW Coeff of Aubree 15.7 H, Plt Count 183, MPV 9.5, Sodium 142, Potassium 3.9, Chloride 114 H, Carbon Dioxide 24.0, Anion Gap 4 L, BUN 7, Creatinine 0.62, Estim Creat Clear Calc 52.93, Est GFR (MDRD) Af Amer 120, Est GFR (MDRD) Non-Af 99, BUN/Creatinine Ratio 11.3, Glucose 114 H, Calcium 8.5 Microbiology: Microbiology 11/10/23 15:16 Urine, Clean Catch Urine Culture - Final Klebsiella aerogenes 11/11/23 21:35 Stool Stool Occult Blood (AGGIE) - Final Occult Blood Positive Radiography Diagnostic Testing: Radiology Impression Echocardiogram 11/10/23 18:05 Interpretation Summary Normal LV size. Left ventricular systolic function is normal. The left ventricular ejection fraction is 65 %. Severe eccentric left ventricular hypertrophy. Mid cavitary dynamic gradient 144 mm/Hg. Systolic anterior motion of the mitral valve. Contrast injection was performed. Ordering Physician: Chani Philippe Referring Physician: MD Elliot Guille Performed By: Edith Lynn RDCS Meaningful Use Info Meaningful Use Meaningful Use Diagnoses (Choose all that apply): None applicable Ischemic Stroke Statin Dosing Therapy Reference: STATIN DOSE THERAPY REFERENCE: * Patients > 75 years receive moderate or high dose statin therapy. * Patients 75 years or YOUNGER should receive HIGH intensity statin dose unless contraindicated. You will be required to document reason for non-treatment if statin daily dose does not meet guidelines. HIGH DOSE STATIN THERAPY DAILY Atorvastatin > than or = to 40 mg Rosuvastatin > than or = to 20 mg Amlodipine + Atorvastatin > than or = to 2.5/40 mg Ezetimibe + Simvastatin 10/80 mg Simvastatin 80mg Discharge Plan Admission Admit Date/Time: 11/11/23 13:05 Primary Reason for Your Visit: fatigue/lightheadedness/dizziness/intermittent abdominal pain Attending Provider: Latosha Mathew Primary Care Provider: Guille Zarate Consulting Providers: Chani Philippe; Hua Gilbert Discharge Orders/Prescriptions Prescriptions: New ciprofloxacin HCl [Cipro] 500 mg tablet 500 mg PO BID Qty: 7 0RF metronidazole 500 mg tablet 500 mg PO Q8H Qty: 21 0RF Continued metoprolol tartrate 50 mg tablet 50 mg PO BID Qty: 180 3RF Held warfarin 4 mg tablet 4 mg PO SUTUTH Hold Instructions: until started Rx Instructions: PT STATES SHE IS TO TAKE 4 MG QD EXCEPT ON FRIDAYS SHE IS TO TAKE 2 MG. warfarin 3 mg tablet 3 mg PO MOWEFR Hold Instructions: hold until instructed otherwise Discontinued furosemide 20 mg tablet 20 mg PO DAILY No Action pravastatin 40 MG tablet 40 mg PO DAILY Patient Comments: CHOLESTEROL ferrous sulfate [FeroSul] 325 mg (65 mg iron) tablet 325 mg PO QODAY Qty: 30 1RF Referrals / Follow Up: Guille Zarate MD [Primary Care Provider] - Hua Gilbert MD [Med Staff - Active Staff] - See Referral Note (Office should call you with an appt if not within the next week please call and make an appt) Jorje Blank DO [Med Staff - Active Staff] - 12/04/23 10:00 am (Appointment will be with LIZZETH Jacinto in Dr. Romero office. ) Disposition Disposition (needs filled in before D/C Order can be placed): Home, Self Care Charges/Coding Visit Charges Inpatient E&M: 47307 Disch Hosp >30min
[2023-11-13 14:00] VITALS: BP 142/72; PULSE 85; RESP 16; TEMP 36.7; O2SAT 94
--- NOTE | 2023-11-13 17:39 | EX.PCM.PN.GI ---
Subjective Subjective Patient is status post EGD and colonoscopy with findings of large colonic ulcer. Objective Data Objective Data Vital Signs: Vital Signs Temp Pulse Resp BP Pulse Ox O2 Del Method 98.1 F 85 16 142/72 H 94 Room Air 11/13/23 14:00 11/13/23 14:00 11/13/23 14:00 11/13/23 14:00 11/13/23 14:00 11/13/23 14:00 Oxygen Delivery Method Room Air Weight: 153 lb 10.595 oz Body Mass Index (BMI) 31.0 Intake & Output: Intake and Output for Last 24 Hours 11/11/23 11/12/23 11/13/23 23:59 23:59 23:59 Intake Total 2547.33 / 2547.33 1525.5 / 1525.5 520 / 520 Balance 2547.33 / 2547.33 1525.5 / 1525.5 520 / 520 Lab / Micro Data 11/13/23 06:56 11/13/23 06:56 Labs: Laboratory Results - last 24 hr 11/13/23 06:56: WBC 5.9, RBC 3.25 L, Hgb 9.3 L, Hct 29.4 L, MCV 90.5, MCH 28.6, MCHC 31.6 L D, RDW Std Deviation 51.4 H, RDW Coeff of Aubree 15.7 H, Plt Count 183, MPV 9.5, Sodium 142, Potassium 3.9, Chloride 114 H, Carbon Dioxide 24.0, Anion Gap 4 L, BUN 7, Creatinine 0.62, Estim Creat Clear Calc 52.93, Est GFR (MDRD) Af Amer 120, Est GFR (MDRD) Non-Af 99, BUN/Creatinine Ratio 11.3, Glucose 114 H, Calcium 8.5 Micro: Microbiology 11/10/23 15:16 Urine, Clean Catch Urine Culture - Final Klebsiella aerogenes 11/11/23 21:35 Stool Stool Occult Blood (AGGIE) - Final Occult Blood Positive Radiography Diagnostic Testing: Radiology Impression Echocardiogram 11/10/23 18:05 Interpretation Summary Normal LV size. Left ventricular systolic function is normal. The left ventricular ejection fraction is 65 %. Severe eccentric left ventricular hypertrophy. Mid cavitary dynamic gradient 144 mm/Hg. Systolic anterior motion of the mitral valve. LVOT dynamic gradient 156 m/sec. Apical hypokinesis Contrast injection was performed. Ordering Physician: Chani Philippe Referring Physician: MD Elliot Guille Performed By: Edith Lynn RDCS Rhythm Strip Rhythm Strip: Sinus Rhythm Rate: 70 Ectopy: PVC(s) and - (Multiple episodes of 69 beats of VT. These were all asymptomatic) Physical Exam Const alert, oriented x3, no apparent distress, no limitations and well nourished; Negative for average body habitus or healthy appearing Constitutional Narrative: Overweight, elderly, white female, sitting up in bed, appears well today, nontoxic, appears comfortable General Appearance: cooperative, comfortable, well kempt and well developed Orientation / Consciousness: awake, oriented to person, oriented to place and oriented to time Exam Limitations: no limitations Nutritional Appearance: obese HEENT normocephalic, head/scalp atraumatic, hearing grossly normal bilaterally and moist oral mucous membranes HEENT Narrative: Mallampati 3, no thrush Eyes PERRL and EOMs intact bilaterally Eyes Narrative: Decreased conjunctiva pallor, no scleral icterus Neck no lymphadenopathy and supple Neck Narrative: Trachea midline, no thyroid enlargement Resp normal respiratory effort, no retractions, no use of accessory muscles and clear to auscultation bilaterally Auscultation: Negative for rales, rhonchi or wheezes Cardio regular rate, regular rhythm, S1 normal heart sound, S2 normal heart sound, no rub, no gallops and no clicks; Negative for no murmurs Cardio Narrative: 4 out of 6 systolic murmur, murmur increase with Valsalva GI normal to inspection, nondistended, normoactive bowel sounds, soft to palpation and non-tender Extremity no clubbing, cyanosis or edema Extremity Narrative: Radial and pedal pulses are 2+ Skin no rashes or lesions noted, no wounds, skin turgor normal and no jaundice Skin Narrative: Color is improved with transfusion Neuro oriented x3, moves all extremities and no focal motor deficits Speech: speech normal Psych affect normal Psych Narrative: Very pleasant, interacts appropriately Assessment & Plan Assessment/Plan (1) Light headedness: (2) Hypertrophic cardiomyopathy: (3) Acute on chronic anemia: (4) Abnormal urinalysis: (5) Dehydration: PLAN: Plan 73-year-old with lightheadedness/presyncope -Suspect related to volume depletion with dehydration/acute anemia/and HOCM with severe MR -Echocardiogram is pending--> and will be done tomorrow morning now that she is back missed doing it today due to endoscopic procedures -Monitor on telemetry -Transfused 3 units packed red blood cells on 11/11/2023 Suspected GI bleed -Continue to hold Coumadin -Hemoglobin up to 10.6 and patient feeling much better -Continue Protonix until results of EGD are reported -Had EGD in February 2023 which demonstrated esophageal plaques consistent with candidiasis, large hiatal hernia and normal duodenum to the second portion -Biopsies were consistent with candidiasis and patient was treated with nystatin -She had a colonoscopy which showed large ulcer in the cecum that was treated endoscopically and she also had 2 adenomatous polyps that was removed. Hemoglobin seems to be stable. She will need outpatient capsule study. Acute on chronic anemia -Patient appears to have a long history of anemia -8.2 on presentation but down to 6.5 on a.m. of 08/11/2023--> up to 10.6 after 3 units -Transfused 3 units on 11/11/2023 -Patient is much less symptomatic after transfusion -Suspect related to GI bleed as iron studies are consistent with iron deficiency -Treatment and workup as above -Continue home iron supplementation--> patient had not been compliant due to constipation -Repeat CBC in a.m. Charges/Coding Visit Charges Inpatient E&M: 13828 Subs Hosp L3
== END 2023-11-13 14:20 | disposition home or self-care (01) | DRG 378 ==
LOC: ED 15:08 → PCU 18:10
PROVIDERS: Anesthesiology; Internal Medicine Gastroenterology; Admitting Provider Internal Medicine; Emergency Provider Emergency Medicine; PCP Family Medicine; Visit Provider Internal Medicine
PROC: 0DJD8ZZ Inspection of Lower Intestinal Tract, Via Natural or Artificial Opening Endoscopic (ICD-10-PCS; CPT 45378; principal; 2023-11-12 12:25)
DX: K92.2 Gastrointestinal hemorrhage, unspecified (principal); N17.9 Acute kidney failure, unspecified; K63.3 Ulcer of intestine; D68.32 Hemorrhagic disorder due to extrinsic circulating anticoagulants; I47.20 Ventricular tachycardia, unspecified; I42.2 Other hypertrophic cardiomyopathy; D62 Acute posthemorrhagic anemia; B37.9 Candidiasis, unspecified; I48.0 Paroxysmal atrial fibrillation; I10 Essential (primary) hypertension; D12.0 Benign neoplasm of cecum; I25.10 Atherosclerotic heart disease of native coronary artery without angina pectoris; E78.5 Hyperlipidemia, unspecified; I44.7 Left bundle-branch block, unspecified; K57.50 Diverticulosis of both small and large intestine without perforation or abscess without bleeding; K31.89 Other diseases of stomach and duodenum; E66.3 Overweight; Z79.899 Other long term (current) drug therapy; Z79.01 Long term (current) use of anticoagulants; Z87.891 Personal history of nicotine dependence; Z86.16 Personal history of COVID-19; Z86.73 Personal history of transient ischemic attack (TIA), and cerebral infarction without residual deficits; Z68.29 Body mass index [BMI] 29.0-29.9, adult
CPT/HCPCS: 36415; 71046; 74177; 80048; 80053; 81001; 82274; 82607; 82728; 83540; 83550; 83735; 83880; 84100; 84443; 84484; 85018; 85025; 85027; 85610; 85730; 86850; 86900; 86901; 86920; 86922; 87077; 87086; 87088; 87186; 88305; 93005; 93308; 99285; J7030; J7040; J7050; P9016; Q9957; Q9967; A4216; C8924; J0744; J2405; J3490

== ENCOUNTER 2024-07-14 19:26 | Emergency (ER) | payer MEDICARE, SELFPAY ==
[2024-07-14 19:27] VITALS: BP 132/98; PULSE 93; RESP 16; TEMP 36.9; O2SAT 96
[2024-07-14 19:29] VITALS: BMI 30.9
--- NOTE | 2024-07-14 19:58 | EX.ED.DYSGE1 ---
HPI History of Present Illness Chief Complaint: Cold Sx Informant: patient Onset/Context/Timing Onset: Weeks (1) Context: Gradual Onset Timing: Continuous Quality: Dull Location: Right ear, right shoulder Worsened by: Movement Relieved by: Nothing Narrative Narrative: Patient presents with cough, congestion, shortness of breath, and fever that has been getting worse with worse over the past week. Patient states she had a high fever at home. Patient states she has had a moist cough but has not been able to produce any sputum. Patient states she feels short of breath. Patient states this is worse with any exertion. Patient also admits to some right ear pain and swelling. Patient denies any chest pain or palpitations. [facility] Medical History History of CVA (cerebrovascular accident) (2009) Essential (primary) hypertension Left bundle branch block Nonrheumatic tricuspid (valve) insufficiency Secondary pulmonary hypertension History of idiopathic hypertrophic subaortic stenosis History of lower GI bleeding (10/26/15) Paroxysmal atrial fibrillation Nonrheumatic mitral (valve) insufficiency Hypertrophic cardiomyopathy Acute blood loss anemia Troponin I above reference range Aspiration pneumonia Hypotension Bleeding hemorrhoids Hyperlipidemia Tobacco use Vitamin B 12 deficiency Iron deficiency anemia Home Medications ?Medication ?Instructions ?Recorded ?Last Taken ?Type pravastatin 40 mg tablet 40 mg PO DAILY cholesterol 02/03/13 11/09/23 History metoprolol tartrate 50 mg tablet 50 mg PO BID #180 tabs 11/02/18 11/12/23 Rx ferrous sulfate 325 mg (65 mg 325 mg PO QODAY #30 tabs 03/01/22 11/10/23 Rx iron) tablet (FeroSul) amoxicillin 875 mg-potassium 875 mg PO Q12H #20 TABLETS 07/14/24 Unknown Rx clavulanate 125 mg tablet warfarin 3 mg tablet 3 - 4 mg PO DAILY 07/14/24 Unknown History Allergy/AdvReac Type Severity Reaction Status Date / Time verapamil Allergy Unknown Verified 07/14/24 19:27 Family History Mother Diabetes Heart disease Father Cancer Surgical History History of right and left heart catheterization (04/04/16) 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) Social History household members: spouse and other housing: house number of children: 4 (grandkids) Smoking Status: Former smoker quit date: 01/09/17 pack-years: 24 ROS ROS ED Constitutional Constitutional ED: Reports fever(s); Denies chills Eyes Eyes: Denies blurry vision or change in vision ENT ENT ED: Reports ear pain right; Denies rhinorrhea or sore throat Cardiovascular Cardiovascular: Denies chest pain or palpitations Respiratory/Chest Respiratory/Chest: Reports cough and dyspnea Gastrointestinal Gastrointestinal: Denies nausea or vomiting Genitourinary Genitourinary ED: Denies dysuria or hematuria Musculoskeletal Musculoskeletal: Denies back pain or neck pain Integumentary Denies abscess or rash Neurologic Neurologic: Denies headache(s) or weakness Allergic/Immunologic Allergic/Immunologic ED: Denies mouth swelling or urticaria EXAM Physical Exam Const Vital Signs: 07/14/24 19:27 07/14/24 21:26 Temperature 98.5 F Temperature Source Oral Pulse Rate 93 89 Respiratory Rate 16 16 Blood Pressure 132/98 H 147/106 H Blood Pressure Mean 109 119 Pulse Ox 96 95 Oxygen Delivery Method Room Air Room Air Positive well nourished and well developed Constitutional Narrative: BMI is 31.0 General Appearance ED: well developed and NAD HEENT Reports moist mucous membranes HEENT Narrative: The right pinna has some mild erythema. There is a soft tissue mass on the external surface of the right ear. There is mild tenderness. There is no discharge or drainage. Neck supple and no JVD Resp normal respiratory effort Auscultation: rhonchi right upper and right lower and wheezes expiratory wheezes and scattered wheezes Cardio regular rate and regular rhythm GI non-tender and non-distended Palpation: soft Neuro oriented x3, CN's II-XII intact bilaterally and no sensory deficits noted Sensorium / Orientation: alert Motor Exam: strength 5/5 throughout Psych mental status grossly normal MDM MDM MDM Narrative Medical decision making narrative: Differential diagnosis includes pneumonia, bronchitis, upper respiratory infection, electrolyte abnormality, congestive heart failure, and urinary tract infection. Chest x-ray will be obtained to assess for pneumonia and bronchitis. COVID-19, influenza, and RSV PCR will be obtained to assess for viral illness. CBC will be obtained to assess for leukocytosis and anemia. Basic metabolic profile will be obtained to assess for electrolyte abnormality and renal function. Urinalysis will be obtained to assess for urinary tract infection and hematuria. Lab Data Attestation: I reviewed the patient's lab results. Lab results narrative: CBC was reviewed and was essentially within normal limits. Basic metabolic profile was reviewed and was essentially within normal limits. Urinalysis was reviewed. Leukocyte esterase was 500 with 5-10 white blood cells and 5-10 epithelial cells. There is 1+ bacteria. COVID-19 PCR was reviewed and was negative. Influenza PCR was reviewed and was negative for influenza A and influenza B. RSV PCR was reviewed and was negative. Labs: Laboratory Results - last 24 hr 07/14/24 07/14/24 20:34 21:00 WBC 6.5 RBC 4.05 L Hgb 12.6 Hct 36.3 L MCV 89.6 MCH 31.1 MCHC 34.7 RDW Std Deviation 39.4 RDW Coeff of Aubree 12.2 Plt Count 170 MPV 9.8 Immature Gran % (Auto) 0.300 Neut % (Auto) 73.0 H Lymph % (Auto) 15.0 L [place] % (Auto) 10.6 H Eos % (Auto) 0.8 Baso % (Auto) 0.3 Absolute Neuts (auto) 4.8 Absolute Lymphs (auto) 0.98 Nucleated RBC % 0 Sodium 139 Potassium 4.2 Chloride 104 Carbon Dioxide 24.4 Anion Gap 11 BUN 10 Creatinine 0.72 Est GFR (MDRD) Non-Af 87 BUN/Creatinine Ratio 13.3 Glucose 114 H Calcium 9.0 Urine Color Yellow Urine Clarity Sl. Cloudy Urine pH 8.0 Ur Specific [place] 1.015 Urine Protein 15 H Urine Glucose (UA) Normal Urine Ketones Negative Urine Occult Blood 10 H Urine Nitrite Negative Urine Bilirubin Negative Urine Urobilinogen 1 H Ur Leukocyte Esterase 500 H Urine RBC 0 SEEN Urine WBC 5-10 SEEN Ur Squamous Epith Cells 5-10 SEEN Urine Bacteria 1+ Urine Mucus 0 SEEN Radiography Chest X-Ray - ED: 2 View, Read by ED Physician, Read by Radiologist and No Acute Disease Diagnostic Testing: Clinical Impression(s) from Imaging Studies Chest X-Ray 07/14/24 20:35 IMPRESSION: NO ACUTE FINDINGS. Reading Location: [facility] [place] and lateral chest x-ray was obtained. There are 2 views. On my independent interpretation, lung gomez are clear. There is normal cardiac silhouette. Bony thorax is normal. There is no acute process noted. Radiologist also interpreted the x-ray and agrees. Treatment and Re-Evaluation :: Patient is feeling better on reevaluation. Patient was advised of her findings. Patient was ambulated in the emergency department with a pulse oximeter. Patient was given a dose of Augmentin here. Patient was given a prescription for Augmentin. Patient was instructed to continue with Tylenol and ibuprofen as needed for any pain or fevers. Patient was instructed to follow-up with her primary care physician in 5 to 7 days. Patient understood and was agreeable with the plan. All questions were answered. Discharge Plan Triage Chief Complaint: Cold Sx ED Provider: Jase Salas Dx/Rx/DC Orders Clinical Impression: Urinary tract infection Prescriptions: New amoxicillin-pot clavulanate 875-125 mg tablet 875 mg PO Q12H Qty: 20 0RF No Action pravastatin 40 MG tablet 40 mg PO DAILY Patient Comments: CHOLESTEROL ferrous sulfate [FeroSul] 325 mg (65 mg iron) tablet 325 mg PO QODAY Qty: 30 1RF warfarin 3 mg tablet 3 - 4 mg PO DAILY metoprolol tartrate 50 mg tablet 50 mg PO BID Qty: 180 3RF Primary Care Provider: Guille Zarate Referrals: Guille Zarate MD [Primary Care Provider] - 3-5 Days Print Language: [place] Disposition Disposition: Home, Self Care
--- NOTE | 2024-07-14 20:35 | RAD_ITS ---
PROCEDURE: CHEST PA AND LATERAL 07/14/2024 REASON FOR EXAM: COUGH TECHNIQUE: Frontal and lateral views of the chest. COMPARISON: Chest radiograph dated 11/10/2023 FINDINGS: Hardware: Sternotomy wires are present. Heart: Heart size is normal. Mediastinum: The mediastinal contour is unremarkable. Lungs: The lungs are clear. Bones: Degenerative changes are identified within the thoracic spine. RAD/Chest PA and Lateral IMPRESSION: NO ACUTE FINDINGS. Reading Location: [facility]
[2024-07-14 20:48] LABS: Absolute Lymphocyte Count 0.98 X10^3/uL (0.83-4.51); Absolute Neutrophil Count 4.8 X10^3/uL (2.0-7.7); Basophil# 0.02 X10^3/uL; Basophil% 0.3 % (0-1); Eosinophil# 0.05 X10^3/uL; Eosinophils% 0.8 % (0-5); Hematocrit 36.3 % (37-47); Hemoglobin 12.6 g/dL (12.0-15.0); Lymphocyte # 0.98 X10^3/ul (0.83-4.51); Mean Corp Hgb Conc 34.7 g/dL (32-36); Mean Corpuscular Hgb 31.1 pg (27.0-32.0); Mean Corpuscular Volume 89.6 fL (81-99); Mean Platelet Vol. 9.8 fl (6.2-12.0); Monocyte# 0.69 X10^3/uL; Monocyte% 10.6 % (0-10); NRBC Flagged by Analyzer 0 % (0-5); Neutrophil # 4.78 X10^3/uL (2.7-7.7); Platelet Count 170 K/mm3 (150-450); RBC Distribution Width CV 12.2 % (11.6-14.6); RBC Distribution Width SD 39.4 fl (35.1-43.9); Red Blood Count 4.05 M/mm3 (4.2-5.4); White Blood Count 6.5 K/mm3 (4.4-11.0)
[2024-07-14 21:05] LABS: Anion Gap 11 (5-15); BUN 10 mg/dL (4-19); BUN/Creat Ratio 13.3 RATIO (10-20); Carbon Dioxide 24.4 mmol/L (21.0-32.0); Chloride 104 mmol/L (98-108); Creatinine, Serum 0.72 mg/dL (0.70-1.20); EST Glomerular Filtration Rate 87 (>60); Glucose 114 mg/dL (70-99); Potassium 4.2 mmol/L (3.3-5.1); Sodium Level 139 mmol/L (133-145)
[2024-07-14 21:20] LABS: Mucous, Urine 0 SEEN /hpf (<or=2+); Red Blood Cells-Urine 0 SEEN /hpf (0-5)
[2024-07-14 21:22] LABS: Color, Urine Yellow (Yellow); Glucose, Dipstick Normal (Normal); Ketone-Dipstick Negative (Negative); Leukocyte Esterase-Dipstick 500 /ul (Negative); Nitrite-Dipstick Negative (Negative); Occult Blood-Urine 10 /ul (Negative); Protein-Dipstick 15 mg/dl (Negative); Specific Gravity, Urine 1.015 (1.002-1.030); Urine Bilirubin Dipstick Negative (Negative); Urine Clarity Sl. Cloudy (Clear); Urine Urobilinogen 1 mg/dl (Normal)
[2024-07-14 21:26] VITALS: BP 147/106; PULSE 89; RESP 16; O2SAT 95
[2024-07-14 21:28] LABS: Bacteria 1+ /hpf (None Seen); Squamous Epithelial Cells - UA 5-10 SEEN /hpf (5-10); White Blood Cells 5-10 SEEN /hpf (0-5)
[2024-07-14 23:00] VITALS: BP 152/74; PULSE 103; RESP 19; TEMP 39.4; O2SAT 95
[2024-07-14] MEDS: Amox/Clavulanate 875 MG Tablet PO (23:13)
[2024-07-14] MEDS: Acetaminophen 500 MG Tablet 1000 MG PO (23:13)
[2024-07-14 23:16] VITALS: BP 152/74; PULSE 103; RESP 19; TEMP 39.4; O2SAT 96
== END 2024-07-14 23:26 | disposition home or self-care (01) ==
PROVIDERS: Emergency Provider Emergency Medicine; PCP Family Medicine; Visit Provider Emergency Medicine
DX: N39.0 Urinary tract infection, site not specified (principal); I48.0 Paroxysmal atrial fibrillation; I10 Essential (primary) hypertension; Z79.01 Long term (current) use of anticoagulants; Z79.899 Other long term (current) drug therapy; Z87.891 Personal history of nicotine dependence
CPT/HCPCS: 71046; 80048; 81001; 85025; 87631; 99284; A4216